=== PATIENT | female | born 1990 | race Caucasian/White ===

== ENCOUNTER 2016-08-20 01:28 | Emergency (ER) | payer OTHER ==
[2016-08-20 01:36] VITALS: BP 111/73; PULSE 84; RESP 20; TEMP 98.2
[2016-08-20 01:58] LABS: Appearance,Urine Cloudy (Clear); Bacteria,Urine Occasional /hpf; Bilirubin,Urine Negative (Negative); Calcium Oxalate Crystals,Urine Rare /hpf; Glucose,Urine (UA) Negative (Negative); Ketones,Urine Negative (Negative); Leukocyte Esterase,Urine Small (Negative); Mucus,Urine Occasional /hpf; Nitrite,Urine Negative (Negative); PH, Urine 5.5 (5.0-8.0); Particle Count 11383; Protein,Urine Trace (Negative); RBC,Urine 3 /hpf (0-5); Specific Gravity,Urine 1.029 (1.001-1.035); Squamous Epithelial Cell,Urine 9 /hpf (0-4); UA Billing (MACRO vs. MICRO) MICRO; WBC,Urine 2 /hpf (0-5)
[2016-08-20] MEDS ORDERED: IBUPROFEN 600 MG TAB PO STA (02:19)
--- NOTE | 2016-08-20 03:30 | ED ---
Female Urogenital HPI - General Chief complaint: Urogenital Stated complaint: Female Time Seen by Provider: 08/20/16 01:42 Source: patient, RN notes reviewed Mode of arrival: ambulatory Limitations: no limitations - History of Present Illness Initial comments: Patient is a 26-year-old female presents to the emergency room for evaluation of lower pelvic pain. Patient states the pain going on for the past week. Patient states the pain has been worsening throughout the night and this morning. Patient states she is having left lower quadrant pain. Patient states she is having 8 out of 10 constant pain that will not subside. Patient denies taking anything for her symptoms. Patient states her last menses was about a month ago. Patient is not sure if she is . Patient denies pain or burning during urination, trouble urinating or blood in urine. Patient states she has a history of chlamydia. Patient denies nausea or vomiting. Patient denies chest pain or shortness of breath. Patient denies headache or dizziness. Patient does state she smokes daily. Last Menstrual Period: 07/17/16 - Related Data Home Medications Medication Instructions Recorded Confirmed Ibuprofen [Motrin] 800 mg PO Q6HR PRN 04/01/15 10/22/15 Albuterol Inhaler [Ventolin Hfa 2 puff INHALATION RT-Q4H PRN 09/30/15 10/22/15 Inhaler] Omeprazole 20 mg PO PC-LUNCH 09/30/15 10/22/15 Gabapentin [Gabapentin] 300 mg PO BID 10/22/15 10/22/15 HYDROcodone/APAP 5-325MG [[place] 5] 1 tab PO Q4-6H PRN 10/22/15 10/22/15 Previous Rx's Medication Instructions Recorded traMADol HCl [Ultram] 50 mg PO Q6H PRN #20 tab 03/12/15 Naproxen [Naprosyn] 500 mg PO Q12HR #20 tab 09/30/15 Ibuprofen [Motrin] 600 mg PO Q6HR PRN #20 tab 08/20/16 Allergies Allergy/AdvReac Type Severity Reaction Status Date / Time codeine AdvReac Swelling Verified 08/20/16 01:37 Review of Systems ROS Statement: Those systems with pertinent positive or pertinent negative responses have been documented in the HPI. ROS Other: All systems not noted in ROS Statement are negative. Past Medical History Past Medical History: Asthma History of Any Multi-Drug Resistant Organisms: None Reported Past Surgical History: Adenoidectomy, Section Additional Past Surgical History / Comment(s): left knee, Past Psychological History: Anxiety, Bipolar, Depression Smoking Status: Current every day smoker Past Alcohol Use History: None Reported Past Drug Use History: None Reported General Exam - General Exam Comments Initial Comments: laying in exam room, no acute distress. Limitations: no limitations General appearance: alert, in no apparent distress Head exam: Present: atraumatic, normocephalic, normal inspection Eye exam: Present: normal appearance ENT exam: Present: normal exam Neck exam: Present: normal inspection Respiratory exam: Present: normal lung sounds bilaterally. Absent: respiratory distress Cardiovascular Exam: Present: regular rate, normal rhythm, normal heart sounds GI/Abdominal exam: Present: soft, tenderness (LLQ), normal bowel sounds. Absent : distended, guarding, rebound, rigid External exam: Present: normal external exam Speculum exam: Present: vaginal discharge By manual exam: Present: adnexal tenderness (left). Absent: cervical motion tenderness Extremities exam: Present: normal inspection Back exam: Present: normal inspection Neurological exam: Present: alert, oriented X3, CN II-XII intact, normal gait Psychiatric exam: Present: normal affect, normal mood Skin exam: Present: warm, dry, intact, normal color. Absent: rash Course Vital Signs 08/20/16 01:33 Temperature 98.2 F Pulse Rate 84 Respiratory 20 Rate Blood Pressure 111/73 O2 Sat by Pulse 98 Oximetry Medical Decision Making - Medical Decision Making patient is a 26-year-old female presents to the emergency room for reevaluation left lower quadrant pain. Ultrasound shows no signs of ovarian cyst or ovarian torsion. Urinalysis shows no significant findings. Vaginal cultures pending. Patient advised follow-up with either primary care provider or [facility]. Patient states she understands everything that was discussed with her. Return parameters discussed. Case discussed Dr. Maravilla. - Lab Data Lab Results 08/20/16 08/20/16 08/20/16 Range/Units 01:46 01:46 02:31 Urine Color Yellow Urine Appearance Cloudy H (Clear) Urine pH 5.5 (5.0-8.0) Ur Specific [place] 1.029 (1.001-1.035) Urine Protein Trace H (Negative) Urine Glucose (UA) Negative (Negative) Urine Ketones Negative (Negative) Urine Blood Negative (Negative) Urine Nitrite Negative (Negative) Urine Bilirubin Negative (Negative) Urine Urobilinogen 2.0 (<2.0) mg/dL Ur Leukocyte Esterase Small H (Negative) Urine RBC 3 (0-5) /hpf Urine WBC 2 (0-5) /hpf Ur Squamous Epith Cells 9 H (0-4) /hpf Calcium Oxalate Crystal Rare H (None) /hpf Urine Bacteria Occasional H (None) /hpf Urine Mucus Occasional H (None) /hpf Urine HCG, Qual Not Detected (Not Detectd) Trichomonas Ag (Rapid) Negative (Negative) - Radiology Data Radiology results: report reviewed, image reviewed Disposition Clinical Impression: Abdominal pain Disposition: HOME SELF-CARE Condition: Good Instructions: Abdominal Pain (ED) Additional Instructions: Take ibuprofen as needed for pain. Apply warm moist heat. Please follow-up with primary care provider or [facility] for further evaluation. If any new symptom arises or symptoms worsen, return to ER as soon as possible. Prescriptions: Ibuprofen [Motrin] 600 mg PO Q6HR PRN #20 tab PRN Reason: Pain Referrals: Ana María Lozano MD [STAFF PHYSICIAN] - 1-2 days Marilyn Vaughn DO [Doctor of Osteopathic Medicine] - 1-2 days Time of Disposition: 04:04
--- NOTE | 2016-08-20 04:03 | US ---
EXAM: US FEMALE PELVIS CLINICAL HISTORY: Reason: Pain TECHNIQUE: Real-time transabdominal and transvaginal female pelvic ultrasound COMPARISON: No relevant prior studies available. FINDINGS: Uterus/cervix: The uterus measures 9.4 x 5.6 x 4.9 cm. The uterus is anteverted. No masses. The endometrium measures up to 14 mm. Nabothian cysts are noted within the cervix. Ovaries: The right ovary measures 3.1 x 1.6 x 1.5 cm. Left ovary measures 3.3 x 1.9 x 1.6 cm. No mass. No torsion. Free fluid: Trace amount of free fluid within the pelvis. IMPRESSION: No acute findings.
== END 2016-08-20 04:11 | disposition home or self-care (01) ==
LOC: EC 01:28
DX: R10.32 Left lower quadrant pain (principal); N89.8 Other specified noninflammatory disorders of vagina; F17.200 Nicotine dependence, unspecified, uncomplicated; Z79.899 Other long term (current) drug therapy; Z88.5 Allergy status to narcotic agent
CPT/HCPCS: 76830; 81001; 81025; 87491; 87591; 87808; 93975; 99284

== ENCOUNTER 2016-09-26 16:13 | Emergency (ER) | payer OTHER ==
[2016-09-26] MEDS ORDERED: KETOROLAC 30 MG/ML 1 ML VIAL IVP STA (16:47)
[2016-09-26] MEDS ORDERED: ONDANSETRON 4 MG/2 ML VIAL IVP STA (16:47)
[2016-09-26] MEDS ORDERED: SODIUM CHLORIDE 0.9% 1,000 ML IV ONE (16:47)
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
[2016-09-26 17:06] LABS: Basophils # (A) 0.1 k/uL (0-0.2); Basophils % (A) 1 %; CH 28.8; CHCM 33.5; Eosinophils # (A) 0.1 k/uL (0-0.7); Eosinophils % (A) 1 %; HCT 41.4 % (34.0-46.0); HDW 2.33; HGB 14.1 gm/dL (11.4-16.0); Luc # (Auto) 0.15; Luc % (Auto) 2; Lymphocytes # (A) 2.8 k/uL (1.0-4.8); Lymphocytes % (A) 28 %; MCH 29.4 pg (25.0-35.0); MCHC 34.2 g/dL (31.0-37.0); MCV 86.2 fL (80.0-100.0); Mean Platelet Volume 8.3; Monocytes # (A) 0.5 k/uL (0-1.0); Monocytes % (A) 5 %; Neutrophils # (A) 6.3 k/uL (1.3-7.7); Neutrophils % (A) 64 %; RDW 15.6 % (11.5-15.5); WBC 9.8 k/uL (3.8-10.6); WBC (Perox) 9.66
--- NOTE | 2016-09-26 17:40 | US ---
EXAMINATION TYPE: US pelvis complete transvag DATE OF EXAM: 09/26/2016 COMPARISON: NONE CLINICAL HISTORY: Low abd pain and nausea and vomiting x 1 week TECHNIQUE: Date of LMP: 08/21/2016 EXAM MEASUREMENTS: Uterus: 10.4 x 5.6 x 5.8 cm Endometrial Stripe: 1.7 cm Right Ovary: 2.3 x 1.7 x 2.2 cm Left Ovary: 2.7 x 1.8 x 2.8 cm Limited examination due to bowel gas. 1. Uterus: anteverted, appears wnl 2. Endometrium: appears thickened 3. Right Ovary: appears wnl 4. Left Ovary: appears wnl Spectral, color and waveform doppler imaging shows good arterial and venous flow within the ovaries ; there is no evidence for ovarian torsion. 5. Bilateral Adnexa: appears wnl 6. Posterior cul-de-sac: appears wnl IMPRESSION: Negative transabdominal pelvic sonogram. There is borderline enlarged endometrium.
[2016-09-26 17:47] LABS: ALT 37 U/L (9-52); AST 20 U/L (14-36); Alkaline Phosphatase 66 U/L (38-126); Anion Gap 13 mmol/L; Blood Urea Nitrogen 11 mg/dL (7-17); Calcium 9.4 mg/dL (8.4-10.2); Carbon Dioxide 19 mmol/L (22-30); Chloride 108 mmol/L (98-107); Glucose 147 mg/dL (74-99); Non-African American GFR(MDRD) >60 (>60 ml/min/1.73 sqM); Sodium 140 mmol/L (137-145); Total Bilirubin 0.4 mg/dL (0.2-1.3); Total Protein 6.6 g/dL (6.3-8.2)
[2016-09-26 18:49] LABS: Appearance,Urine Clear (Clear); Bilirubin,Urine Negative (Negative); Glucose,Urine (UA) 2+ (Negative); Ketones,Urine Negative (Negative); Leukocyte Esterase,Urine Small (Negative); Mucus,Urine Rare /hpf; Nitrite,Urine Negative (Negative); PH, Urine 6.5 (5.0-8.0); Particle Count 4210; Protein,Urine Negative (Negative); RBC,Urine 1 /hpf (0-5); Specific Gravity,Urine 1.013 (1.001-1.035); Squamous Epithelial Cell,Urine 2 /hpf (0-4); UA Billing (MACRO vs. MICRO) MICRO; Urobilinogen,Urine <2.0 mg/dL (<2.0); WBC,Urine 1 /hpf (0-5)
[2016-09-26 19:23] VITALS: PULSE 80; RESP 18
[2016-09-26 20:36] VITALS: BP 119/68; TEMP 98.8
== END 2016-09-26 20:36 | disposition home or self-care (01) ==
LOC: EC 16:13
DX: O21.0 Mild hyperemesis gravidarum (principal); O99.89 Other specified diseases and conditions complicating pregnancy, childbirth and the puerperium; R10.2 Pelvic and perineal pain; O99.331 Smoking (tobacco) complicating pregnancy, first trimester; F17.200 Nicotine dependence, unspecified, uncomplicated; Z3A.01 Less than 8 weeks gestation of pregnancy; Z88.5 Allergy status to narcotic agent
CPT/HCPCS: 99284; 96374; 96375; 96361 ×3; 36415; 80053; 83605; 83690; 85025; 81001; 81025; 84702; 87808; 87491; 87591; 93976; 76856; J2405; J1885

== ENCOUNTER 2017-04-09 17:31 | Emergency (ER) | payer OTHER ==
[2017-04-09 17:39] VITALS: TEMP 98.1
[2017-04-09] MEDS ORDERED: methylPREDNISolone SOD SUCCI 125 MG/2 ML VIAL IV STA (17:58)
[2017-04-09] MEDS ORDERED: ALBUTEROL NEBULIZED 2.5 MG/3 ML INHALATION STA (17:58)
[2017-04-09] MEDS ORDERED: SODIUM CHLORIDE 0.9% 1,000 ML IV STA (18:03)
--- NOTE | 2017-04-09 18:15 | ED ---
General Adult HPI - General Chief complaint: Chest Pain Stated complaint: Chest Pain/PEARL Time Seen by Provider: 04/09/17 17:37 Source: patient, RN notes reviewed Mode of arrival: EMS Limitations: no limitations - History of Present Illness Initial comments: 26-year-old female presents to the emergency department with a chief complaint of difficulty in breathing. Patient states that she is an asthmatic. Patient states she is 33 weeks . Patient states that she started to have some difficulty breathing last night and then today she was at a store that had a high chemical smell and she has had increased difficulty in breathing since then. Patient is a smoker. Patient states that she called her doctor and they referred her here. She just feels very tight like she can't get a good deep breath. Patient also admits to some lower abdominal pain with this. Patient denies any fever or chills. She does admit to a cough. Patient denies any recent fever, chills, back pain, abdominal pain, nausea vomiting, numbness or tingling, dysuria or hematuria, constipation or diarrhea, headaches or visual changes, or any other current symptoms. - Related Data Previous Rx's Medication Instructions Recorded Albuterol Nebulized [Ventolin 2.5 mg INHALATION Q4H #20 nebu 04/09/17 Nebulized] Allergies Allergy/AdvReac Type Severity Reaction Status Date / Time codeine AdvReac Swelling Verified 04/09/17 17:44 Review of Systems ROS Statement: Those systems with pertinent positive or pertinent negative responses have been documented in the HPI. ROS Other: All systems not noted in ROS Statement are negative. Past Medical History Past Medical History: Asthma History of Any Multi-Drug Resistant Organisms: None Reported Past Surgical History: Adenoidectomy, Section Additional Past Surgical History / Comment(s): left knee, Past Psychological History: Anxiety, Bipolar, Depression Smoking Status: Current every day smoker Past Alcohol Use History: None Reported Past Drug Use History: None Reported General Exam Limitations: no limitations General appearance: alert, in no apparent distress Eye exam: Present: normal appearance, PERRL, EOMI. Absent: scleral icterus, conjunctival injection, periorbital swelling ENT exam: Present: normal exam, mucous membranes moist Neck exam: Present: normal inspection. Absent: tenderness, meningismus, lymphadenopathy Respiratory exam: Present: normal lung sounds bilaterally, wheezes (expiratory) , decreased breath sounds. Absent: respiratory distress, rales, rhonchi, stridor Cardiovascular Exam: Present: regular rate, normal rhythm, normal heart sounds. Absent: systolic murmur, diastolic murmur, rubs, gallop, clicks Neurological exam: Present: alert, oriented X3 Psychiatric exam: Present: normal affect, normal mood Skin exam: Present: warm, dry, intact, normal color. Absent: rash Course Vital Signs 04/09/17 04/09/17 04/09/17 17:36 18:39 18:59 Temperature 98.1 F Pulse Rate 105 H 78 80 Respiratory 20 Rate Blood Pressure 139/64 O2 Sat by Pulse 94 L Oximetry 04/09/17 19:34 Temperature Pulse Rate 115 H Respiratory 17 Rate Blood Pressure 130/60 O2 Sat by Pulse 95 Oximetry Medical Decision Making - Medical Decision Making 26-year-old female presents to the emergency department with chief complaint of shortness of breath with a history of asthma. At this time patient is reevaluated and she states she's feeling better. We did discuss staying away from fumes. We did discuss most likely asthma exacerbation. We will put her on treatments for home. We discussed follow-up with her family care doctor we discussed return parameters all questions. We discussed no smoking. Patient stated that she understood and she is in agreement with this plan. All questions have been answered. She'll be discharged. - Lab Data Result diagrams: 04/09/17 18:28 04/09/17 18:28 Lab Results 04/09/17 04/09/17 Range/Units 18:28 18:28 WBC 10.2 (3.8-10.6) k/uL RBC 3.83 (3.80-5.40) m/uL Hgb 10.8 L (11.4-16.0) gm/dL Hct 33.2 L (34.0-46.0) % MCV 86.8 (80.0-100.0) fL MCH 28.1 (25.0-35.0) pg MCHC 32.4 (31.0-37.0) g/dL RDW 14.0 (11.5-15.5) % Plt Count 261 (150-450) k/uL Neutrophils % 75 % Lymphocytes % 14 % Monocytes % 7 % Eosinophils % 2 % Basophils % 0 % Neutrophils # 7.6 (1.3-7.7) k/uL Lymphocytes # 1.5 (1.0-4.8) k/uL Monocytes # 0.7 (0-1.0) k/uL Eosinophils # 0.2 (0-0.7) k/uL Basophils # 0.0 (0-0.2) k/uL Sodium 138 (137-145) mmol/L Potassium 3.6 (3.5-5.1) mmol/L Chloride 109 H (98-107) mmol/L Carbon Dioxide 20 L (22-30) mmol/L Anion Gap 9 mmol/L BUN 7 (7-17) mg/dL Creatinine 0.60 (0.52-1.04) mg/dL Est GFR (MDRD) Af Amer >60 (>60 ml/min/1.73 sqM) Est GFR (MDRD) Non-Af >60 (>60 ml/min/1.73 sqM) Glucose 115 H (74-99) mg/dL Calcium 8.6 (8.4-10.2) mg/dL Total Bilirubin 0.3 (0.2-1.3) mg/dL AST 16 (14-36) U/L ALT 17 (9-52) U/L Alkaline Phosphatase 115 (38-126) U/L Total Protein 5.9 L (6.3-8.2) g/dL Albumin 3.1 L (3.5-5.0) g/dL Disposition Clinical Impression: Asthma exacerbation Disposition: HOME SELF-CARE Condition: Stable Instructions: Asthma (ED) Additional Instructions: Please use medication as discussed. Please follow up with family doctor if symptoms have not improved over the next two days. Please return to the emergency room if your symptoms increase or worsen or for any other concerns. Prescriptions: Albuterol Nebulized [Ventolin Nebulized] 2.5 mg INHALATION Q4H #20 nebu Referrals: Maurilio Paniagua MD [STAFF PHYSICIAN] - 1-2 days Time of Disposition: 20:00
[2017-04-09] MEDS ORDERED: METOCLOPRAMIDE 5 MG/ML 2 ML VIAL IVP STA (18:22)
[2017-04-09 18:39] LABS: Basophils % (A) 0 %; Eosinophils # (A) 0.2 k/uL (0-0.7); Eosinophils % (A) 2 %; HCT 33.2 % (34.0-46.0); HGB 10.8 gm/dL (11.4-16.0); Lymphocytes # (A) 1.5 k/uL (1.0-4.8); Lymphocytes % (A) 14 %; MCH 28.1 pg (25.0-35.0); MCHC 32.4 g/dL (31.0-37.0); MCV 86.8 fL (80.0-100.0); Monocytes # (A) 0.7 k/uL (0-1.0); Monocytes % (A) 7 %; Neutrophils # (A) 7.6 k/uL (1.3-7.7); Neutrophils % (A) 75 %; Platelet Count 261 k/uL (150-450); RBC 3.83 m/uL (3.80-5.40); WBC 10.2 k/uL (3.8-10.6)
[2017-04-09 18:49] LABS: ALT 17 U/L (9-52); AST 16 U/L (14-36); Albumin 3.1 g/dL (3.5-5.0); Alkaline Phosphatase 115 U/L (38-126); Anion Gap 9 mmol/L; Blood Urea Nitrogen 7 mg/dL (7-17); Calcium 8.6 mg/dL (8.4-10.2); Carbon Dioxide 20 mmol/L (22-30); Chloride 109 mmol/L (98-107); Glucose 115 mg/dL (74-99); Potassium 3.6 mmol/L (3.5-5.1); Sodium 138 mmol/L (137-145); Total Bilirubin 0.3 mg/dL (0.2-1.3); Total Protein 5.9 g/dL (6.3-8.2)
[2017-04-09 19:36] VITALS: BP 130/60; PULSE 115; RESP 17
== END 2017-04-09 20:15 | disposition home or self-care (01) ==
LOC: EC 17:31
DX: O99.513 Diseases of the respiratory system complicating pregnancy, third trimester (principal); J45.901 Unspecified asthma with (acute) exacerbation; O99.89 Other specified diseases and conditions complicating pregnancy, childbirth and the puerperium; R10.30 Lower abdominal pain, unspecified; O99.333 Smoking (tobacco) complicating pregnancy, third trimester; F17.200 Nicotine dependence, unspecified, uncomplicated; Z88.5 Allergy status to narcotic agent; Z3A.33 33 weeks gestation of pregnancy; Z98.890 Other specified postprocedural states
CPT/HCPCS: 36415; 94640; 93005; 80053; 85025; 99285; 96374; 96375; 96361; J2765; J2930

== ENCOUNTER 2018-06-29 22:00 | Emergency (ER) | payer OTHER ==
[2018-06-29 22:05] VITALS: RESP 16; TEMP 98.6
--- NOTE | 2018-06-29 22:35 | ED ---
Abdominal Pain HPI - General Chief Complaint: Abdominal Pain Stated Complaint: Abd pain, vaginal bleeding Time Seen by Provider: 06/29/18 22:26 Source: patient Mode of arrival: ambulatory Limitations: no limitations - History of Present Illness Initial Comments: This patient is a 28-year-old woman who presents to be evaluated for lower abdominal cramping and irregular menstrual cycle. Patient states that she has been having irregular cycles for the past 3 months or so. Her last menstrual cycle had been May 23. She states that in addition for the past 3 weeks she has had pain across her low abdomen. She states that it is a constant crampy sensation, moderate intensity. She has not noted any worsening or relieving factors. She has not noted a change in bowel movements or in urination. No vaginal discharge. MD Complaint: abdominal pain Onset/Timin -: week(s) Location: LLQ, RLQ, suprapubic Radiation: none Severity: moderate Quality: cramping Consistency: constant Improves With: nothing Worsens With: nothing - Related Data Home Medications Medication Instructions Recorded Confirmed ALPRAZolam [Xanax] 0.25 mg PO TID PRN 06/29/18 06/29/18 OXcarbazepine [Trileptal] 150 mg PO BID 06/29/18 06/29/18 buPROPion XL [Wellbutrin Xl] 150 mg PO DAILY 06/29/18 06/29/18 Allergies Allergy/AdvReac Type Severity Reaction Status Date / Time codeine AdvReac Swelling Verified 06/29/18 22:52 Review of Systems ROS Statement: Those systems with pertinent positive or pertinent negative responses have been documented in the HPI. ROS Other: All systems not noted in ROS Statement are negative. Constitutional: Denies: fever, chills Respiratory: Denies: cough, dyspnea Cardiovascular: Denies: chest pain, palpitations, edema Gastrointestinal: Reports: abdominal pain. Denies: nausea, vomiting, diarrhea, constipation Genitourinary: Reports: abnormal menses. Denies: dysuria, frequency, hematuria, discharge Musculoskeletal: Denies: back pain Skin: Denies: rash Neurological: Denies: headache, weakness, numbness Past Medical History Past Medical History: Asthma History of Any Multi-Drug Resistant Organisms: None Reported Past Surgical History: Adenoidectomy, Section Additional Past Surgical History / Comment(s): left knee, Past Psychological History: Anxiety, Bipolar, Depression Smoking Status: Current every day smoker Past Alcohol Use History: None Reported Past Drug Use History: Marijuana General Exam Limitations: no limitations General appearance: alert, in no apparent distress Head exam: Present: atraumatic, normocephalic Eye exam: Present: normal appearance. Absent: scleral icterus, conjunctival i njection ENT exam: Present: normal oropharynx Neck exam: Present: normal inspection Respiratory exam: Present: normal lung sounds bilaterally. Absent: respiratory distress, wheezes, rales, rhonchi, stridor Cardiovascular Exam: Present: regular rate, normal rhythm, normal heart sounds. Absent: systolic murmur, diastolic murmur, rubs, gallop GI/Abdominal exam: Present: soft, normal bowel sounds. Absent: distended, tenderness, guarding, rebound, rigid, mass, pulsatile mass, hernia Extremities exam: Present: normal inspection, normal capillary refill. Absent: pedal edema, calf tenderness Back exam: Present: normal inspection. Absent: CVA tenderness (R), CVA tenderness (L) Neurological exam: Present: alert Skin exam: Present: warm, dry, intact, normal color. Absent: rash Course Vital Signs 06/29/18 22:02 Temperature 98.6 F Pulse Rate 80 Respiratory 16 Rate Blood Pressure 105/71 O2 Sat by Pulse 97 Oximetry Medical Decision Making - Lab Data Result diagrams: 06/29/18 22:42 06/29/18 22:42 Lab Results 06/29/18 06/29/18 06/29/18 Range/Units 22:42 22:42 22:42 WBC 14.2 H (3.8-10.6) k/uL RBC 4.77 (3.80-5.40) m/uL Hgb 14.5 (11.4-16.0) gm/dL Hct 43.3 (34.0-46.0) % MCV 90.8 (80.0-100.0) fL MCH 30.4 (25.0-35.0) pg MCHC 33.5 (31.0-37.0) g/dL RDW 13.6 (11.5-15.5) % Plt Count 304 (150-450) k/uL Neutrophils % 79 % Lymphocytes % 14 % Monocytes % 4 % Eosinophils % 1 % Basophils % 0 % Neutrophils # 11.3 H (1.3-7.7) k/uL Lymphocytes # 2.0 (1.0-4.8) k/uL Monocytes # 0.6 (0-1.0) k/uL Eosinophils # 0.1 (0-0.7) k/uL Basophils # 0.1 (0-0.2) k/uL Sodium 138 (137-145) mmol/L Potassium 4.3 (3.5-5.1) mmol/L Chloride 108 H (98-107) mmol/L Carbon Dioxide 22 (22-30) mmol/L Anion Gap 8 mmol/L BUN 13 (7-17) mg/dL Creatinine 0.88 (0.52-1.04) mg/dL Est GFR (CKD-EPI)AfAm >90 (>60 ml/min/1.73 sqM) Est GFR (CKD-EPI)NonAf >90 (>60 ml/min/1.73 sqM) Glucose 87 (74-99) mg/dL Calcium 9.3 (8.4-10.2) mg/dL Total Bilirubin 0.7 (0.2-1.3) mg/dL AST 22 (14-36) U/L ALT 26 (9-52) U/L Alkaline Phosphatase 48 (38-126) U/L Total Protein 6.5 (6.3-8.2) g/dL Albumin 4.1 (3.5-5.0) g/dL Amylase <30 L (30-110) U/L Lipase 82 (23-300) U/L Urine Color Urine Appearance (Clear) Urine pH (5.0-8.0) Ur Specific [place] (1.001-1.035) Urine Protein (Negative) Urine Glucose (UA) (Negative) Urine Ketones (Negative) Urine Blood (Negative) Urine Nitrite (Negative) Urine Bilirubin (Negative) Urine Urobilinogen (<2.0) mg/dL Ur Leukocyte Esterase (Negative) Urine RBC (0-5) /hpf Urine WBC (0-5) /hpf Ur Squamous Epith Cells (0-4) /hpf Urine Mucus (None) /hpf Urine HCG, Qual Detected (Not Detectd) 06/29/18 Range/Units 22:42 WBC (3.8-10.6) k/uL RBC (3.80-5.40) m/uL Hgb (11.4-16.0) gm/dL Hct (34.0-46.0) % MCV (80.0-100.0) fL MCH (25.0-35.0) pg MCHC (31.0-37.0) g/dL RDW (11.5-15.5) % Plt Count (150-450) k/uL Neutrophils % % Lymphocytes % % Monocytes % % Eosinophils % % Basophils % % Neutrophils # (1.3-7.7) k/uL Lymphocytes # (1.0-4.8) k/uL Monocytes # (0-1.0) k/uL Eosinophils # (0-0.7) k/uL Basophils # (0-0.2) k/uL Sodium (137-145) mmol/L Potassium (3.5-5.1) mmol/L Chloride (98-107) mmol/L Carbon Dioxide (22-30) mmol/L Anion Gap mmol/L BUN (7-17) mg/dL Creatinine (0.52-1.04) mg/dL Est GFR (CKD-EPI)AfAm (>60 ml/min/1.73 sqM) Est GFR (CKD-EPI)NonAf (>60 ml/min/1.73 sqM) Glucose (74-99) mg/dL Calcium (8.4-10.2) mg/dL Total Bilirubin (0.2-1.3) mg/dL AST (14-36) U/L ALT (9-52) U/L Alkaline Phosphatase (38-126) U/L Total Protein (6.3-8.2) g/dL Albumin (3.5-5.0) g/dL Amylase (30-110) U/L Lipase (23-300) U/L Urine Color Yellow Urine Appearance Cloudy H (Clear) Urine pH 6.0 (5.0-8.0) Ur Specific [place] 1.026 (1.001-1.035) Urine Protein Trace H (Negative) Urine Glucose (UA) Negative (Negative) Urine Ketones Trace H (Negative) Urine Blood Negative (Negative) Urine Nitrite Negative (Negative) Urine Bilirubin Negative (Negative) Urine Urobilinogen 2.0 (<2.0) mg/dL Ur Leukocyte Esterase Moderate H (Negative) Urine RBC 1 (0-5) /hpf Urine WBC 5 (0-5) /hpf Ur Squamous Epith Cells 33 H (0-4) /hpf Urine Mucus Occasional H (None) /hpf Urine HCG, Qual (Not Detectd) Disposition Clinical Impression: , Abdominal pain Disposition: HOME SELF-CARE Condition: Good Instructions (If sedation given, give patient instructions): Abdominal Pain in (ED) Is patient prescribed a controlled substance at d/c from ED?: No Referrals: Maurilio Paniagua MD [Primary Care Provider] - 1-2 days
[2018-06-29 22:52] LABS: Basophils # (A) 0.1 k/uL (0-0.2); Basophils % (A) 0 %; Eosinophils # (A) 0.1 k/uL (0-0.7); Eosinophils % (A) 1 %; HCT 43.3 % (34.0-46.0); HGB 14.5 gm/dL (11.4-16.0); Lymphocytes % (A) 14 %; MCH 30.4 pg (25.0-35.0); MCHC 33.5 g/dL (31.0-37.0); MCV 90.8 fL (80.0-100.0); Monocytes # (A) 0.6 k/uL (0-1.0); Monocytes % (A) 4 %; Neutrophils # (A) 11.3 k/uL (1.3-7.7); Neutrophils % (A) 79 %; Platelet Count 304 k/uL (150-450); RBC 4.77 m/uL (3.80-5.40); RDW 13.6 % (11.5-15.5); WBC 14.2 k/uL (3.8-10.6)
[2018-06-29 22:56] LABS: Appearance,Urine Cloudy (Clear); Bilirubin,Urine Negative (Negative); Blood,Urine Negative (Negative); Color,Urine Yellow; Glucose,Urine (UA) Negative (Negative); Ketones,Urine Trace (Negative); Leukocyte Esterase,Urine Moderate (Negative); Mucus,Urine Occasional /hpf; Nitrite,Urine Negative (Negative); Protein,Urine Trace (Negative); RBC,Urine 1 /hpf (0-5); Specific Gravity,Urine 1.026 (1.001-1.035); Squamous Epithelial Cell,Urine 33 /hpf (0-4); WBC,Urine 5 /hpf (0-5)
[2018-06-29 23:12] LABS: ALT 26 U/L (9-52); AST 22 U/L (14-36); Albumin 4.1 g/dL (3.5-5.0); Alkaline Phosphatase 48 U/L (38-126); Amylase <30 U/L (30-110); Anion Gap 8 mmol/L; Blood Urea Nitrogen 13 mg/dL (7-17); Calcium 9.3 mg/dL (8.4-10.2); Carbon Dioxide 22 mmol/L (22-30); Chloride 108 mmol/L (98-107); Glucose 87 mg/dL (74-99); Lipase 82 U/L (23-300); Potassium 4.3 mmol/L (3.5-5.1); Sodium 138 mmol/L (137-145); Total Bilirubin 0.7 mg/dL (0.2-1.3); Total Protein 6.5 g/dL (6.3-8.2)
[2018-06-29] MEDS ORDERED: ACETAMINOPHEN TAB 325 MG TAB PO STA (23:29)
[2018-06-30 01:09] VITALS: BP 104/61; PULSE 77
--- NOTE | 2018-06-30 01:47 | US ---
EXAM: US Pelvis, Transvaginal CLINICAL HISTORY: Pain TECHNIQUE: Real-time transvaginal pelvic ultrasound (complete) with image documentation. Transvaginal imaging was used for better evaluation of the endometrium and adnexa. COMPARISON: 10/07/2016 FINDINGS: Uterus/cervix: The endometrial stripe is prominent measuring 1.9 cm in thickness. The uterus measures 9.5 x 5 x 6.1 cm. No myometrial mass. Right ovary: The right ovary is not identified either transabdominally or transvaginally. Left ovary: The left ovary measures 2.5 x 3.9 x 2.7 cm. There is a questionable isoechoic rounded structure within the ovary measuring 1.7 x 1.9 cm. Prominent peripheral vascular flow is noted along the margin of this structure. Internal blood flow noted. Free fluid: Trace free fluid noted in the pelvic cul-de-sac. Bladder: Empty bladder which cannot be evaluated with this probe. IMPRESSION: 1. The endometrial stripe is prominent measuring 1.9 cm in thickness. No focal abnormality identified internally. Uterus is otherwise unremarkable. No intrauterine gestation identified. 2. There is a questionable isoechoic rounded structure within the left ovary measuring 1.7 x 1.9 cm. Prominent peripheral vascular flow is noted along the margin of this structure. This demonstrates a sonographic appearance of a early corpus luteum cyst. Please correlate with beta-hCG levels (currently unavailable). No evidence for torsion. 3. The right ovary is not identified on this examination either transabdominally or transvaginally. 4. Trace free fluid in the pelvic cul-de-sac is of uncertain clinical significance.
== END 2018-06-30 01:45 | disposition home or self-care (01) ==
LOC: EC 22:00
DX: O26.891 Other specified pregnancy related conditions, first trimester (principal); R10.31 Right lower quadrant pain; R10.32 Left lower quadrant pain; Z32.01 Encounter for pregnancy test, result positive; O99.341 Other mental disorders complicating pregnancy, first trimester; F31.9 Bipolar disorder, unspecified; F41.9 Anxiety disorder, unspecified; O99.331 Smoking (tobacco) complicating pregnancy, first trimester; F17.200 Nicotine dependence, unspecified, uncomplicated; Z79.899 Other long term (current) drug therapy; Z88.5 Allergy status to narcotic agent; Z3A.01 Less than 8 weeks gestation of pregnancy; Z53.8 Procedure and treatment not carried out for other reasons
CPT/HCPCS: 36415; 76801; 76817; 80053; 81001; 81025; 82150; 83690; 84702; 85025; 99284

== ENCOUNTER 2018-08-26 18:00 | Emergency (ER) | payer OTHER ==
[2018-08-26 18:14] VITALS: RESP 18
--- NOTE | 2018-08-26 19:58 | US ---
EXAMINATION TYPE: Transabdominal DATE OF EXAM: 08/26/2018 7:43 PM COMPARISON: US CLINICAL HISTORY: Pain. Generalized abdominal,back, and pelvic pain today with nausea and vomiting; G 5P4, smoker EXAM PERFORMED: Transabdominal (TA) EXAM MEASUREMENTS: GESTATIONAL AGE / DATING Physician Established: (11 weeks/6 days) EDC: 03/11/2019 Dates by LMP: LMP unsure Dates by First Scan: no IUP seen on June US. Dates by Current Scan for: nonviable IUP (8 weeks/0 days) MATERNAL ANATOMY Uterus: 13.6 x 8.3 x 7.3cm Right Ovary: 2.9 x 2.6 x 1.2cm Left Ovary: 2.6 x 2.3 x 1.9cm Post CDS / Adnexa: wnl Presence of free fluid: nop Presence of corpus luteal cyst: not identified in either ovary Presence of subchorionic bleed: no GESTATION / SURVEY CRL: 1.5 (8 weeks/0 days) Yolk Sac (normal less than 6mm): not seen Heart Rate: No heart rate detected by Power Color, Color Flow, M Mode or PW Doppler Date of LMP: unsure Beta HcG (if available): Not available Single, non viable, IUP at 8 weeks/0 days; no heart rate detected by Power Color, Color Flow, M Mode or PW Doppler. IMPRESSION: There is evidence of intrauterine demise at approximately 8 weeks gestation.
[2018-08-26] MEDS ORDERED: METOCLOPRAMIDE 5 MG/ML 2 ML VIAL IVP STA (20:00)
[2018-08-26 20:21] LABS: Basophils # (A) 0.1 k/uL (0-0.2); Basophils % (A) 0 %; Eosinophils # (A) 0.1 k/uL (0-0.7); Eosinophils % (A) 1 %; HCT 44.6 % (34.0-46.0); HGB 14.8 gm/dL (11.4-16.0); Lymphocytes # (A) 2.2 k/uL (1.0-4.8); Lymphocytes % (A) 18 %; MCH 30.1 pg (25.0-35.0); MCHC 33.2 g/dL (31.0-37.0); MCV 90.7 fL (80.0-100.0); Mean Platelet Volume 8.2; Monocytes # (A) 0.6 k/uL (0-1.0); Monocytes % (A) 4 %; Neutrophils # (A) 9.6 k/uL (1.3-7.7); Neutrophils % (A) 75 %; Platelet Count 272 k/uL (150-450); RBC 4.92 m/uL (3.80-5.40); RDW 13.8 % (11.5-15.5); WBC 12.8 k/uL (3.8-10.6)
[2018-08-26 20:27] LABS: Appearance,Urine Cloudy (Clear); Bilirubin,Urine Negative (Negative); Blood,Urine Negative (Negative); Color,Urine Yellow; Glucose,Urine (UA) Negative (Negative); Ketones,Urine Negative (Negative); Leukocyte Esterase,Urine Negative (Negative); Mucus,Urine Rare /hpf; Nitrite,Urine Negative (Negative); Protein,Urine Negative (Negative); Specific Gravity,Urine 1.016 (1.001-1.035); Squamous Epithelial Cell,Urine 16 /hpf (0-4); Urobilinogen,Urine <2.0 mg/dL (<2.0); WBC,Urine 4 /hpf (0-5)
[2018-08-26 20:33] LABS: ALT 16 U/L (9-52); AST 16 U/L (14-36); African American GFR (CKD) >90 (>60 ml/min/1.73 sqM); Albumin 4.6 g/dL (3.5-5.0); Alkaline Phosphatase 64 U/L (38-126); Amylase 41 U/L (30-110); Anion Gap 9 mmol/L; Blood Urea Nitrogen 9 mg/dL (7-17); Calcium 9.5 mg/dL (8.4-10.2); Carbon Dioxide 24 mmol/L (22-30); Chloride 106 mmol/L (98-107); Glucose 96 mg/dL (74-99); Lipase 102 U/L (23-300); Potassium 4.2 mmol/L (3.5-5.1); Sodium 139 mmol/L (137-145); Total Bilirubin 0.4 mg/dL (0.2-1.3); Total Protein 7.2 g/dL (6.3-8.2)
[2018-08-26 20:36] VITALS: TEMP 98.5
[2018-08-26 20:38] LABS: Amphetamine Screen,Urine Not Detected (NotDetected); Barbiturate Screen,Urine Not Detected (NotDetected); Benzodiazepines Screen,Urine Not Detected (NotDetected); Cocaine Screen,Urine Not Detected (NotDetected); Methadone Screen, Urine Not Detected (NotDetected); Opiate Screen,Urine Not Detected (NotDetected); Oxycodone Screen, Urine Not Detected (NotDetected); Phencyclidine Screen,Urine Not Detected (NotDetected); Tricyclic Antidepressant,Urine Not Detected (NotDetected); Urn Cannabinoid Scrn Not Detected (NotDetected)
--- NOTE | 2018-08-26 21:45 | ED ---
Abdominal Pain HPI - General Source: patient Mode of arrival: ambulatory Limitations: no limitations <Atiya Mcintyre - Last Filed: 08/26/18 22:13> <Amna Pringle - Last Filed: 08/27/18 03:57> - General Chief Complaint: Abdominal Pain Stated Complaint: 12 WEEKS PREG, BACK PAIN Time Seen by Provider: 08/26/18 18:28 - History of Present Illness Initial Comments: 28-year-old female presenting for upper abdominal pain all of her back pain. She has a difficult time describing pain. She states it is "all over" . Patient states she experienced this in the past in 2016, she states she has not experienced the pain since. Patient states that the pain began last night. Denies lower abdominal/pevlic pain or vaginal bleeding. Denies fevers, night chills general malaise. Patient states she has been vomiting. Patient denies diarrhea hematemesis melena or hematochezia. Patient denies dysuria urgency frequency. Patient denies history of kidney stones. Patient denies hematuria. Patient states she has had some vomiting on and off with her . Patient states she is unsure if the vomiting is due to not eating all day. She denies chest pain started shortness of breath she denies hemoptysis she does lower external swelling. Remaining review of systems negative upon arrival patient appears well signs of acute distress. (Atiya Mcintyre) - Related Data Home Medications Medication Instructions Recorded Confirmed ALPRAZolam [Xanax] 0.25 mg PO TID PRN 06/29/18 06/29/18 OXcarbazepine [Trileptal] 150 mg PO BID 06/29/18 06/29/18 buPROPion XL [Wellbutrin Xl] 150 mg PO DAILY 06/29/18 06/29/18 Allergies Allergy/AdvReac Type Severity Reaction Status Date / Time codeine AdvReac Swelling Verified 08/26/18 18:11 Review of Systems ROS Other: All systems not noted in ROS Statement are negative. <Atiya Mcintyre - Last Filed: 08/26/18 22:13> ROS Other: All systems not noted in ROS Statement are negative. <Amna Pringle - Last Filed: 08/27/18 03:57> ROS Statement: Those systems with pertinent positive or pertinent negative responses have been documented in the HPI. Past Medical History Past Medical History: Asthma Additional Past Medical History / Comment(s): hypoglycemic History of Any Multi-Drug Resistant Organisms: None Reported Past Surgical History: Adenoidectomy, Section Additional Past Surgical History / Comment(s): left knee, Past Psychological History: Anxiety, Bipolar, Depression Smoking Status: Current every day smoker Past Alcohol Use History: None Reported Past Drug Use History: None Reported, Marijuana <Atiya Mcintyre - Last Filed: 08/26/18 22:13> General Exam Limitations: no limitations <Atiya Mcintyre - Last Filed: 08/26/18 22:13> - General Exam Comments Initial Comments: General: The patient is awake and alert, in no distress, and does not appear acutely ill. Eye: +3 mm pupils are equal, round and reactive to light, extra-ocular movements are intact. No nystagmus. There is normal conjunctiva bilaterally. No signs of icterus. Ears, nose, mouth and throat: There are moist mucous membranes and no oral lesions. Neck: The neck is supple, there is no tenderness or JVD. Cardiovascular: There is a regular rate and rhythm. No murmur, rub or gallop is appreciated. Respiratory: Lungs are clear to auscultation, respirations are non-labored, breath sounds are equal. No wheezes, stridor, rales, or rhonchi. Gastrointestinal: Soft, non-distended, non-tender abdomen without masses or organomegaly noted. There is no rebound or guarding present. No CVA tenderness. Bowel sounds are unremarkable. Musculoskeletal: Normal ROM, no tenderness. Strength 5/5. Sensation intact. Pulses equal bilaterally 2+. Neurological: A&O x 3. CN II-XII intact, There are no obvious motor or sensory deficits. Coordination appears grossly intact. Speech is normal. Skin: Skin is warm and dry and no rashes or lesions are noted. Psychiatric: Cooperative, appropriate mood & affect, normal judgment. (Atiya Mcintyre) Course Vital Signs 08/26/18 08/26/18 08/26/18 18:11 20:00 22:04 Temperature 99.1 F 98.5 F Pulse Rate 80 82 Respiratory 18 18 Rate Blood Pressure 113/78 112/76 O2 Sat by Pulse 98 96 Oximetry Medical Decision Making - Lab Data Result diagrams: 08/26/18 20:00 08/26/18 20:00 <Atiya Mcintyre - Last Filed: 08/26/18 22:13> - Lab Data Result diagrams: 08/26/18 20:00 08/26/18 20:00 <Amna Pringle - Last Filed: 08/27/18 03:57> - Medical Decision Making Appearing 28-year-old female presenting for all over abdominal and back pain. Patient states his most of the upper abdomen she denies any lower pelvic pain times vaginal bleeding. However pelvic ultrasound was obtained revealing demise at 8 weeks. Patient denies vaginal bleeding or fever. Patient has mild leukocytosis urinalysis unremarkable. Patient has a scheduled appointment with Dr. Shaver on Tuesday. I attempted to contact patient's primary OBGYN without success, as did the trade union secretary Yamilet. He is requesting discharge home. Should she stated she was feeling better. Patient was given [facility] emergency departmen t. Patient is instructed return parameters for for worsening pain, persistent vomiting or inability to drink. Patient is to immediately return for fevers. I discussed the case in detail bedtime provider Dr. Pringle who is agreeable with care plan and discharge at this time with strict return parameters as we were not able to contact patient OBGYN. (Atiya Mcintyre) I was available for consultation in the emergency department. The history and physical exam were done by the midlevel provider. I was consulted for this patient's care. I reviewed the case with the midlevel provider and based on their presentation of the patient, I agree with the assessment, medical decision making and plan of care as documented. Chart was dictated using [employer] dictation software. Attempts were made to correct any dictation errors however some typographical errors may persist. (Amna Pringle) - Lab Data Lab Results 08/26/18 08/26/18 08/26/18 Range/Units 20:00 20:00 20:12 WBC 12.8 H (3.8-10.6) k/uL RBC 4.92 (3.80-5.40) m/uL Hgb 14.8 (11.4-16.0) gm/dL Hct 44.6 (34.0-46.0) % MCV 90.7 (80.0-100.0) fL MCH 30.1 (25.0-35.0) pg MCHC 33.2 (31.0-37.0) g/dL RDW 13.8 (11.5-15.5) % Plt Count 272 (150-450) k/uL Neutrophils % 75 % Lymphocytes % 18 % Monocytes % 4 % Eosinophils % 1 % Basophils % 0 % Neutrophils # 9.6 H (1.3-7.7) k/uL Lymphocytes # 2.2 (1.0-4.8) k/uL Monocytes # 0.6 (0-1.0) k/uL Eosinophils # 0.1 (0-0.7) k/uL Basophils # 0.1 (0-0.2) k/uL Sodium 139 (137-145) mmol/L Potassium 4.2 (3.5-5.1) mmol/L Chloride 106 (98-107) mmol/L Carbon Dioxide 24 (22-30) mmol/L Anion Gap 9 mmol/L BUN 9 (7-17) mg/dL Creatinine 0.72 (0.52-1.04) mg/dL Est GFR (CKD-EPI)AfAm >90 (>60 ml/min/1.73 sqM) Est GFR (CKD-EPI)NonAf >90 (>60 ml/min/1.73 sqM) Glucose 96 (74-99) mg/dL Calcium 9.5 (8.4-10.2) mg/dL Total Bilirubin 0.4 (0.2-1.3) mg/dL AST 16 (14-36) U/L ALT 16 (9-52) U/L Alkaline Phosphatase 64 (38-126) U/L Total Protein 7.2 (6.3-8.2) g/dL Albumin 4.6 (3.5-5.0) g/dL Amylase 41 (30-110) U/L Lipase 102 (23-300) U/L Urine Color Yellow Urine Appearance Cloudy H (Clear) Urine pH 6.0 (5.0-8.0) Ur Specific [place] 1.016 (1.001-1.035) Urine Protein Negative (Negative) Urine Glucose (UA) Negative (Negative) Urine Ketones Negative (Negative) Urine Blood Negative (Negative) Urine Nitrite Negative (Negative) Urine Bilirubin Negative (Negative) Urine Urobilinogen <2.0 (<2.0) mg/dL Ur Leukocyte Esterase Negative (Negative) Urine WBC 4 (0-5) /hpf Ur Squamous Epith Cells 16 H (0-4) /hpf Urine Mucus Rare H (None) /hpf Urine Opiates Screen Not Detected (NotDetected) Ur Oxycodone Screen Not Detected (NotDetected) Urine Methadone Screen Not Detected (NotDetected) Ur Propoxyphene Screen Not Detected (NotDetected) Ur Barbiturates Screen Not Detected (NotDetected) U Tricyclic Antidepress Not Detected (NotDetected) Ur Phencyclidine Scrn Not Detected (NotDetected) Ur Amphetamines Screen Not Detected (NotDetected) U Methamphetamines Scrn Not Detected (NotDetected) U Benzodiazepines Scrn Not Detected (NotDetected) Urine Cocaine Screen Not Detected (NotDetected) U Marijuana (THC) Screen Not Detected (NotDetected) Disposition Is patient prescribed a controlled substance at d/c from ED?: No Time of Disposition: 21:44 <Atiya Mcintyre L - Last Filed: 08/26/18 22:13> <Amna Pringle P - Last Filed: 08/27/18 03:57> Clinical Impression: Abdominal pain affecting , demise Disposition: HOME SELF-CARE Condition: Good Instructions (If sedation given, give patient instructions): Miscarriage (ED), Abdominal Pain in (ED) Additional Instructions: Please use medication as discussed. Please follow-up with OBGYN on Tuesday as scheduled however STRICT return parameters as discussed, please return for persistent pain, fevers, uncontrolled vomiting. Please return to emergency room if the symptoms increase or worsen or for any other concerns. Referrals: Maurilio Paniagua MD [Primary Care Provider] - 1-2 days
[2018-08-26] MEDS ORDERED: ONDANSETRON 4 MG/2 ML VIAL IVP STA (21:59)
[2018-08-26] MEDS ORDERED: ACETAMINOPHEN TAB 325 MG TAB PO STA (21:59)
[2018-08-26 22:06] VITALS: BP 112/76; PULSE 82
== END 2018-08-26 22:11 | disposition home or self-care (01) ==
LOC: EC 18:00
DX: O02.1 Missed abortion (principal); O99.111 Other diseases of the blood and blood-forming organs and certain disorders involving the immune mechanism complicating pregnancy, first trimester; D72.829 Elevated white blood cell count, unspecified; O21.9 Vomiting of pregnancy, unspecified; O99.341 Other mental disorders complicating pregnancy, first trimester; F31.9 Bipolar disorder, unspecified; O99.331 Smoking (tobacco) complicating pregnancy, first trimester; F17.200 Nicotine dependence, unspecified, uncomplicated; Z88.5 Allergy status to narcotic agent; Z79.899 Other long term (current) drug therapy; Z98.890 Other specified postprocedural states; Z3A.08 8 weeks gestation of pregnancy
CPT/HCPCS: 36415; 80053; 82150; 83690; 85025; 81001; 80306; 76801; 99284; 96374; 96375; J2765; J2405

== ENCOUNTER 2018-10-09 01:06 | Emergency (ER) | payer OTHER ==
--- NOTE | 2018-10-09 01:28 | ED ---
Fall HPI - General Chief Complaint: Fall Stated Complaint: Head injury-fell down approx 15 steps Time Seen by Provider: 10/09/18 01:08 Source: patient Mode of arrival: ambulatory - History of Present Illness Initial Comments: 28-year-old female presenting today for chief complaint of fall. Patient states that she had 2 drinks tonight. She states that she tripped over her shoe falling down approximately 15 stairs. She states she more so slide, and that the steps were carpeted. Patient denies blood thinners, denies LOC. Patient states that she has a headache and neck pain, upper back pain. Patient denies chest pain, SOB, pain with inspiration, hip or low back pain, patient denies difficulty walking, denies abdominal pain. Denies nausea vomiting. States she has some dizziness with a headache. Denies diplopia, facial trauma, oral trauma. Patient ambulating into the ER without difficulty. Appears well. Does not smell of alcohol, appears alert, oriented and not overtly intoxicated. POC breath ETOH, 0.00 - Related Data Home Medications Medication Instructions Recorded Confirmed ALPRAZolam [Xanax] 0.25 mg PO TID PRN 06/29/18 06/29/18 OXcarbazepine [Trileptal] 150 mg PO BID 06/29/18 06/29/18 buPROPion XL [Wellbutrin Xl] 150 mg PO DAILY 06/29/18 06/29/18 Allergies Allergy/AdvReac Type Severity Reaction Status Date / Time codeine AdvReac Swelling Verified 08/26/18 18:11 Review of Systems ROS Statement: Those systems with pertinent positive or pertinent negative responses have been documented in the HPI. ROS Other: All systems not noted in ROS Statement are negative. Past Medical History Past Medical History: Asthma Additional Past Medical History / Comment(s): hypoglycemic History of Any Multi-Drug Resistant Organisms: None Reported Past Surgical History: Adenoidectomy, Section Additional Past Surgical History / Comment(s): left knee, Past Psychological History: Anxiety, Bipolar, Depression Smoking Status: Current every day smoker Past Alcohol Use History: None Reported Past Drug Use History: None Reported, Marijuana General Exam - General Exam Comments Initial Comments: General: The patient is awake and alert, in no distress, and does not appear acutely ill. Eye: +3 mm pupils are equal, round and reactive to light, extra-ocular movements are intact. No nystagmus. There is normal conjunctiva bilaterally. No signs of icterus. No orbit swelling/step offs. Ears, nose, mouth and throat: There are moist mucous membranes and no oral lesions. No raccoon or sommers sign. Patient has paravertebral tenderness of the cervical spine, minimal midline. Paravertebral tenderness of the thoracic. No midline or paravertebral tenderness of the lumbar spine. No midline tenderness of thoracic spine. Neck: The neck is supple, there is no tenderness or JVD. Cardiovascular: There is a regular rate and rhythm. No murmur, rub or gallop is appreciated. Respiratory: Lungs are clear to auscultation, respirations are non-labored, breath sounds are equal. No wheezes, stridor, rales, or rhonchi. Gastrointestinal: Soft, non-distended, non-tender abdomen without masses or organomegaly noted. There is no rebound or guarding present. Musculoskeletal: Normal ROM, no tenderness. Strength 5/5. Sensation intact. Radial pulses equal bilaterally 2+. Neurological: A&O x 3. CN II-XII intact, There are no obvious motor or sensory deficits. Coordination appears grossly intact. Speech is normal. Finger to nose smooth and coordinated. Gait shows no signs of ataxia. Skin: Skin is warm and dry and no rashes or lesions are noted. Psychiatric: Cooperative, appropriate mood & affect, normal judgment. After CT C-spine negatiave, the patient is able to forward flex extend and flex and rotate at the spine with C collar was removed Limitations: no limitations Course Vital Signs 10/09/18 01:11 Temperature 98.2 F Pulse Rate 84 Respiratory 16 Rate Blood Pressure 128/87 O2 Sat by Pulse 97 Oximetry Medical Decision Making - Medical Decision Making Well appearing 28yo female presenting for fall down steps. Complaints neck, upper back, and head pain. CT brain c-spine (-). Full ROM no pain out of proportion after c-collar removed. C-spine cleared. NO obvious trauma on skin exam. No scalp abnormalities or focal neurological deficits. Patient appears well pain of the lower extremities low back. Remaining imaging studies were negative for acute process. Patient continues to appear well at this time I feel patient is stable for discharge to outpatient primary care provider. Retur n parameters were discussed the patient was discharged appearing well. Discussed case with Dr. Anderson prior to discharge. Disposition Clinical Impression: Fall, Headache, Neck strain Disposition: HOME SELF-CARE Condition: Good Instructions (If sedation given, give patient instructions): Muscle Strain (ED) Additional Instructions: Please use medication as discussed. Please follow-up with family doctor in the next 2 days. Please return to emergency room if the symptoms increase or worsen or for any other concerns. Is patient prescribed a controlled substance at d/c from ED?: No Referrals: Maurilio Paniagua MD [Primary Care Provider] - 1-2 days Time of Disposition: 02:23
--- NOTE | 2018-10-09 01:58 | XR ---
EXAM: XR Chest, 1 View CLINICAL HISTORY: trauma, fall down stairs, prior on pacs TECHNIQUE: Frontal view of the chest. COMPARISON: CT chest from 03/12/15. FINDINGS: Lungs: Unremarkable. No consolidation. Pleural space: Unremarkable. No pneumothorax. Heart: Unremarkable. No cardiomegaly. Mediastinum: Unremarkable. Bones/joints: Unremarkable. IMPRESSION: No acute findings
--- NOTE | 2018-10-09 02:01 | XR ---
EXAM: XR Thoracic Spine, 2 Views CLINICAL HISTORY: ITS.REASON XR Reason: fall pain TECHNIQUE: Frontal and lateral views of the thoracic spine. COMPARISON: 04/01/2015 FINDINGS: Vertebrae: Unremarkable. No fracture. Normal alignment. Disc spaces: No acute findings. No significant narrowing. Soft tissues: multiple right upper quadrant surgical clips. IMPRESSION: No fracture or subluxation
--- NOTE | 2018-10-09 02:02 | XR ---
EXAM: XR Pelvis, 1 or 2 Views CLINICAL HISTORY: Pain after fall TECHNIQUE: Frontal view of the pelvis. COMPARISON: CT abdomen and pelvis from 09/30/15 FINDINGS: Bones/joints: Unremarkable. No acute fracture. No dislocation. Soft tissues: Unremarkable. IMPRESSION: Normal pelvis x-ray.
--- NOTE | 2018-10-09 02:20 | CT ---
EXAM: CT Head Without Intravenous Contrast CLINICAL HISTORY: ITS.REASON CT Reason: fall TECHNIQUE: Axial computed tomography images of the head/brain without intravenous contrast. CTDI is 45.2 mGy and DLP is 953.9 mGy-cm. This CT exam was performed using one or more of the following dose reduction techniques: automated exposure control, adjustment of the mA and/or kV according to patient size, and/or use of iterative reconstruction technique. Coronal and sagittal reconstructions are performed COMPARISON: No relevant prior studies available. FINDINGS: Brain: Unremarkable. No hemorrhage. No significant white matter disease. No edema. Ventricles: Unremarkable. No ventriculomegaly. Bones/joints: Unremarkable. No acute fracture. Soft tissues: Small left parietal scalp hematoma Sinuses: Unremarkable as visualized. No acute sinusitis. Mastoid air cells: Unremarkable as visualized. No mastoid effusion. IMPRESSION: No intracranial hemorrhage or skull fracture EXAM: CT Cervical Spine Without Intravenous Contrast CLINICAL HISTORY: ITS.REASON CT Reason: fall TECHNIQUE: Axial computed tomography images of the cervical spine without intravenous contrast. CTDI is 15.2 mGy and DLP is 418.2 mGy-cm. This CT exam was performed using one or more of the following dose reduction techniques: automated exposure control, adjustment of the mA and/or kV according to patient size, and/or use of iterative reconstruction technique. Coronal and sagittal reconstructions are performed COMPARISON: No relevant prior studies available. FINDINGS: Vertebrae: Unremarkable. No acute fracture. Discs/spinal canal/neural foramina: No acute findings. No spinal canal stenosis. Soft tissues: Unremarkable. IMPRESSION: Normal cervical spine CT.
[2018-10-09] MEDS ORDERED: ACETAMINOPHEN TAB 325 MG TAB PO STA (02:22)
[2018-10-09] MEDS ORDERED: CYCLOBENZAPRINE 10MG STARTER 3 TAB BTL PO STA (02:22)
[2018-10-09 02:28] VITALS: BP 129/74; PULSE 77; RESP 18; TEMP 98.7
== END 2018-10-09 02:32 | disposition home or self-care (01) ==
LOC: EC 01:06
DX: S16.1XXA Strain of muscle, fascia and tendon at neck level, initial encounter (principal); S09.90XA Unspecified injury of head, initial encounter; M54.6 Pain in thoracic spine; F31.9 Bipolar disorder, unspecified; F41.9 Anxiety disorder, unspecified; F17.200 Nicotine dependence, unspecified, uncomplicated; Z79.899 Other long term (current) drug therapy; Z88.5 Allergy status to narcotic agent; W10.9XXA Fall (on) (from) unspecified stairs and steps, initial encounter; Y92.099 Unspecified place in other non-institutional residence as the place of occurrence of the external cause
CPT/HCPCS: 70450; 71045; 72072; 72125; 72170; 82075; 99284

== ENCOUNTER 2019-01-31 09:42 | Emergency (ER) | payer OTHER ==
[2019-01-31] MEDS ORDERED: ONDANSETRON 4 MG/2 ML VIAL IVP STA (09:56)
[2019-01-31] MEDS ORDERED: SODIUM CHLORIDE 0.9% 500 ML 500 ML IV STA (09:56)
[2019-01-31] MEDS ORDERED: SODIUM CHLORIDE 0.9% 1,000 ML IV STA (09:56)
[2019-01-31 10:26] LABS: Basophils % (A) 0 %; Eosinophils # (A) 0.2 k/uL (0-0.7); Eosinophils % (A) 1 %; Lymphocytes # (A) 1.1 k/uL (1.0-4.8); Lymphocytes % (A) 8 %; MCHC 34.1 g/dL (31.0-37.0); MCV 88.1 fL (80.0-100.0); Mean Platelet Volume 8.8; Monocytes # (A) 0.7 k/uL (0-1.0); Monocytes % (A) 5 %; Neutrophils # (A) 12.2 k/uL (1.3-7.7); Neutrophils % (A) 85 %; Platelet Count 263 k/uL (150-450); RBC 5.34 m/uL (3.80-5.40); RDW 13.1 % (11.5-15.5); WBC 14.3 k/uL (3.8-10.6)
[2019-01-31 10:36] LABS: Albumin 4.6 g/dL (3.5-5.0); Calcium 9.7 mg/dL (8.4-10.2); Potassium 3.9 mmol/L (3.5-5.1); Total Bilirubin 0.7 mg/dL (0.2-1.3); Total Protein 7.6 g/dL (6.3-8.2)
[2019-01-31 11:25] LABS: Appearance,Urine Cloudy (Clear); Bacteria,Urine Rare /hpf; Bilirubin,Urine Negative (Negative); Blood,Urine Negative (Negative); Calcium Oxalate Crystals,Urine Occasional /hpf; Color,Urine Yellow; Glucose,Urine (UA) Negative (Negative); Ketones,Urine Negative (Negative); Leukocyte Esterase,Urine Large (Negative); Mucus,Urine Many /hpf; Nitrite,Urine Negative (Negative); PH, Urine 5.5 (5.0-8.0); Protein,Urine 1+ (Negative); Specific Gravity,Urine 1.033 (1.001-1.035); Squamous Epithelial Cell,Urine 15 /hpf (0-4); WBC,Urine 89 /hpf (0-5)
[2019-01-31] MEDS ORDERED: METOCLOPRAMIDE 5 MG/ML 2 ML VIAL IVP STA (11:38)
[2019-01-31] MEDS ORDERED: diphenhydrAMINE 50 MG/ML 1 ML VIAL IVP STA (11:38)
--- NOTE | 2019-01-31 11:40 | ED ---
Abdominal Pain HPI - General Chief Complaint: Abdominal Pain Stated Complaint: vomiting Time Seen by Provider: 01/31/19 09:51 Source: patient, RN notes reviewed Mode of arrival: ambulatory Limitations: no limitations - History of Present Illness Initial Comments: 28-year-old female presents emergency Department chief complaint nausea vomiting diarrhea, abdominal pain. Patient states abdominal pain started after vomiting. Patient states her son was sick with similar symptoms a few days ago. Patient reports no fevers or chills no flank pain. Patient denies any chance . Patient offers no complaints. - Related Data Previous Rx's Medication Instructions Recorded Cephalexin [Keflex] 500 mg PO Q8HR #21 cap 01/31/19 Ondansetron Odt [Zofran Odt] 4 mg PO Q8HR PRN #14 tab 01/31/19 Allergies Allergy/AdvReac Type Severity Reaction Status Date / Time codeine AdvReac Swelling Verified 01/31/19 10:37 Review of Systems ROS Statement: Those systems with pertinent positive or pertinent negative responses have been documented in the HPI. ROS Other: All systems not noted in ROS Statement are negative. Past Medical History Past Medical History: Asthma Additional Past Medical History / Comment(s): hypoglycemic History of Any Multi-Drug Resistant Organisms: None Reported Past Surgical History: Adenoidectomy, Section Additional Past Surgical History / Comment(s): left knee, Past Psychological History: Anxiety, Bipolar, Depression Smoking Status: Current every day smoker Past Alcohol Use History: None Reported Past Drug Use History: None Reported, Marijuana General Exam Limitations: no limitations General appearance: alert, in no apparent distress Head exam: Present: atraumatic, normocephalic, normal inspection Eye exam: Present: normal appearance, PERRL, EOMI. Absent: scleral icterus, conjunctival injection, periorbital swelling ENT exam: Present: normal exam, normal oropharynx, mucous membranes moist Neck exam: Present: normal inspection, full ROM. Absent: tenderness, meningismus, lymphadenopathy Respiratory exam: Present: normal lung sounds bilaterally. Absent: respiratory distress, wheezes, rales, rhonchi, stridor Cardiovascular Exam: Present: normal rhythm, tachycardia, normal heart sounds. Absent: systolic murmur, diastolic murmur, rubs, gallop, clicks GI/Abdominal exam: Present: soft, tenderness (Mild diffuse), normal bowel sounds. Absent: distended, guarding, rebound, rigid Course Vital Signs 01/31/19 09:45 Temperature 98.4 F Pulse Rate 115 H Respiratory 18 Rate Blood Pressure 118/83 O2 Sat by Pulse 97 Oximetry Medical Decision Making - Medical Decision Making Patient is improved after antiemetics, was hydrated emergency from. Labs show mild leukocytosis, mild dehydration with evidence of urinary tract infection. Patient was given Rocephin will be discharged on Keflex in Zofran. Return parameters were discussed. - Lab Data Result diagrams: 01/31/19 10:10 01/31/19 10:10 Lab Results 01/31/19 01/31/19 01/31/19 Range/Units 10:10 10:10 10:50 WBC 14.3 H (3.8-10.6) k/uL RBC 5.34 (3.80-5.40) m/uL Hgb 16.0 (11.4-16.0) gm/dL Hct 47.0 H (34.0-46.0) % MCV 88.1 (80.0-100.0) fL MCH 30.0 (25.0-35.0) pg MCHC 34.1 (31.0-37.0) g/dL RDW 13.1 (11.5-15.5) % Plt Count 263 (150-450) k/uL Neutrophils % 85 % Lymphocytes % 8 % Monocytes % 5 % Eosinophils % 1 % Basophils % 0 % Neutrophils # 12.2 H (1.3-7.7) k/uL Lymphocytes # 1.1 (1.0-4.8) k/uL Monocytes # 0.7 (0-1.0) k/uL Eosinophils # 0.2 (0-0.7) k/uL Basophils # 0.0 (0-0.2) k/uL Sodium 140 (137-145) mmol/L Potassium 3.9 (3.5-5.1) mmol/L Chloride 106 (98-107) mmol/L Carbon Dioxide 23 (22-30) mmol/L Anion Gap 11 mmol/L BUN 22 H (7-17) mg/dL Creatinine 1.08 H (0.52-1.04) mg/dL Est GFR (CKD-EPI)AfAm 81 (>60 ml/min/1.73 sqM) Est GFR (CKD-EPI)NonAf 71 (>60 ml/min/1.73 sqM) Glucose 122 H (74-99) mg/dL Calcium 9.7 (8.4-10.2) mg/dL Total Bilirubin 0.7 (0.2-1.3) mg/dL AST 24 (14-36) U/L ALT 29 (9-52) U/L Alkaline Phosphatase 55 (38-126) U/L Total Protein 7.6 (6.3-8.2) g/dL Albumin 4.6 (3.5-5.0) g/dL Amylase 39 (30-110) U/L Lipase 136 (23-300) U/L Urine Color Urine Appearance (Clear) Urine pH (5.0-8.0) Ur Specific [place] (1.001-1.035) Urine Protein (Negative) Urine Glucose (UA) (Negative) Urine Ketones (Negative) Urine Blood (Negative) Urine Nitrite (Negative) Urine Bilirubin (Negative) Urine Urobilinogen (<2.0) mg/dL Ur Leukocyte Esterase (Negative) Urine WBC (0-5) /hpf Ur Squamous Epith Cells (0-4) /hpf Calcium Oxalate Crystal (None) /hpf Urine Bacteria (None) /hpf Urine Mucus (None) /hpf Urine HCG, Qual Not Detected (Not Detectd) 01/31/19 Range/Units 10:50 WBC (3.8-10.6) k/uL RBC (3.80-5.40) m/uL Hgb (11.4-16.0) gm/dL Hct (34.0-46.0) % MCV (80.0-100.0) fL MCH (25.0-35.0) pg MCHC (31.0-37.0) g/dL RDW (11.5-15.5) % Plt Count (150-450) k/uL Neutrophils % % Lymphocytes % % Monocytes % % Eosinophils % % Basophils % % Neutrophils # (1.3-7.7) k/uL Lymphocytes # (1.0-4.8) k/uL Monocytes # (0-1.0) k/uL Eosinophils # (0-0.7) k/uL Basophils # (0-0.2) k/uL Sodium (137-145) mmol/L Potassium (3.5-5.1) mmol/L Chloride (98-107) mmol/L Carbon Dioxide (22-30) mmol/L Anion Gap mmol/L BUN (7-17) mg/dL Creatinine (0.52-1.04) mg/dL Est GFR (CKD-EPI)AfAm (>60 ml/min/1.73 sqM) Est GFR (CKD-EPI)NonAf (>60 ml/min/1.73 sqM) Glucose (74-99) mg/dL Calcium (8.4-10.2) mg/dL Total Bilirubin (0.2-1.3) mg/dL AST (14-36) U/L ALT (9-52) U/L Alkaline Phosphatase (38-126) U/L Total Protein (6.3-8.2) g/dL Albumin (3.5-5.0) g/dL Amylase (30-110) U/L Lipase (23-300) U/L Urine Color Yellow Urine Appearance Cloudy H (Clear) Urine pH 5.5 (5.0-8.0) Ur Specific [place] 1.033 (1.001-1.035) Urine Protein 1+ H (Negative) Urine Glucose (UA) Negative (Negative) Urine Ketones Negative (Negative) Urine Blood Negative (Negative) Urine Nitrite Negative (Negative) Urine Bilirubin Negative (Negative) Urine Urobilinogen 2.0 (<2.0) mg/dL Ur Leukocyte Esterase Large H (Negative) Urine WBC 89 H (0-5) /hpf Ur Squamous Epith Cells 15 H (0-4) /hpf Calcium Oxalate Crystal Occasional H (None) /hpf Urine Bacteria Rare H (None) /hpf Urine Mucus Many H (None) /hpf Urine HCG, Qual (Not Detectd) Disposition Clinical Impression: Gastroenteritis, Urinary tract infection Disposition: HOME SELF-CARE Condition: Stable Instructions (If sedation given, give patient instructions): Urinary Tract Infection in Women (ED), Gastroenteritis (ED) Additional Instructions: Please return to the Emergency Department if symptoms worsen or any other concerns. Prescriptions: Cephalexin [Keflex] 500 mg PO Q8HR #21 cap Ondansetron Odt [Zofran Odt] 4 mg PO Q8HR PRN #14 tab PRN Reason: Nausea Is patient prescribed a controlled substance at d/c from ED?: No Referrals: Maurilio Paniagua MD [Primary Care Provider] - 1-2 days Time of Disposition: 11:40
[2019-01-31 12:24] VITALS: BP 101/68; PULSE 103; RESP 19; TEMP 98
== END 2019-01-31 12:25 | disposition home or self-care (01) ==
LOC: EC 09:42
DX: K52.9 Noninfective gastroenteritis and colitis, unspecified (principal); N39.0 Urinary tract infection, site not specified; E86.0 Dehydration; F17.200 Nicotine dependence, unspecified, uncomplicated; Z88.5 Allergy status to narcotic agent
CPT/HCPCS: 36415; 80053; 82150; 83690; 85025; 81001; 81025; 87086; 99284; 96374; 96375 ×2; 96361; J1200; J2765; J2405

== ENCOUNTER → 2019-02-03 | Outpatient (CLI) | payer OTHER ==
--- NOTE | 2019-02-03 14:43 | CT ---
EXAMINATION TYPE: CT abdomen pelvis w con DATE OF EXAM: 02/03/2019 COMPARISON: 09/30/2015 HISTORY: generalized pain, nausea CT DLP: 903.5 mGycm Automated exposure control for dose reduction was used. CONTRAST: Performed with IV Contrast, patient injected with 100 mL of Isovue 300. Lung bases are clear of consolidation. There is no pleural effusion. Heart size is normal. There is n o pericardial effusion. There is hiatal hernia. There are clips from cholecystectomy. Liver spleen pancreas appear normal. Bile ducts are not dilated . There is no adrenal mass. Kidneys show satisfactory contrast opacification. There is no hydronephrosi s. There is broad-based umbilical hernia that contains fat. Appendix measures 7 mm. There is free flu id in the pelvis. Uterus is anteverted. Bladder distends smoothly. There is no retroperitoneal adenop athy. There is no mesenteric edema. There is no ascites or free air. Lumbar spine is intact. Bony pelvis is intact. There is no evidence of bowel obstruction. IMPRESSION: The appendix is 7 mm and increased in size from 5 mm on the old CT scan. This is somewhat suspicious for appendicitis. No evidence of any surrounding inflammatory reaction however. There is mild free fluid in the pelvis that is a change compared to old exam.
== END | disposition home or self-care (01) ==
LOC: RADCTMAIN 11:35
PROVIDERS: ATTEND Family Medicine
DX: R19.7 Diarrhea, unspecified (principal); R10.9 Unspecified abdominal pain; R11.2 Nausea with vomiting, unspecified
CPT/HCPCS: 74177; Q9967 ×2

== ENCOUNTER 2019-04-08 02:31 | Emergency (ER) | payer OTHER ==
[2019-04-08 02:42] VITALS: TEMP 98
[2019-04-08] MEDS ORDERED: ACETAMINOPHEN TAB 500 MG TAB PO STA (02:55)
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
[2019-04-08 03:28] LABS: Appearance,Urine Cloudy (Clear); Bacteria,Urine Few /hpf; Bilirubin,Urine Negative (Negative); Blood,Urine Negative (Negative); Budding Yeast,Urine Occasional /hpf; Color,Urine Light Yellow; Glucose,Urine (UA) 1+ (Negative); Ketones,Urine Trace (Negative); Leukocyte Esterase,Urine Negative (Negative); Mucus,Urine Occasional /hpf; Nitrite,Urine Negative (Negative); PH, Urine 5.5 (5.0-8.0); Protein,Urine 1+ (Negative); RBC,Urine 8 /hpf (0-5); Specific Gravity,Urine 1.017 (1.001-1.035); Squamous Epithelial Cell,Urine 4 /hpf (0-4); Urobilinogen,Urine <2.0 mg/dL (<2.0); WBC,Urine 62 /hpf (0-5)
[2019-04-08] MEDS ORDERED: cefTRIAXone 1,000 MG VIAL (IM USE) IM STA (03:31)
[2019-04-08] MEDS ORDERED: CEPHALEXIN 500MG STARTER PACK 4 CAP BTL PO STA (03:31)
[2019-04-08 03:54] VITALS: BP 120/82; PULSE 97; RESP 18
== END 2019-04-08 03:55 | disposition home or self-care (01) ==
LOC: EC 02:31
DX: O9A.211 Injury, poisoning and certain other consequences of external causes complicating pregnancy, first trimester (principal); S09.90XA Unspecified injury of head, initial encounter; O23.41 Unspecified infection of urinary tract in pregnancy, first trimester; O99.331 Smoking (tobacco) complicating pregnancy, first trimester; F17.200 Nicotine dependence, unspecified, uncomplicated; Z3A.12 12 weeks gestation of pregnancy; Z88.5 Allergy status to narcotic agent; Y04.0XXA Assault by unarmed brawl or fight, initial encounter
CPT/HCPCS: 81001; 99284; 96372; J0696

== ENCOUNTER 2019-04-17 14:15 | Emergency (ER) | payer OTHER ==
[2019-04-17 14:32] VITALS: BP 96/62; PULSE 80; RESP 20; TEMP 98.3
--- NOTE | 2019-04-17 15:05 | ED ---
General Adult HPI - General Chief complaint: Skin/Abscess/Foreign Body Stated complaint: bite Time Seen by Provider: 04/17/19 14:33 Source: patient, RN notes reviewed, old records reviewed Mode of arrival: ambulatory Limitations: no limitations - History of Present Illness Initial comments: Patient is a 28-year-old female who presents emergency Department today with chief complaint of a wound over the right side of her abdomen. Patient reports she's noticed off and on for the past 2 weeks. She reports it seemed to completely drain on its own. She is currently 14 weeks . She is currently on Keflex for urinary tract infection. She is placed on this antibiotic from the emergency department 2 days ago. Patient states that she noticed increased circumferential area of redness around this today. Patient denies any complaints today. She denies any fevers or chills. Denies any history of resistant skin infections that she is aware of. - Related Data Previous Rx's Medication Instructions Recorded Cephalexin [Keflex] 500 mg PO Q8HR #21 cap 01/31/19 Ondansetron Odt [Zofran Odt] 4 mg PO Q8HR PRN #14 tab 01/31/19 Cephalexin [Keflex] 500 mg PO Q6H #28 cap 04/08/19 Clindamycin [Cleocin] 300 mg PO TID #30 capsule 04/17/19 Allergies Allergy/AdvReac Type Severity Reaction Status Date / Time codeine AdvReac Swelling Verified 04/17/19 14:31 Review of Systems ROS Statement: Those systems with pertinent positive or pertinent negative responses have been documented in the HPI. ROS Other: All systems not noted in ROS Statement are negative. Past Medical History Past Medical History: Asthma Additional Past Medical History / Comment(s): hypoglycemic History of Any Multi-Drug Resistant Organisms: None Reported Past Surgical History: Adenoidectomy, Section Additional Past Surgical History / Comment(s): left knee, Past Psychological History: Anxiety, Bipolar, Depression Smoking Status: Current every day smoker Past Alcohol Use History: None Reported Past Drug Use History: Marijuana General Exam - General Exam Comments Initial Comments: Alert and oriented 8-year-old female. No distress. Limitations: no limitations General appearance: alert, in no apparent distress Head exam: Present: atraumatic, normocephalic, normal inspection Eye exam: Present: normal appearance, PERRL, EOMI. Absent: scleral icterus, conjunctival injection, periorbital swelling ENT exam: Present: normal exam Neck exam: Present: normal inspection. Absent: tenderness, meningismus, lymphadenopathy Respiratory exam: Present: normal lung sounds bilaterally. Absent: respiratory distress, wheezes, rales, rhonchi, stridor Cardiovascular Exam: Present: regular rate, normal rhythm, normal heart sounds. Absent: systolic murmur, diastolic murmur, rubs, gallop, clicks GI/Abdominal exam: Present: soft, normal bowel sounds, other (Patient has a 7 cm x 8 cm area of surrounding erythema over the right flank with a central papule.). Absent: distended, tenderness, guarding, rebound, rigid Extremities exam: Present: normal inspection, full ROM, normal capillary refill. Absent: tenderness, pedal edema, joint swelling, calf tenderness Back exam: Present: normal inspection Neurological exam: Present: alert, oriented X3, CN II-XII intact Psychiatric exam: Present: normal affect, normal mood Skin exam: Present: warm, dry, intact, normal color. Absent: rash Course Vital Signs 04/17/19 14:28 Temperature 98.3 F Pulse Rate 80 Respiratory 20 Rate Blood Pressure 96/62 O2 Sat by Pulse 99 Oximetry Procedures - Incision & Drainage Indication: Right flank Size (cm): 2 I&D Cleaning Method: Alcohol Wipe Sterile Field Used?: Yes Needle Aspiration Performed?: Yes I&D Drainage Obtained: Pus, Blood Culture Obtained?: Yes Patient Tolerated Procedure: well, no complications Medical Decision Making - Medical Decision Making 28-year-old female presents emergency Department today for either of her concern for right leg cellulitis and central papular-like abscess. Patient has had this off and on for the past 2 weeks. This time patient's echo was removed with an 18-gauge needle and rocks only 1 mL of purulent fluid was removed. Wound culture completed. The area is too small to pack with iodoform. Discussed that she's been on Keflex time there is concern for resistant infection. Discussed the urine culture was not completed at this time however with concern for resistant infection will switch the Patient to clindamycin. Patient is agreeable to this plan. Discussed keeping the area clean and dry. QUESTIONS answered return parameters were discussed. Disposition Clinical Impression: Cellulitis, Abscess Disposition: HOME SELF-CARE Condition: Good Instructions (If sedation given, give patient instructions): Cellulitis (ED) Additional Instructions: Patient advised to keep the area clean and dry. Patient also can apply warm compresses over the area to help promote further drainage. Return to the emergency department if any alarming signs or symptoms occur. Prescriptions: Clindamycin [Cleocin] 300 mg PO TID #30 capsule Is patient prescribed a controlled substance at d/c from ED?: No Referrals: Maurilio Paniagua MD [Primary Care Provider] - 1-2 days Time of Disposition: 15:04
== END 2019-04-17 15:12 | disposition home or self-care (01) ==
LOC: EC 14:15
DX: O99.712 Diseases of the skin and subcutaneous tissue complicating pregnancy, second trimester (principal); L03.311 Cellulitis of abdominal wall; L02.211 Cutaneous abscess of abdominal wall; O23.42 Unspecified infection of urinary tract in pregnancy, second trimester; O99.332 Smoking (tobacco) complicating pregnancy, second trimester; F17.200 Nicotine dependence, unspecified, uncomplicated; Z88.5 Allergy status to narcotic agent; Z98.890 Other specified postprocedural states; Z3A.14 14 weeks gestation of pregnancy
CPT/HCPCS: 10160; 87070; 87077; 87186; 87205; 99284

== ENCOUNTER 2019-04-19 09:44 | Emergency (ER) | payer OTHER ==
[2019-04-19 09:52] VITALS: RESP 18
[2019-04-19] MEDS ORDERED: SODIUM CHLORIDE 0.9% 1,000 ML IV STA ×2 (10:07→14:14)
[2019-04-19] MEDS ORDERED: METOCLOPRAMIDE 5 MG/ML 2 ML VIAL IVP STA (10:08)
[2019-04-19] MEDS ORDERED: diphenhydrAMINE 50 MG/ML 1 ML VIAL IVP STA (10:08)
[2019-04-19 10:34] LABS: Basophils % (A) 0 %; Eosinophils # (A) 0.1 k/uL (0-0.7); Eosinophils % (A) 0 %; HCT 40.4 % (34.0-46.0); HGB 13.4 gm/dL (11.4-16.0); Lymphocytes # (A) 1.4 k/uL (1.0-4.8); Lymphocytes % (A) 10 %; MCHC 33.2 g/dL (31.0-37.0); MCV 90.2 fL (80.0-100.0); Mean Platelet Volume 8.8; Monocytes # (A) 0.5 k/uL (0-1.0); Monocytes % (A) 3 %; Neutrophils # (A) 12.9 k/uL (1.3-7.7); Neutrophils % (A) 86 %; Platelet Count 260 k/uL (150-450); RBC 4.48 m/uL (3.80-5.40); RDW 13.8 % (11.5-15.5)
--- NOTE | 2019-04-19 10:37 | ED ---
Abdominal Pain HPI <Mejia So - Last Filed: 04/19/19 12:31> - General Source: patient Mode of arrival: ambulatory Limitations: no limitations <Jonel Thompson - Last Filed: 04/19/19 14:14> - General Chief Complaint: Abdominal Pain Stated Complaint: Vomiting, abd pain Time Seen by Provider: 04/19/19 10:02 - History of Present Illness Initial Comments: Patient a 28-year-old female, , 14 week presenting to emergency Department with chief complaint of with abdominal pain, nausea and vomiting. Stay she woke up this morning with a sudden onset of nausea and multiple episodes of nonbilious, nonbloody vomiting. Also reports a generalized abdominal cramping sensation. Denies any diarrhea or constipation. Denies any fevers or chills. Denies increased urgency frequency or dysuria. Denies any vaginal bleeding or discharge. Denies any itching or foul smell. States she was recently diagnosed with a urinary tract infection and was prescribed Keflex by the OB. Patient has a cholecystectomy previous stay she did have enlarged appendix and her primary care monitoring it. (Jonel Thompson) - Related Data Home Medications Medication Instructions Recorded Confirmed No Known Home Medications 04/19/19 04/19/19 Allergies Allergy/AdvReac Type Severity Reaction Status Date / Time codeine AdvReac Swelling Verified 04/19/19 11:16 Review of Systems ROS Other: All systems not noted in ROS Statement are negative. <JudahMejia - Last Filed: 04/19/19 12:31> ROS Other: All systems not noted in ROS Statement are negative. <Jonel Thompson - Last Filed: 04/19/19 14:14> ROS Statement: Those systems with pertinent positive or pertinent negative responses have been documented in the HPI. Past Medical History Past Medical History: Asthma Additional Past Medical History / Comment(s): hypoglycemic History of Any Multi-Drug Resistant Organisms: MRSA Date of last positivie culture/infection: 04/17/19 MDRO Source:: ABDOMEN Past Surgical History: Adenoidectomy, Section Additional Past Surgical History / Comment(s): left knee, Past Psychological History: Anxiety, Bipolar, Depression Smoking Status: Current every day smoker Past Alcohol Use History: None Reported Past Drug Use History: Marijuana <Jonel Thompson - Last Filed: 04/19/19 14:14> General Exam Limitations: no limitations General appearance: alert, in no apparent distress Head exam: Present: atraumatic, normocephalic, normal inspection Eye exam: Present: normal appearance Pupils: Present: normal accommodation ENT exam: Present: normal exam, normal oropharynx, mucous membranes moist, TM's normal bilaterally, normal external ear exam Neck exam: Present: normal inspection, full ROM Respiratory exam: Present: normal lung sounds bilaterally Cardiovascular Exam: Present: regular rate, normal rhythm, normal heart sounds GI/Abdominal exam: Present: soft, other (14 .). Absent: distended, tenderness Extremities exam: Present: normal inspection, full ROM Back exam: Present: normal inspection, full ROM Neurological exam: Present: alert, oriented X3 Psychiatric exam: Present: normal affect, normal mood Skin exam: Present: warm, dry, intact, normal color <Jonel Thompson - Last Filed: 04/19/19 14:14> Course <Mejia So - Last Filed: 04/19/19 12:31> Vital Signs 04/19/19 04/19/19 09:49 12:53 Temperature 97.9 F Pulse Rate 93 85 Respiratory 18 18 Rate Blood Pressure 108/70 105/62 O2 Sat by Pulse 98 98 Oximetry - Reevaluation(s) Reevaluation #1: 04/19/19 12:31 PA supervision: I proceeded [id number] evaluation the patient to present with complaints of right lower quadrant abdominal pain is currently with an approximately 13 week . She does have clinical evidence as well as ultrasound evidence of appendicitis. The fetus appears to be viable and stable. I did discuss the case with Dr. Edwards who did recommend [facility]. (Mejia So) Medical Decision Making - Lab Data Result diagrams: 04/19/19 10:17 04/19/19 10:17 <Mejia So - Last Filed: 04/19/19 12:31> - Lab Data Result diagrams: 04/19/19 10:17 04/19/19 10:17 <Jonel Thompson - Last Filed: 04/19/19 14:14> - Medical Decision Making Patient is a 28-year-old female presenting to emergency Department with a chief complaint of abdominal pain nausea vomiting. 7 onset of right lower quadrant abdominal pain started earlier today along with nausea and multiple episodes of not bilious, nonbloody vomiting. On exam she does have a positive psoas sign and McBurney point tenderness. Patient was noted to have a dilated appendix of 7 mm based on computed tomography scan and the primary care has a monitoring the situation. Transabdominal ultrasound is indicative of a single intrauterine . Lower quadrant abdominal ultrasound is showing appendicitis based on a 15 mm dilation. Patient does have a white count of 15 K. Patient has stable vitals in the ED. Patient was given Reglan fluids. Patient does report some improvement in symptoms although she still slightly nauseous. case was discussed with Dr. So who contacted Dr. edwards requested a transfer. I spoke with Dr. Leslie Soto from [facility] at 1242. She wanted to speak with the general surgery team from [facility] before except in the patient. I also spoke with Dr. Guerrero from general surgery who will accept the patient. Patient was accepted at 1400. At this time patient will be transferred with IV fluids hanging. Patient did request Pepcid for heartburn. She does take Pepcid home. Patient is nothing by mouth. (Jonel Thompson) - Lab Data Lab Results 04/19/19 04/19/19 04/19/19 Range/Units 10:17 10:17 10:17 WBC 15.0 H (3.8-10.6) k/uL RBC 4.48 (3.80-5.40) m/uL Hgb 13.4 (11.4-16.0) gm/dL Hct 40.4 (34.0-46.0) % MCV 90.2 (80.0-100.0) fL MCH 30.0 (25.0-35.0) pg MCHC 33.2 (31.0-37.0) g/dL RDW 13.8 (11.5-15.5) % Plt Count 260 (150-450) k/uL Neutrophils % 86 % Lymphocytes % 10 % Monocytes % 3 % Eosinophils % 0 % Basophils % 0 % Neutrophils # 12.9 H (1.3-7.7) k/uL Lymphocytes # 1.4 (1.0-4.8) k/uL Monocytes # 0.5 (0-1.0) k/uL Eosinophils # 0.1 (0-0.7) k/uL Basophils # 0.0 (0-0.2) k/uL Sodium 135 L (137-145) mmol/L Potassium 4.3 (3.5-5.1) mmol/L Chloride 107 (98-107) mmol/L Carbon Dioxide 20 L (22-30) mmol/L Anion Gap 8 mmol/L BUN 9 (7-17) mg/dL Creatinine 0.66 (0.52-1.04) mg/dL Est GFR (CKD-EPI)AfAm >90 (>60 ml/min/1.73 sqM) Est GFR (CKD-EPI)NonAf >90 (>60 ml/min/1.73 sqM) Glucose 108 H (74-99) mg/dL Calcium 9.0 (8.4-10.2) mg/dL Total Bilirubin 0.4 (0.2-1.3) mg/dL AST 24 (14-36) U/L ALT 10 (4-34) U/L Alkaline Phosphatase 56 (38-126) U/L Total Protein 6.8 (6.3-8.2) g/dL Albumin 3.8 (3.5-5.0) g/dL HCG, Qual Detected HCG, Quant mIU/mL Urine Color Yellow Urine Appearance Slightly Cloudy H (Clear) Urine pH 6.5 (5.0-8.0) Ur Specific [place] 1.023 (1.001-1.035) Urine Protein Trace H (Negative) Urine Glucose (UA) Negative (Negative) Urine Ketones 1+ H (Negative) Urine Blood Negative (Negative) Urine Nitrite Negative (Negative) Urine Bilirubin Negative (Negative) Urine Urobilinogen <2.0 (<2.0) mg/dL Ur Leukocyte Esterase Large (Negative) Urine WBC 25 H (0-5) /hpf Ur Squamous Epith Cells 15 H (0-4) /hpf Urine Bacteria Moderate H (None) /hpf 04/19/19 Range/Units 10:17 WBC (3.8-10.6) k/uL RBC (3.80-5.40) m/uL Hgb (11.4-16.0) gm/dL Hct (34.0-46.0) % MCV (80.0-100.0) fL MCH (25.0-35.0) pg MCHC (31.0-37.0) g/dL RDW (11.5-15.5) % Plt Count (150-450) k/uL Neutrophils % % Lymphocytes % % Monocytes % % Eosinophils % % Basophils % % Neutrophils # (1.3-7.7) k/uL Lymphocytes # (1.0-4.8) k/uL Monocytes # (0-1.0) k/uL Eosinophils # (0-0.7) k/uL Basophils # (0-0.2) k/uL Sodium (137-145) mmol/L Potassium (3.5-5.1) mmol/L Chloride (98-107) mmol/L Carbon Dioxide (22-30) mmol/L Anion Gap mmol/L BUN (7-17) mg/dL Creatinine (0.52-1.04) mg/dL Est GFR (CKD-EPI)AfAm (>60 ml/min/1.73 sqM) Est GFR (CKD-EPI)NonAf (>60 ml/min/1.73 sqM) Glucose (74-99) mg/dL Calcium (8.4-10.2) mg/dL Total Bilirubin (0.2-1.3) mg/dL AST (14-36) U/L ALT (4-34) U/L Alkaline Phosphatase (38-126) U/L Total Protein (6.3-8.2) g/dL Albumin (3.5-5.0) g/dL HCG, Qual HCG, Quant 62272.8 mIU/mL Urine Color Urine Appearance (Clear) Urine pH (5.0-8.0) Ur Specific [place] (1.001-1.035) Urine Protein (Negative) Urine Glucose (UA) (Negative) Urine Ketones (Negative) Urine Blood (Negative) Urine Nitrite (Negative) Urine Bilirubin (Negative) Urine Urobilinogen (<2.0) mg/dL Ur Leukocyte Esterase (Negative) Urine WBC (0-5) /hpf Ur Squamous Epith Cells (0-4) /hpf Urine Bacteria (None) /hpf Critical Care Time Critical Care Time: Yes Total Critical Care Time: 30 <Jonel Thompson - Last Filed: 04/19/19 14:14> Critical Care Time: Consultation with OB and Gen. surgery from [facility]. Lab work and images mages reviewed. (Jonel Thompson) Disposition <Mejia So - Last Filed: 04/19/19 12:31> Is patient prescribed a controlled substance at d/c from ED?: No Time of Disposition: 14:12 - Out of Hospital Transfer - Req. Specs Out of Hospital Transfer - Requested Specifics: Other Emergency Center ([facility]) <Jonel Thompson - Last Filed: 04/19/19 14:14> Clinical Impression: Acute appendicitis complicating , Nausea & vomiting, Abdominal pain Disposition: OTHER INSTITUTION NOT DEFINED Condition: Stable Instructions (If sedation given, give patient instructions): Acute Abdominal Pain (DC) Additional Instructions: Patient will be transferred via ambulance to [facility]. Referrals: Maurilio Paniagua MD [Primary Care Provider] - 1-2 days
[2019-04-19 10:43] LABS: ALT 10 U/L (4-34); AST 24 U/L (14-36); African American GFR (CKD) >90 (>60 ml/min/1.73 sqM); Albumin 3.8 g/dL (3.5-5.0); Alkaline Phosphatase 56 U/L (38-126); Anion Gap 8 mmol/L; Blood Urea Nitrogen 9 mg/dL (7-17); Carbon Dioxide 20 mmol/L (22-30); Chloride 107 mmol/L (98-107); Glucose 108 mg/dL (74-99); Non-African American GFR(CKD) >90 (>60 ml/min/1.73 sqM); Sodium 135 mmol/L (137-145); Total Bilirubin 0.4 mg/dL (0.2-1.3); Total Protein 6.8 g/dL (6.3-8.2)
[2019-04-19 10:45] LABS: Potassium 4.3 mmol/L (3.5-5.1)
[2019-04-19 10:49] LABS: HCG,Qualitative Serum Detected
--- NOTE | 2019-04-19 11:11 | US ---
EXAMINATION TYPE: Transabdominal DATE OF EXAM: 04/19/2019 10:53 AM COMPARISON: None CLINICAL HISTORY: 14wk preg, abd cramping. Abdominal pain and vomiting today, 3 prior c-sections EXAM PERFORMED: Transabdominal (TA) EXAM MEASUREMENTS: GESTATIONAL AGE / DATING Physician Established: (13 weeks/3 days) EDC: 10/22/19 Dates by LMP: LMP unknown Dates by First Scan: No previous this is first scan Dates by Current Scan for: (13 weeks/6 days) EDC: 10/19/19 MATERNAL ANATOMY Uterus: 13.8 x 9.0 x 9.9cm Right Ovary: 2.5 x 1.4 x 2.5cm Left Ovary: 3.3 x 1.6 x 2.3cm Post CDS / Adnexa: appears wnl Presence of free fluid: no Presence of corpus luteal cyst: yes, hypoechoic area left ovary = 2.2 x 1.6 x 2.0cm GESTATION / SURVEY CRL: 7.7cm (13 weeks/6 days) Yolk Sac (normal less than 6mm): not seen Heart Rate: 132 bpm Rhythm: Normal IUP: Viable IUP Date of LMP: unknown Beta HcG (if available): Not available at this time Single viable IUP 13wks/6days with LEEROY of 10/19/19. Probable corpus luteum left ovary Single live intrauterine gestation is present as gestational sac and pole seen. Yolk sac not cl early identified. No free fluid in pelvic cul-de-sac. Both ovaries seen. There is 2.2 cm oval low dense lesion within left ovary suspicious for corpus lute al cyst. No suspicious extra ovarian adnexal masses noted. IMPRESSION: Single live intrauterine gestation is confirmed, mean crown-rump length is 7.7 cm corresp onding to a 13 week 6 day old fetus.
[2019-04-19 11:32] LABS: Color,Urine Yellow
[2019-04-19 11:33] LABS: Appearance,Urine Slightly Cloudy (Clear); PH, Urine 6.5 (5.0-8.0); Protein,Urine Trace (Negative); Specific Gravity,Urine 1.023 (1.001-1.035)
[2019-04-19 11:34] LABS: Glucose,Urine (UA) Negative (Negative)
[2019-04-19 11:35] LABS: Bilirubin,Urine Negative (Negative); Blood,Urine Negative (Negative); Ketones,Urine 1+ (Negative); Nitrite,Urine Negative (Negative); Urobilinogen,Urine <2.0 mg/dL (<2.0)
[2019-04-19 11:36] LABS: Bacteria,Urine Moderate /hpf; Leukocyte Esterase,Urine Large (Negative); Squamous Epithelial Cell,Urine 15 /hpf (0-4); WBC,Urine 25 /hpf (0-5)
--- NOTE | 2019-04-19 11:44 | US ---
EXAMINATION TYPE: US abdomen APPY DATE OF EXAM: 04/19/2019 COMPARISON: CLINICAL HISTORY: rlq abd pain. Patient is 14 weeks . Vomitting. RLQ pain. No fever. APPENDIX AP Diameter (normal < 6mm): 15.1 mm Measured outer wall to outer wall. Is the appendix seen in its entirety from the proximal cecum to distal end: Tubular structure visual ized in RLQ. Distal portion limited due to "S" shaped curve. Is the appendix compressible: Slightly Does the appendix wall appear hypervascular: no Is an appendicolith present: no Is there inflammatory changes or free fluid present: no Visualized portion of the appendix is prominent. Adjacent inflammatory changes are not identified by ultrasound. The distal portion is not well visualized at this time. IMPRESSION: 1. Findings suggestive for appendicitis based on dilated appendix. Distal portion the appendix is not identified during this examination.
[2019-04-19] MEDS ORDERED: FAMOTIDINE 20 MG/2 ML VIAL IV STA (14:13)
[2019-04-19 14:16] VITALS: BP 100/56; PULSE 86; TEMP 98.2
== END 2019-04-19 15:16 | disposition other institution (70) ==
LOC: EC 09:44
DX: O99.611 Diseases of the digestive system complicating pregnancy, first trimester (principal); K35.80 Unspecified acute appendicitis; O99.331 Smoking (tobacco) complicating pregnancy, first trimester; F17.200 Nicotine dependence, unspecified, uncomplicated; Z3A.13 13 weeks gestation of pregnancy; Z88.5 Allergy status to narcotic agent; Z98.890 Other specified postprocedural states; Z86.14 Personal history of Methicillin resistant Staphylococcus aureus infection
CPT/HCPCS: 99291; 96374; 96375 ×2; 96361 ×2; 36415; 86900; 86901; 80053; 85025; 86850; 81001; 84703; 84702; 87086; 76705; 76801; J1200; J2765

== ENCOUNTER 2020-03-06 07:36 | Emergency (ER) | payer OTHER ==
[2020-03-06 07:42] VITALS: RESP 16
--- NOTE | 2020-03-06 08:02 | ED ---
Abdominal Pain HPI - General Chief Complaint: Abdominal Pain Stated Complaint: Hernia, Abdominal pain Time Seen by Provider: 03/06/20 07:43 Source: patient, RN notes reviewed Mode of arrival: ambulatory Limitations: no limitations - History of Present Illness Initial Comments: This a 29-year-old female presents emergency Department chief complaint of dev eloping a hernia. Patient states she is known about this hernia has seen surgery pushed surgical candidate at this time secondary to recently finding out she is . She has had an ultrasound that confirmed intrauterine . Patient states that she has on-and-off pain in her abdomen. She states that she was given a prescription for a binder but states it was not improved. Patient states that she was told she needed try to reduce it if it pops out. She states she is able to reduce with no problems. Patient offers no other complaints. - Related Data Home Medications Medication Instructions Recorded Confirmed Acetaminophen Tab [Tylenol] 650 mg PO Q4H PRN 03/06/20 03/06/20 Allergies Allergy/AdvReac Type Severity Reaction Status Date / Time codeine AdvReac Swelling Verified 03/06/20 08:28 Review of Systems ROS Statement: Those systems with pertinent positive or pertinent negative responses have been documented in the HPI. ROS Other: All systems not noted in ROS Statement are negative. Past Medical History Past Medical History: Asthma Additional Past Medical History / Comment(s): hypoglycemic History of Any Multi-Drug Resistant Organisms: MRSA Date of last positivie culture/infection: 04/17/19 MDRO Source:: ABDOMEN Past Surgical History: Adenoidectomy, Section Additional Past Surgical History / Comment(s): left knee, Past Psychological History: Anxiety, Bipolar, Depression Smoking Status: Current every day smoker Past Alcohol Use History: None Reported Past Drug Use History: Marijuana General Exam Limitations: no limitations General appearance: alert, in no apparent distress Head exam: Present: atraumatic, normocephalic, normal inspection Eye exam: Present: normal appearance, PERRL, EOMI. Absent: scleral icterus, conjunctival injection, periorbital swelling Respiratory exam: Present: normal lung sounds bilaterally. Absent: respiratory distress, wheezes, rales, rhonchi, stridor Cardiovascular Exam: Present: regular rate, normal rhythm, normal heart sounds. Absent: systolic murmur, diastolic murmur, rubs, gallop, clicks GI/Abdominal exam: Present: soft, normal bowel sounds, hernia. Absent: distended, tenderness, guarding, rebound, rigid Neurological exam: Present: alert, oriented X3 Course Vital Signs 03/06/20 07:40 Temperature 98.7 F Pulse Rate 77 Respiratory 16 Rate Blood Pressure 106/61 O2 Sat by Pulse 99 Oximetry Medical Decision Making - Medical Decision Making Patient does have known umbilical hernia which is reducible and there is no signs of incarceration, strangulation. Urinalysis performed that she is currently so signs of infection. Patient has no other complaints. Patient discharged in stable condition. She is advised take Tylenol, rest, avoid any excessive lifting. Return parameters discussed. - Lab Data Lab Results 03/06/20 Range/Units 08:14 Urine Color Light Yellow Urine Appearance Cloudy H (Clear) Urine pH 6.5 (5.0-8.0) Ur Specific [place] 1.011 (1.001-1.035) Urine Protein Negative (Negative) Urine Glucose (UA) Negative (Negative) Urine Ketones Negative (Negative) Urine Blood Negative (Negative) Urine Nitrite Negative (Negative) Urine Bilirubin Negative (Negative) Urine Urobilinogen <2.0 (<2.0) mg/dL Ur Leukocyte Esterase Negative (Negative) Urine RBC 1 (0-5) /hpf Urine WBC 1 (0-5) /hpf Ur Squamous Epith Cells 6 H (0-4) /hpf Disposition Clinical Impression: Umbilical hernia Disposition: HOME SELF-CARE Condition: Stable Instructions (If sedation given, give patient instructions): Umbilical Hernia (ED) Additional Instructions: Please return to the Emergency Department if symptoms worsen or any other concerns. Is patient prescribed a controlled substance at d/c from ED?: No Referrals: Maurilio Paniagua MD [Primary Care Provider] - 1-2 days Time of Disposition: 08:33
[2020-03-06 08:22] LABS: Appearance,Urine Cloudy (Clear); Bilirubin,Urine Negative (Negative); Blood,Urine Negative (Negative); Color,Urine Light Yellow; Glucose,Urine (UA) Negative (Negative); Ketones,Urine Negative (Negative); Leukocyte Esterase,Urine Negative (Negative); Nitrite,Urine Negative (Negative); PH, Urine 6.5 (5.0-8.0); Protein,Urine Negative (Negative); RBC,Urine 1 /hpf (0-5); Specific Gravity,Urine 1.011 (1.001-1.035); Squamous Epithelial Cell,Urine 6 /hpf (0-4); Urobilinogen,Urine <2.0 mg/dL (<2.0); WBC,Urine 1 /hpf (0-5)
[2020-03-06 08:46] VITALS: BP 106/78; PULSE 68; TEMP 98.2
== END 2020-03-06 08:46 | disposition home or self-care (01) ==
LOC: EC 07:36
DX: O99.611 Diseases of the digestive system complicating pregnancy, first trimester (principal); K42.9 Umbilical hernia without obstruction or gangrene; O99.331 Smoking (tobacco) complicating pregnancy, first trimester; F17.200 Nicotine dependence, unspecified, uncomplicated; Z88.5 Allergy status to narcotic agent; Z3A.08 8 weeks gestation of pregnancy
CPT/HCPCS: 81001; 99284

== ENCOUNTER → 2021-03-27 | Outpatient (CLI) | payer OTHER ==
--- NOTE | 2021-03-27 10:50 | XR ---
EXAMINATION TYPE: XR wrist complete 4 views RT, XR hand complete 3 views RT DATE OF EXAM: 03/27/2021 COMPARISON: NONE HISTORY: 50-year-old female right hand and wrist pain after multiple injuries at work. S60.211A, S60 .221A FINDINGS: Right wrist: The radiocarpal and distal radial ulnar joint as well as the midcarpal compartment appear intact. The re is negative ulnar variance incidentally noted. Subtle tiny 1.5 mm corticated ossicle adjacent to t he ulnar styloid process. No acute fracture, subluxation, dislocation. Right hand: Mild degenerative change first CMC and triscaphe joints. No acute fracture, subluxation, or dislocati on. No periostitis or osteolysis. IMPRESSION: 1. Wrist: Incidental negative ulnar variance. Tiny 1.5 mm corticated density adjacent to the ulnar st yloid process could reflect sequela of remote injury or an accessory ossicle. No acute osseous abnorm ality seen. 2. Hand: Mild degenerative change basal joint of the thumb and triscaphe joint. No acute osseous abno rmality seen.
== END | disposition home or self-care (01) ==
LOC: RADXRMAIN 10:00
PROVIDERS: ATTEND Emergency Medicine
DX: M19.041 Primary osteoarthritis, right hand (principal); S60.211A Contusion of right wrist, initial encounter; S60.221A Contusion of right hand, initial encounter; X58.XXXA Exposure to other specified factors, initial encounter

== ENCOUNTER → 2021-04-06 | Outpatient (CLI) | payer OTHER ==
--- NOTE | 2021-04-06 10:39 | XR ---
EXAMINATION TYPE: XR wrist complete RT, XR hand complete RT DATE OF EXAM: 04/06/2021 CLINICAL HISTORY: Pain after injury. TECHNIQUE: Frontal, lateral and oblique images of the right hand and wrist are obtained. 4 view sca phoid view is performed. COMPARISON: Right wrist and hand x-rays 10 days ago. FINDINGS: There is no acute fracture/dislocation evident in the right wrist. Carpal joint spaces are maintained. Minus ulnar variance redemonstrated. No new callus formation appreciated. The overlying soft tissue appears unremarkable. Images of the right hand show no acute fracture or dislocation. There is incomplete extension of the fingers. Joint spaces are fairly well-maintained. No new suspicious periosteal reaction. Overlying so ft tissue is unremarkable. IMPRESSION: There is no acute or subacute fracture or dislocation in the right hand or wrist. No sig nificant change from prior.
== END | disposition home or self-care (01) ==
LOC: RADXRMAIN 10:03
PROVIDERS: ATTEND Emergency Medicine
DX: M25.531 Pain in right wrist (principal); M79.641 Pain in right hand; S69.91XA Unspecified injury of right wrist, hand and finger(s), initial encounter

== ENCOUNTER 2021-06-11 11:16 | Emergency (ER) | payer OTHER ==
[2021-06-11 11:30] VITALS: RESP 18
[2021-06-11 12:08] LABS: Basophils # (A) 0.1 k/uL (0-0.2); Basophils % (A) 1 %; Eosinophils # (A) 0.1 k/uL (0-0.7); Eosinophils % (A) 1 %; HCT 41.7 % (34.0-46.0); HGB 13.9 gm/dL (11.4-16.0); Lymphocytes # (A) 2.2 k/uL (1.0-4.8); Lymphocytes % (A) 23 %; MCH 27.6 pg (25.0-35.0); MCHC 33.2 g/dL (31.0-37.0); Mean Platelet Volume 10.8; Monocytes # (A) 0.3 k/uL (0-1.0); Monocytes % (A) 3 %; Neutrophils # (A) 6.8 k/uL (1.3-7.7); Neutrophils % (A) 71 %; Platelet Count 264 k/uL (150-450); RBC 5.03 m/uL (3.80-5.40); RDW 15.7 % (11.5-15.5); WBC 9.6 k/uL (3.8-10.6)
[2021-06-11 12:12] LABS: Appearance,Urine Clear (Clear); Bilirubin,Urine Negative (Negative); Blood,Urine Negative (Negative); Color,Urine Light Yellow; Glucose,Urine (UA) 4+ (Negative); Ketones,Urine 1+ (Negative); Leukocyte Esterase,Urine Negative (Negative); Nitrite,Urine Negative (Negative); PH, Urine 5.5 (5.0-8.0); Protein,Urine Negative (Negative); Specific Gravity,Urine 1.033 (1.001-1.035); Urobilinogen,Urine <2.0 mg/dL (<2.0)
[2021-06-11 12:18] LABS: ALT 32 U/L (4-34); AST 36 U/L (14-36); African American GFR (CKD) >90 (>60 ml/min/1.73 sqM); Albumin 4.1 g/dL (3.5-5.0); Alkaline Phosphatase 108 U/L (38-126); Anion Gap 13 mmol/L; Blood Urea Nitrogen 13 mg/dL (7-17); Calcium 9.1 mg/dL (8.4-10.2); Carbon Dioxide 20 mmol/L (22-30); Chloride 97 mmol/L (98-107); Non-African American GFR(CKD) >90 (>60 ml/min/1.73 sqM); Potassium 4.6 mmol/L (3.5-5.1); Sodium 130 mmol/L (137-145); Total Bilirubin 0.7 mg/dL (0.2-1.3); Total Protein 7.3 g/dL (6.3-8.2)
[2021-06-11 12:22] LABS: INR 0.9 (<1.2); Partial Thromboplastin Time 22.7 sec (22.0-30.0); Prothrombin Time 9.7 sec (9.0-12.0)
[2021-06-11 12:27] LABS: Glucose 603 mg/dL (74-99)
[2021-06-11] MEDS ORDERED: INSULIN REGULAR 100 UNIT/ML VIAL (IV) IV ONE ×2 (12:34→14:02)
[2021-06-11] MEDS ORDERED: ONDANSETRON 4 MG/2 ML VIAL IVP STA (12:35)
[2021-06-11] MEDS ORDERED: SODIUM CHLORIDE 0.9% 1,000 ML IV STA (12:35)
--- NOTE | 2021-06-11 13:05 | CT ---
EXAMINATION TYPE: CT brain wo con DATE OF EXAM: 06/11/2021 COMPARISON: CT dated 10/09/2018 HISTORY: dizziness, visual changes CT DLP: 1066.4 mGycm Automated exposure control for dose reduction was used. TECHNIQUE: CT scan of the brain is performed without IV contrast administration. FINDINGS: Unremarkable morphology of the cerebral hemispheres, cerebellum and brainstem. No acute intracranial hemorrhage. No gross acute cortical infarct. No midline shift, herniation or ventriculomegaly. Unremarkable mariano-white matter differentiation, basal cisterns, sella and CP angles. No gross space-o ccupying lesion, vasogenic edema or mass effect. Unremarkable orbits. Mucosal thickening of the right sphenoid sinus compartment. Clear mastoid air ce lls. Unremarkable calvarial bones. IMPRESSION: No acute intracranial abnormality or gross space-occupying lesion by this nonenhanced CT scan. Mucosa l thickening of the right sphenoid sinus compartment.
[2021-06-11 13:53] LABS: Glucose,Whole Blood 396 mg/dL (75-99)
--- NOTE | 2021-06-11 14:31 | ED ---
Eye Problem HPI - General Chief complaint: Neuro Symptoms/Deficit Stated complaint: blurred vision, nausea Time Seen by Provider: 06/11/21 11:32 Source: patient, RN notes reviewed Mode of arrival: ambulatory Limitations: no limitations - History of Present Illness Initial comments: This is a 31-year-old female presents to the emergency department for 1 week of visual changes. For the last week, she has had blurry vision, denies any associated eye pain. 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 She do not find any irregularities in her eyes herself, but was concerned that this may be related to hypertension or diabetes. Patient states that she had gestational diabetes mellitus, but has never been reevaluated to see if she continued to have diabetes after her . She has had some nausea with the blurry vision. Denies any chest pain or shortness of breath. MD chief complaint: vision change Onset/Timin -: week(s) - Related Data Home Medications Medication Instructions Recorded Confirmed Norethindrone [Shaye] 0.35 mg PO HS 06/11/21 06/11/21 Allergies Allergy/AdvReac Type Severity Reaction Status Date / Time codeine Allergy Anaphylaxis Verified 06/11/21 12:48 Review of Systems ROS Statement: Those systems with pertinent positive or pertinent negative responses have been documented in the HPI. ROS Other: All systems not noted in ROS Statement are negative. Constitutional: Denies: fever, chills Eyes: Reports: other (blurry vision). Denies: eye pain ENT: Denies: ear pain, throat pain Respiratory: Denies: cough, dyspnea Cardiovascular: Denies: chest pain, palpitations Gastrointestinal: Reports: nausea. Denies: abdominal pain, vomiting, diarrhea Genitourinary: Denies: urgency, dysuria Musculoskeletal: Denies: back pain Skin: Denies: rash Neurological: Denies: headache Past Medical History Past Medical History: Asthma Additional Past Medical History / Comment(s): hypoglycemic History of Any Multi-Drug Resistant Organisms: MRSA Date of last positivie culture/infection: 04/17/19 MDRO Source:: ABDOMEN Past Surgical History: Adenoidectomy, Section Additional Past Surgical History / Comment(s): left knee, Past Psychological History: Anxiety, Bipolar, Depression Smoking Status: Former smoker Past Alcohol Use History: None Reported Past Drug Use History: Marijuana General Exam Limitations: no limitations General appearance: alert, in no apparent distress Course Vital Signs 06/11/21 06/11/21 06/11/21 11:27 11:54 15:05 Temperature 98.5 F Pulse Rate 82 77 64 Respiratory 18 18 18 Rate Blood Pressure 113/80 110/70 97/64 O2 Sat by Pulse 96 94 L 97 Oximetry Medical Decision Making - Medical Decision Making This is a 31-year-old female who presents to the emergency department with blurry vision. Initial lab work obtained revealed a glucose of 603. This is consistent with a new onset type 2 diabetes. Patient was given 10 units IV of regular insulin. Repeat glucose was 96. She was given an additional 5 units and glucose was 288. She was also hydrated with a liter of normal saline. Because she did have new onset blurry vision, we did obtain a CT of the brain without contrast. This revealed no acute abnormalities. Discussed with the patient that she does appear to have new onset type 2 diabetes. While we did control her glucose in the emergency department, this will increase again. She is advised to contact her primary care office for an appointment in the next 1-2 days to begin treatment for diabetes. Strongly encouraged healthy dietary habits with the reduction of sugars and carbohydrates and getting plenty of exercise. Return precautions reviewed in depth, the patient is instructed to return to the emergency department with any new, worsening, or concerning symptoms. Patient verbalized understanding. This case was discussed in detail with the attending ED physician. Presentation, findings, and treatment plan discussed in detail as well. - Lab Data Result diagrams: 06/11/21 11:52 06/11/21 11:52 Lab Results 06/11/21 06/11/21 06/11/21 Range/Units 11:52 11:52 11:52 WBC 9.6 (3.8-10.6) k/uL RBC 5.03 (3.80-5.40) m/uL Hgb 13.9 (11.4-16.0) gm/dL Hct 41.7 (34.0-46.0) % MCV 83.0 (80.0-100.0) fL MCH 27.6 (25.0-35.0) pg MCHC 33.2 (31.0-37.0) g/dL RDW 15.7 H (11.5-15.5) % Plt Count 264 (150-450) k/uL MPV 10.8 Neutrophils % 71 % Lymphocytes % 23 % Monocytes % 3 % Eosinophils % 1 % Basophils % 1 % Neutrophils # 6.8 (1.3-7.7) k/uL Lymphocytes # 2.2 (1.0-4.8) k/uL Monocytes # 0.3 (0-1.0) k/uL Eosinophils # 0.1 (0-0.7) k/uL Basophils # 0.1 (0-0.2) k/uL PT 9.7 (9.0-12.0) sec INR 0.9 (<1.2) APTT 22.7 (22.0-30.0) sec Sodium (137-145) mmol/L Potassium (3.5-5.1) mmol/L Chloride (98-107) mmol/L Carbon Dioxide (22-30) mmol/L Anion Gap mmol/L BUN (7-17) mg/dL Creatinine (0.52-1.04) mg/dL Est GFR (CKD-EPI)AfAm (>60 ml/min/1.73 sqM) Est GFR (CKD-EPI)NonAf (>60 ml/min/1.73 sqM) Glucose (74-99) mg/dL POC Glucose (mg/dL) (75-99) mg/dL POC Glu Seismograph Shooter ID Calcium (8.4-10.2) mg/dL Total Bilirubin (0.2-1.3) mg/dL AST (14-36) U/L ALT (4-34) U/L Alkaline Phosphatase (38-126) U/L Troponin I (0.000-0.034) ng/mL Total Protein (6.3-8.2) g/dL Albumin (3.5-5.0) g/dL Urine Color Light Yellow Urine Appearance Clear (Clear) Urine pH 5.5 (5.0-8.0) Ur Specific [place] 1.033 (1.001-1.035) Urine Protein Negative (Negative) Urine Glucose (UA) 4+ H (Negative) Urine Ketones 1+ H (Negative) Urine Blood Negative (Negative) Urine Nitrite Negative (Negative) Urine Bilirubin Negative (Negative) Urine Urobilinogen <2.0 (<2.0) mg/dL Ur Leukocyte Esterase Negative (Negative) Urine HCG, Qual (Not Detectd) 06/11/21 06/11/21 06/11/21 Range/Units 11:52 11:52 11:52 WBC (3.8-10.6) k/uL RBC (3.80-5.40) m/uL Hgb (11.4-16.0) gm/dL Hct (34.0-46.0) % MCV (80.0-100.0) fL MCH (25.0-35.0) pg MCHC (31.0-37.0) g/dL RDW (11.5-15.5) % Plt Count (150-450) k/uL MPV Neutrophils % % Lymphocytes % % Monocytes % % Eosinophils % % Basophils % % Neutrophils # (1.3-7.7) k/uL Lymphocytes # (1.0-4.8) k/uL Monocytes # (0-1.0) k/uL Eosinophils # (0-0.7) k/uL Basophils # (0-0.2) k/uL PT (9.0-12.0) sec INR (<1.2) APTT (22.0-30.0) sec Sodium 130 L (137-145) mmol/L Potassium 4.6 (3.5-5.1) mmol/L Chloride 97 L (98-107) mmol/L Carbon Dioxide 20 L (22-30) mmol/L Anion Gap 13 mmol/L BUN 13 (7-17) mg/dL Creatinine 0.77 (0.52-1.04) mg/dL Est GFR (CKD-EPI)AfAm >90 (>60 ml/min/1.73 sqM) Est GFR (CKD-EPI)NonAf >90 (>60 ml/min/1.73 sqM) Glucose 603 H* (74-99) mg/dL POC Glucose (mg/dL) (75-99) mg/dL POC Glu Seismograph Shooter ID Calcium 9.1 (8.4-10.2) mg/dL Total Bilirubin 0.7 (0.2-1.3) mg/dL AST 36 (14-36) U/L ALT 32 (4-34) U/L Alkaline Phosphatase 108 (38-126) U/L Troponin I <0.012 (0.000-0.034) ng/mL Total Protein 7.3 (6.3-8.2) g/dL Albumin 4.1 (3.5-5.0) g/dL Urine Color Urine Appearance (Clear) Urine pH (5.0-8.0) Ur Specific [place] (1.001-1.035) Urine Protein (Negative) Urine Glucose (UA) (Negative) Urine Ketones (Negative) Urine Blood (Negative) Urine Nitrite (Negative) Urine Bilirubin (Negative) Urine Urobilinogen (<2.0) mg/dL Ur Leukocyte Esterase (Negative) Urine HCG, Qual Not Detected (Not Detectd) 06/11/21 06/11/21 Range/Units 13:51 15:04 WBC (3.8-10.6) k/uL RBC (3.80-5.40) m/uL Hgb (11.4-16.0) gm/dL Hct (34.0-46.0) % MCV (80.0-100.0) fL MCH (25.0-35.0) pg MCHC (31.0-37.0) g/dL RDW (11.5-15.5) % Plt Count (150-450) k/uL MPV Neutrophils % % Lymphocytes % % Monocytes % % Eosinophils % % Basophils % % Neutrophils # (1.3-7.7) k/uL Lymphocytes # (1.0-4.8) k/uL Monocytes # (0-1.0) k/uL Eosinophils # (0-0.7) k/uL Basophils # (0-0.2) k/uL PT (9.0-12.0) sec INR (<1.2) APTT (22.0-30.0) sec Sodium (137-145) mmol/L Potassium (3.5-5.1) mmol/L Chloride (98-107) mmol/L Carbon Dioxide (22-30) mmol/L Anion Gap mmol/L BUN (7-17) mg/dL Creatinine (0.52-1.04) mg/dL Est GFR (CKD-EPI)AfAm (>60 ml/min/1.73 sqM) Est GFR (CKD-EPI)NonAf (>60 ml/min/1.73 sqM) Glucose (74-99) mg/dL POC Glucose (mg/dL) 396 H 288 H (75-99) mg/dL POC Glu Seismograph Shooter ID [place]in [place] Calcium (8.4-10.2) mg/dL Total Bilirubin (0.2-1.3) mg/dL AST (14-36) U/L ALT (4-34) U/L Alkaline Phosphatase (38-126) U/L Troponin I (0.000-0.034) ng/mL Total Protein (6.3-8.2) g/dL Albumin (3.5-5.0) g/dL Urine Color Urine Appearance (Clear) Urine pH (5.0-8.0) Ur Specific [place] (1.001-1.035) Urine Protein (Negative) Urine Glucose (UA) (Negative) Urine Ketones (Negative) Urine Blood (Negative) Urine Nitrite (Negative) Urine Bilirubin (Negative) Urine Urobilinogen (<2.0) mg/dL Ur Leukocyte Esterase (Negative) Urine HCG, Qual (Not Detectd) - EKG Data EKG shows normal: sinus rhythm EKG Comments: Sinus rhythm. Ventricular rate 76 bpm, MI interval 183 ms, QRS duration 108 ms, QTC 420 ms. - Radiology Data Radiology results: report reviewed, image reviewed Disposition Clinical Impression: Diabetes mellitus type 2, uncontrolled Disposition: HOME SELF-CARE Instructions (If sedation given, give patient instructions): Diabetes and Exercise (ED) Additional Instructions: Return to the emergency department with any new, worsening, or concerning symptoms. Follow-up with your primary care provider in 1 to 2 days. Is patient prescribed a controlled substance at d/c from ED?: No Referrals: Maurilio Paniagua MD [Primary Care Provider] - 1-2 days
[2021-06-11 15:06] LABS: Glucose,Whole Blood 288 mg/dL (75-99)
[2021-06-11 15:48] VITALS: BP 96/63; PULSE 70; TEMP 97.3
== END 2021-06-11 15:48 | disposition home or self-care (01) ==
LOC: EC 11:16
DX: E11.65 Type 2 diabetes mellitus with hyperglycemia (principal); Z87.891 Personal history of nicotine dependence
CPT/HCPCS: 36415; 93005; 80053; 84484; 85025; 85610; 85730; 81003; 81025; 83036; 70450; 99284; 96374; 96375; 96376; 96361; J2405

== ENCOUNTER 2021-06-16 22:25 | Emergency (ER) | payer OTHER ==
[2021-06-17 00:26] VITALS: RESP 16
[2021-06-17 00:27] LABS: Glucose,Whole Blood 466 mg/dL (75-99)
[2021-06-17 02:40] LABS: ALT 54 U/L (4-34); AST 46 U/L (14-36); African American GFR (CKD) >90 (>60 ml/min/1.73 sqM); Albumin 4.1 g/dL (3.5-5.0); Alkaline Phosphatase 74 U/L (38-126); Anion Gap 13 mmol/L; Blood Urea Nitrogen 13 mg/dL (7-17); Calcium 9.3 mg/dL (8.4-10.2); Carbon Dioxide 20 mmol/L (22-30); Chloride 98 mmol/L (98-107); Non-African American GFR(CKD) >90 (>60 ml/min/1.73 sqM); Sodium 131 mmol/L (137-145); Total Bilirubin 0.8 mg/dL (0.2-1.3)
[2021-06-17 02:55] LABS: Glucose 543 mg/dL (74-99)
[2021-06-17 02:59] LABS: Potassium 4.5 mmol/L (3.5-5.1)
[2021-06-17] MEDS ORDERED: SODIUM CHLORIDE 0.9% 1,000 ML IV ONE ×2 (04:10→06:20)
[2021-06-17 04:12] LABS: Basophils # (A) 0.1 k/uL (0-0.2); Basophils % (A) 1 %; Eosinophils # (A) 0.2 k/uL (0-0.7); Eosinophils % (A) 2 %; HCT 43.3 % (34.0-46.0); HGB 13.9 gm/dL (11.4-16.0); Lymphocytes # (A) 2.6 k/uL (1.0-4.8); Lymphocytes % (A) 27 %; MCH 27.5 pg (25.0-35.0); Mean Platelet Volume 12.7; Monocytes # (A) 0.5 k/uL (0-1.0); Monocytes % (A) 5 %; Neutrophils # (A) 6.3 k/uL (1.3-7.7); Neutrophils % (A) 65 %; Platelet Count 242 k/uL (150-450); RBC 5.04 m/uL (3.80-5.40); RDW 15.8 % (11.5-15.5); WBC 9.8 k/uL (3.8-10.6)
[2021-06-17] MEDS ORDERED: INSULIN REGULAR 100 UNIT/ML VIAL (IM/SQ) SQ ONE (04:36)
[2021-06-17 04:38] LABS: Large Platelets Present
[2021-06-17 05:01] LABS: Appearance,Urine Clear (Clear); Bilirubin,Urine Negative (Negative); Blood,Urine Negative (Negative); Color,Urine Light Yellow; Glucose,Urine (UA) 4+ (Negative); Ketones,Urine Negative (Negative); Leukocyte Esterase,Urine Negative (Negative); Nitrite,Urine Negative (Negative); Protein,Urine Negative (Negative); Specific Gravity,Urine 1.036 (1.001-1.035); Urobilinogen,Urine <2.0 mg/dL (<2.0)
--- NOTE | 2021-06-17 05:09 | ED ---
Recheck HPI - General Chief Complaint: Recheck/Abnormal Lab/Rx Stated Complaint: High Blood Sugar, Blurry vision, Source: patient Mode of arrival: ambulatory Limitations: no limitations - History of Present Illness Initial Comments: Patient is a 31-year-old female who is diagnosed with type 2 diabetes earlier this month, she was started on metformin 500 mg twice a day as well as 20 units of long-acting insulin daily. She is yet to receive a home glucometer so she cannot check her sugars. Patient reports she continues to feel unwell somewhat lightheaded and occasionally have blurred vision. She checked her glucose with someone else's glucometer and noted that her sugar was high so she came to the ER for reevaluation. - Related Data Home Medications Medication Instructions Recorded Confirmed Norethindrone [Shaye] 0.35 mg PO HS 06/11/21 06/11/21 Allergies Allergy/AdvReac Type Severity Reaction Status Date / Time codeine Allergy Anaphylaxis Verified 06/17/21 00:20 Review of Systems ROS Statement: Those systems with pertinent positive or pertinent negative responses have been documented in the HPI. ROS Other: All systems not noted in ROS Statement are negative. Past Medical History Past Medical History: Asthma, Diabetes Mellitus Additional Past Medical History / Comment(s): hypoglycemic History of Any Multi-Drug Resistant Organisms: MRSA Date of last positivie culture/infection: 04/17/19 MDRO Source:: ABDOMEN Past Surgical History: Adenoidectomy, Section Additional Past Surgical History / Comment(s): left knee, Past Psychological History: Anxiety, Bipolar, Depression Smoking Status: Former smoker Past Alcohol Use History: None Reported Past Drug Use History: Marijuana General Exam - General Exam Comments Initial Comments: Physical Exam GENERAL: Patient is well-developed and well-nourished. Patient is nontoxic and well-hydrated and is in no distress. HENT: Normocephalic, Atraumatic. EYES: PERRL, EOMI PULMONARY: Unlabored respirations. CARDIOVASCULAR: RRR Warm and well perfused extremities ABDOMEN: Non-distended SKIN: No rashes or bruising : Deferred NEUROLOGIC: Alert and oriented Normal speech Normal gait MUSCULOSKELETAL: Moving all extremities with no apparent injury PSYCHIATRIC: No SI/HI Limitations: no limitations Course Vital Signs 06/17/21 06/17/21 06/17/21 00:20 02:20 07:19 Temperature 98 F 97.7 F 98 F Pulse Rate 82 69 71 Respiratory 16 16 16 Rate Blood Pressure 109/75 104/72 118/68 O2 Sat by Pulse 98 97 96 Oximetry Medical Decision Making - Medical Decision Making The patient was seen and evaluated, history was obtained from the patient, patient is hyperglycemic, pseudohyponatremia as noted, IV fluids and insulin were given Patient received 2 L IV fluid, IM and IV insulin, glucose improved significantly. At this time she is stable for discharge home to resume her home medications, she will follow with her primary care physician was also provided information for new primary care should she want to establish care with a new provider. - Lab Data Result diagrams: 06/17/21 03:41 06/17/21 02:19 Lab Results 06/17/21 06/17/21 06/17/21 Range/Units 00:26 02:19 03:41 WBC 9.8 (3.8-10.6) k/uL RBC 5.04 (3.80-5.40) m/uL Hgb 13.9 (11.4-16.0) gm/dL Hct 43.3 (34.0-46.0) % MCV 86.0 (80.0-100.0) fL MCH 27.5 (25.0-35.0) pg MCHC 32.0 (31.0-37.0) g/dL RDW 15.8 H (11.5-15.5) % Plt Count 242 (150-450) k/uL MPV 12.7 Neutrophils % 65 % Lymphocytes % 27 % Monocytes % 5 % Eosinophils % 2 % Basophils % 1 % Neutrophils # 6.3 (1.3-7.7) k/uL Lymphocytes # 2.6 (1.0-4.8) k/uL Monocytes # 0.5 (0-1.0) k/uL Eosinophils # 0.2 (0-0.7) k/uL Basophils # 0.1 (0-0.2) k/uL Manual Slide Review Performed Large Platelets Present Sodium 131 L (137-145) mmol/L Potassium 4.5 (3.5-5.1) mmol/L Chloride 98 (98-107) mmol/L Carbon Dioxide 20 L (22-30) mmol/L Anion Gap 13 mmol/L BUN 13 (7-17) mg/dL Creatinine 0.70 (0.52-1.04) mg/dL Est GFR (CKD-EPI)AfAm >90 (>60 ml/min/1.73 sqM) Est GFR (CKD-EPI)NonAf >90 (>60 ml/min/1.73 sqM) Glucose 543 H* (74-99) mg/dL POC Glucose (mg/dL) 466 H (75-99) mg/dL POC Glu Rn Informatics ID Kelsea [place] Calcium 9.3 (8.4-10.2) mg/dL Total Bilirubin 0.8 (0.2-1.3) mg/dL AST 46 H (14-36) U/L ALT 54 H (4-34) U/L Alkaline Phosphatase 74 (38-126) U/L Total Protein 7.0 (6.3-8.2) g/dL Albumin 4.1 (3.5-5.0) g/dL Urine Color Urine Appearance (Clear) Urine pH (5.0-8.0) Ur Specific [place] (1.001-1.035) Urine Protein (Negative) Urine Glucose (UA) (Negative) Urine Ketones (Negative) Urine Blood (Negative) Urine Nitrite (Negative) Urine Bilirubin (Negative) Urine Urobilinogen (<2.0) mg/dL Ur Leukocyte Esterase (Negative) 06/17/21 06/17/21 06/17/21 Range/Units 04:45 06:09 07:37 WBC (3.8-10.6) k/uL RBC (3.80-5.40) m/uL Hgb (11.4-16.0) gm/dL Hct (34.0-46.0) % MCV (80.0-100.0) fL MCH (25.0-35.0) pg MCHC (31.0-37.0) g/dL RDW (11.5-15.5) % Plt Count (150-450) k/uL MPV Neutrophils % % Lymphocytes % % Monocytes % % Eosinophils % % Basophils % % Neutrophils # (1.3-7.7) k/uL Lymphocytes # (1.0-4.8) k/uL Monocytes # (0-1.0) k/uL Eosinophils # (0-0.7) k/uL Basophils # (0-0.2) k/uL Manual Slide Review Large Platelets Sodium (137-145) mmol/L Potassium (3.5-5.1) mmol/L Chloride (98-107) mmol/L Carbon Dioxide (22-30) mmol/L Anion Gap mmol/L BUN (7-17) mg/dL Creatinine (0.52-1.04) mg/dL Est GFR (CKD-EPI)AfAm (>60 ml/min/1.73 sqM) Est GFR (CKD-EPI)NonAf (>60 ml/min/1.73 sqM) Glucose (74-99) mg/dL POC Glucose (mg/dL) 409 H 211 H (75-99) mg/dL POC Glu Rn Informatics ID Kailyn Beaulieu Benjamin Calcium (8.4-10.2) mg/dL Total Bilirubin (0.2-1.3) mg/dL AST (14-36) U/L ALT (4-34) U/L Alkaline Phosphatase (38-126) U/L Total Protein (6.3-8.2) g/dL Albumin (3.5-5.0) g/dL Urine Color Light Yellow Urine Appearance Clear (Clear) Urine pH 5.0 (5.0-8.0) Ur Specific [place] 1.036 H (1.001-1.035) Urine Protein Negative (Negative) Urine Glucose (UA) 4+ H (Negative) Urine Ketones Negative (Negative) Urine Blood Negative (Negative) Urine Nitrite Negative (Negative) Urine Bilirubin Negative (Negative) Urine Urobilinogen <2.0 (<2.0) mg/dL Ur Leukocyte Esterase Negative (Negative) Disposition Clinical Impression: Hyperglycemia due to type 2 diabetes mellitus Disposition: HOME SELF-CARE Condition: Stable Instructions (If sedation given, give patient instructions): Type 2 Diabetes in Adults: New Diagnosis (DC) Additional Instructions: Follow with primary care provider, follow up to get dietary guidance and a glucometer Is patient prescribed a controlled substance at d/c from ED?: No Referrals: Maurilio Paniagua MD [Primary Care Provider] - 1-2 days
[2021-06-17 06:11] LABS: Glucose,Whole Blood 409 mg/dL (75-99)
[2021-06-17] MEDS ORDERED: INSULIN REGULAR 100 UNIT/ML VIAL (IV) IV ONE (06:16)
[2021-06-17 07:20] VITALS: BP 118/68; PULSE 71; TEMP 98
[2021-06-17 07:39] LABS: Glucose,Whole Blood 211 mg/dL (75-99)
== END 2021-06-17 08:20 | disposition home or self-care (01) ==
LOC: EC 22:25
DX: E11.65 Type 2 diabetes mellitus with hyperglycemia (principal); J45.909 Unspecified asthma, uncomplicated; E11.9 Type 2 diabetes mellitus without complications; Z87.891 Personal history of nicotine dependence; Z88.5 Allergy status to narcotic agent
CPT/HCPCS: 36415; 80053; 81003; 83036; 85025

== ENCOUNTER 2021-12-25 21:37 | Emergency (ER) | payer OTHER ==
[2021-12-25] MEDS ORDERED: SODIUM CHLORIDE 0.9% 1,000 ML IV STA (21:58)
[2021-12-25 21:59] LABS: Glucose,Whole Blood 494 mg/dL (70-110)
--- NOTE | 2021-12-25 22:04 | ED ---
General Adult HPI <Micheal Jackson - Last Filed: 12/26/21 00:24> - General Source: patient, family, RN notes reviewed, old records reviewed Mode of arrival: ambulatory Limitations: no limitations - History of Present Illness -: days(s) (2) Location: mouth (sore throat) Radiation: non-radiation Severity scale (1-10): 6 Quality: aching (body aches, sore throat) Consistency: constant Associated Symptoms: nausea/vomiting, other (Elevated blood glucose) <Gallo Brewster - Last Filed: 12/28/21 06:38> - General Chief complaint: Recheck/Abnormal Lab/Rx Stated complaint: Hyperglycemia Time Seen by Provider: 12/25/21 21:54 - History of Present Illness Initial comments: 31-year-old female presents to the emergency room ambulatory with complaints of body aches, sore throat, elevated blood glucose levels and nausea vomiting for 2 days. She has been on Farxiga for the past 2 months. Did try to contact her primary care doctor two days ago regarding elevated blood glucose levels and unable to get an appointment so they recommended she come to the emergency room. She states she did not have a ride so she is here today for evaluation. She denies any abdominal pain , one episode of vomiting. Denies fevers. Has not be en vaccinated against coronavirus or influenza. Is a nonsmoker. (Gallo Brewster) - Related Data Home Medications Medication Instructions Recorded Confirmed Norethindrone [Shaye] 0.35 mg PO HS 06/11/21 06/11/21 Allergies Allergy/AdvReac Type Severity Reaction Status Date / Time codeine Allergy Anaphylaxis Verified 12/25/21 21:47 Review of Systems ROS Other: All systems not noted in ROS Statement are negative. <Micheal Jackson - Last Filed: 12/26/21 00:24> ROS Other: All systems not noted in ROS Statement are negative. <Gallo Brewster - Last Filed: 12/28/21 06:38> ROS Statement: Those systems with pertinent positive or pertinent negative responses have been documented in the HPI. Past Medical History Past Medical History: Asthma, Diabetes Mellitus Additional Past Medical History / Comment(s): hypoglycemic History of Any Multi-Drug Resistant Organisms: MRSA Date of last positivie culture/infection: 04/17/19 MDRO Source:: ABDOMEN Past Surgical History: Adenoidectomy, Section Additional Past Surgical History / Comment(s): left knee, Past Psychological History: Anxiety, Bipolar, Depression Smoking Status: Current every day smoker Past Alcohol Use History: None Reported Past Drug Use History: Marijuana <Gallo Brewster - Last Filed: 12/28/21 06:38> General Exam Limitations: no limitations General appearance: alert, in no apparent distress Head exam: Present: atraumatic Eye exam: Absent: scleral icterus, conjunctival injection, periorbital swelling ENT exam: Present: mucous membranes moist Expanded Mouth exam: Present: tongue elevation. Absent: drooling, trismus, muffled voice Throat exam: tonsillomegaly (Left). negative: tonsillar exudate Neck exam: Present: full ROM. Absent: tenderness, meningismus Respiratory exam: Present: normal lung sounds bilaterally. Absent: respiratory distress, wheezes, rales, rhonchi, stridor, accessory muscle use Cardiovascular Exam: Present: regular rate, normal heart sounds GI/Abdominal exam: Present: soft. Absent: distended, tenderness, rigid Extremities exam: Present: full ROM, normal capillary refill. Absent: pedal edema, calf tenderness Back exam: Absent: tenderness, rash noted Neurological exam: Present: alert, oriented X3, normal gait Psychiatric exam: Present: normal affect, normal mood Skin exam: Present: warm, dry, normal color. Absent: cyanosis, diaphoretic, pallor <Gallo Brewster - Last Filed: 12/28/21 06:38> Course Vital Signs 12/25/21 12/25/21 12/26/21 21:45 23:08 01:13 Temperature 98.2 F 98.7 F 97.2 F L Pulse Rate 83 76 70 Respiratory 18 19 19 Rate Blood Pressure 127/75 98/67 95/54 O2 Sat by Pulse 96 95 94 L Oximetry Medical Decision Making - Lab Data Result diagrams: 12/25/21 22:27 12/25/21 22:27 <Micheal Jackson - Last Filed: 12/26/21 00:24> - Lab Data Result diagrams: 12/25/21 22:27 12/25/21 22:27 <Gallo Brewster - Last Filed: 12/28/21 06:38> - Medical Decision Making Patient presents with elevated blood glucose levels for the past 2 days. No evidence of leukocytosis. Blood glucose level 488, anion gap 13, CO2 23 potassium 5.2 Patient was given two liters of normal saline and 13 units of IV insulin. Blood glucose level of 281. She'll be discharged home to follow up with primary care doctor next week. Return to emergency room or concerning symptoms. Case discussed with Dr. Maravilla ([facility]) - Lab Data Lab Results 12/25/21 12/25/21 12/25/21 Range/Units 21:58 22:00 22:27 WBC 10.0 (3.8-10.6) k/uL RBC 4.83 (3.80-5.40) m/uL Hgb 13.8 (11.4-16.0) gm/dL Hct 40.3 (34.0-46.0) % MCV 83.3 (80.0-100.0) fL MCH 28.5 (25.0-35.0) pg MCHC 34.2 (31.0-37.0) g/dL RDW 13.9 (11.5-15.5) % Plt Count 261 (150-450) k/uL MPV 11.0 Neutrophils % 63 % Lymphocytes % 29 % Monocytes % 5 % Eosinophils % 1 % Basophils % 1 % Neutrophils # 6.3 (1.3-7.7) k/uL Lymphocytes # 2.9 (1.0-4.8) k/uL Monocytes # 0.5 (0-1.0) k/uL Eosinophils # 0.1 (0-0.7) k/uL Basophils # 0.1 (0-0.2) k/uL Sodium (137-145) mmol/L Potassium (3.5-5.1) mmol/L Chloride (98-107) mmol/L Carbon Dioxide (22-30) mmol/L Anion Gap mmol/L BUN (7-17) mg/dL Creatinine (0.52-1.04) mg/dL Est GFR (CKD-EPI)AfAm (>60 ml/min/1.73 sqM) Est GFR (CKD-EPI)NonAf (>60 ml/min/1.73 sqM) Glucose (74-99) mg/dL POC Glucose (mg/dL) 494 H (70-110) mg/dL POC Glu Social Work Associate Martha Ontiveros Calcium (8.4-10.2) mg/dL Total Bilirubin (0.2-1.3) mg/dL AST (14-36) U/L ALT (4-34) U/L Alkaline Phosphatase (38-126) U/L Total Protein (6.3-8.2) g/dL Albumin (3.5-5.0) g/dL Amylase (30-110) U/L Lipase (23-300) U/L Urine Color Urine Appearance (Clear) Urine pH (5.0-8.0) Ur Specific [place] (1.001-1.035) Urine Protein (Negative) Urine Glucose (UA) (Negative) Urine Ketones (Negative) Urine Blood (Negative) Urine Nitrite (Negative) Urine Bilirubin (Negative) Urine Urobilinogen (<2.0) mg/dL Ur Leukocyte Esterase (Negative) Acetone, Qual (Negative) Coronavirus (PCR) Not Detected (Not Detectd) 12/25/21 12/25/21 12/25/21 Range/Units 22:27 22:55 23:43 WBC (3.8-10.6) k/uL RBC (3.80-5.40) m/uL Hgb (11.4-16.0) gm/dL Hct (34.0-46.0) % MCV (80.0-100.0) fL MCH (25.0-35.0) pg MCHC (31.0-37.0) g/dL RDW (11.5-15.5) % Plt Count (150-450) k/uL MPV Neutrophils % % Lymphocytes % % Monocytes % % Eosinophils % % Basophils % % Neutrophils # (1.3-7.7) k/uL Lymphocytes # (1.0-4.8) k/uL Monocytes # (0-1.0) k/uL Eosinophils # (0-0.7) k/uL Basophils # (0-0.2) k/uL Sodium 130 L (137-145) mmol/L Potassium 5.2 H (3.5-5.1) mmol/L Chloride 94 L (98-107) mmol/L Carbon Dioxide 23 (22-30) mmol/L Anion Gap 13 mmol/L BUN 17 (7-17) mg/dL Creatinine 0.86 (0.52-1.04) mg/dL Est GFR (CKD-EPI)AfAm >90 (>60 ml/min/1.73 sqM) Est GFR (CKD-EPI)NonAf >90 (>60 ml/min/1.73 sqM) Glucose 488 H (74-99) mg/dL POC Glucose (mg/dL) 428 H (70-110) mg/dL POC Glu Social Work Associate ID Martha Lux Calcium 9.4 (8.4-10.2) mg/dL Total Bilirubin 0.7 (0.2-1.3) mg/dL AST 44 H (14-36) U/L ALT 42 H (4-34) U/L Alkaline Phosphatase 88 (38-126) U/L Total Protein 7.1 (6.3-8.2) g/dL Albumin 4.4 (3.5-5.0) g/dL Amylase 36 (30-110) U/L Lipase 375 H (23-300) U/L Urine Color Colorless Urine Appearance Clear (Clear) Urine pH 7.0 (5.0-8.0) Ur Specific [place] 1.032 (1.001-1.035) Urine Protein Negative (Negative) Urine Glucose (UA) 4+ H (Negative) Urine Ketones Negative (Negative) Urine Blood Negative (Negative) Urine Nitrite Negative (Negative) Urine Bilirubin Negative (Negative) Urine Urobilinogen <2.0 (<2.0) mg/dL Ur Leukocyte Esterase Negative (Negative) Acetone, Qual Negative (Negative) Coronavirus (PCR) (Not Detectd) 12/26/21 Range/Units 00:56 WBC (3.8-10.6) k/uL RBC (3.80-5.40) m/uL Hgb (11.4-16.0) gm/dL Hct (34.0-46.0) % MCV (80.0-100.0) fL MCH (25.0-35.0) pg MCHC (31.0-37.0) g/dL RDW (11.5-15.5) % Plt Count (150-450) k/uL MPV Neutrophils % % Lymphocytes % % Monocytes % % Eosinophils % % Basophils % % Neutrophils # (1.3-7.7) k/uL Lymphocytes # (1.0-4.8) k/uL Monocytes # (0-1.0) k/uL Eosinophils # (0-0.7) k/uL Basophils # (0-0.2) k/uL Sodium (137-145) mmol/L Potassium (3.5-5.1) mmol/L Chloride (98-107) mmol/L Carbon Dioxide (22-30) mmol/L Anion Gap mmol/L BUN (7-17) mg/dL Creatinine (0.52-1.04) mg/dL Est GFR (CKD-EPI)AfAm (>60 ml/min/1.73 sqM) Est GFR (CKD-EPI)NonAf (>60 ml/min/1.73 sqM) Glucose (74-99) mg/dL POC Glucose (mg/dL) 281 H (70-110) mg/dL POC Glu Social Work Associate ID Martha Lux Calcium (8.4-10.2) mg/dL Total Bilirubin (0.2-1.3) mg/dL AST (14-36) U/L ALT (4-34) U/L Alkaline Phosphatase (38-126) U/L Total Protein (6.3-8.2) g/dL Albumin (3.5-5.0) g/dL Amylase (30-110) U/L Lipase (23-300) U/L Urine Color Urine Appearance (Clear) Urine pH (5.0-8.0) Ur Specific [place] (1.001-1.035) Urine Protein (Negative) Urine Glucose (UA) (Negative) Urine Ketones (Negative) Urine Blood (Negative) Urine Nitrite (Negative) Urine Bilirubin (Negative) Urine Urobilinogen (<2.0) mg/dL Ur Leukocyte Esterase (Negative) Acetone, Qual (Negative) Coronavirus (PCR) (Not Detectd) Disposition <Micheal Jackson - Last Filed: 12/26/21 00:24> Is patient prescribed a controlled substance at d/c from ED?: No <Gallo Brewster - Last Filed: 12/28/21 06:38> Clinical Impression: Hyperglycemia Disposition: HOME SELF-CARE Condition: Good Instructions (If sedation given, give patient instructions): Diabetic Hyperglycemia (ED) Additional Instructions: Continue taking your previously prescribed medications. Contact your primary care doctor on Tuesday for continuation of care. Return to the emergency room with any new or concerning symptoms. Continue your diabetic diet. Referrals: Jesse Melendrez MD [Primary Care Provider] - 1-2 days
[2021-12-25 22:40] LABS: Basophils # (A) 0.1 k/uL (0-0.2); Basophils % (A) 1 %; Eosinophils # (A) 0.1 k/uL (0-0.7); Eosinophils % (A) 1 %; HCT 40.3 % (34.0-46.0); HGB 13.8 gm/dL (11.4-16.0); Lymphocytes # (A) 2.9 k/uL (1.0-4.8); Lymphocytes % (A) 29 %; MCH 28.5 pg (25.0-35.0); MCHC 34.2 g/dL (31.0-37.0); MCV 83.3 fL (80.0-100.0); Monocytes # (A) 0.5 k/uL (0-1.0); Monocytes % (A) 5 %; Neutrophils # (A) 6.3 k/uL (1.3-7.7); Neutrophils % (A) 63 %; Platelet Count 261 k/uL (150-450); RBC 4.83 m/uL (3.80-5.40); RDW 13.9 % (11.5-15.5)
[2021-12-25] MEDS ORDERED: INSULIN REGULAR 100 UNIT/ML VIAL (IV) IV ONE ×2 (22:54→23:44)
[2021-12-25 23:04] LABS: ALT 42 U/L (4-34); AST 44 U/L (14-36); African American GFR (CKD) >90 (>60 ml/min/1.73 sqM); Albumin 4.4 g/dL (3.5-5.0); Alkaline Phosphatase 88 U/L (38-126); Amylase 36 U/L (30-110); Anion Gap 13 mmol/L; Blood Urea Nitrogen 17 mg/dL (7-17); Calcium 9.4 mg/dL (8.4-10.2); Carbon Dioxide 23 mmol/L (22-30); Chloride 94 mmol/L (98-107); Glucose 488 mg/dL (74-99); Lipase 375 U/L (23-300); Non-African American GFR(CKD) >90 (>60 ml/min/1.73 sqM); Sodium 130 mmol/L (137-145); Total Bilirubin 0.7 mg/dL (0.2-1.3); Total Protein 7.1 g/dL (6.3-8.2)
[2021-12-25 23:05] LABS: Potassium 5.2 mmol/L (3.5-5.1)
[2021-12-25 23:08] LABS: Appearance,Urine Clear (Clear); Bilirubin,Urine Negative (Negative); Blood,Urine Negative (Negative); Color,Urine Colorless; Glucose,Urine (UA) 4+ (Negative); Ketones,Urine Negative (Negative); Leukocyte Esterase,Urine Negative (Negative); Nitrite,Urine Negative (Negative); Protein,Urine Negative (Negative); Specific Gravity,Urine 1.032 (1.001-1.035); Urobilinogen,Urine <2.0 mg/dL (<2.0)
[2021-12-25 23:09] VITALS: RESP 19
[2021-12-26] MEDS ORDERED: SODIUM CHLORIDE 0.9% 1,000 ML IV ONE (00:05)
[2021-12-26 01:14] VITALS: BP 95/54; PULSE 70; TEMP 97.2
[2021-12-26 11:36] LABS: Glucose,Whole Blood 428 mg/dL (70-110)
[2021-12-26 11:36] LABS: Glucose,Whole Blood 281 mg/dL (70-110)
== END 2021-12-26 01:00 | disposition home or self-care (01) ==
LOC: EC 21:37
DX: E11.65 Type 2 diabetes mellitus with hyperglycemia (principal); J45.909 Unspecified asthma, uncomplicated; F41.9 Anxiety disorder, unspecified; F31.9 Bipolar disorder, unspecified; F17.200 Nicotine dependence, unspecified, uncomplicated; F12.90 Cannabis use, unspecified, uncomplicated; Z88.5 Allergy status to narcotic agent
CPT/HCPCS: 36415; 80053; 81003; 82009; 82150; 83690; 85025; 87635; 96360; 96361; 99284

== ENCOUNTER → 2022-07-02 | Outpatient (CLI) | payer OTHER ==
[2022-07-02 16:11] LABS: INR 0.9 (<1.2); Partial Thromboplastin Time 22.7 sec (22.0-30.0); Prothrombin Time 9.6 sec (9.0-12.0)
[2022-07-02 20:46] LABS: Basophils # (A) 0.08 X 10*3/uL (0.00-0.10); Basophils % (A) 0.8 %; Eosinophils # (A) 0.12 X 10*3/uL (0.04-0.35); Eosinophils % (A) 1.1 %; HCT 41.1 % (37.2-46.3); HGB 12.9 g/dL (12.0-15.0); Immature Grans, Automated 0.6 %; Lymphocytes # (A) 2.72 X 10*3/uL (0.90-5.00); Lymphocytes % (A) 25.9 %; MCH 27.7 pg (27.0-32.0); MCHC 31.4 g/dL (32.0-37.0); MCV 88.4 fL (80.0-97.0); Mean Platelet Volume 12.7 fL (9.5-12.2); Monocytes # (A) 0.73 X 10*3/uL (0.20-1.00); NRBC Per 100 WBC 0 /100 WBCS (0.0-0.0); Neutrophils # (A) 6.78 X 10*3/uL (1.80-7.70); Neutrophils % (A) 64.6 %; Platelet Count 314 X 10*3/uL (140-440); RBC 4.65 X 10*6/uL (4.10-5.20); RDW 15.8 % (11.5-14.5); WBC 10.49 X 10*3/uL (4.50-10.00)
[2022-07-02 20:50] LABS: African American GFR (CKD) 128.3 (60.0-200.0); Albumin 4.5 g/dL (3.8-4.9); Albumin/Globulin Ratio 1.74 (1.60-3.17); Anion Gap 13.3 mmol/L (10.00-18.00); BUN/Creat Ratio 19.03 Ratio (12.00-20.00); Blood Urea Nitrogen 13.8 mg/dL (9.0-27.0); Calcium 9.5 mg/dL (8.7-10.3); Carbon Dioxide 23.9 mmol/L (20.0-27.5); Globulin 2.6 g/dL (1.6-3.3); Non-African American GFR(CKD) 110.7 (60.0-200.0); Potassium 4.3 mmol/L (3.5-5.5); Total Bilirubin 0.3 mg/dL (0.30-1.20)
== END | disposition home or self-care (01) ==
LOC: LABWHC1 15:05
PROVIDERS: ATTEND Family Medicine
DX: Z01.812 Encounter for preprocedural laboratory examination (principal)
CPT/HCPCS: 36415; 80053; 85025; 85610; 85730

== ENCOUNTER 2022-07-05 06:22 | Day surgery (SDC) | payer OTHER ==
[2022-07-01 11:24] VITALS: BMI 32.8
[~2022-07-05 06:22] MED LIST: ACETAMINOPHEN TAB 500 MG TAB PO PRN; HEPARIN SODIUM,PORCINE/PF 5,000 UNIT/0.5 ML SYRINGE SQ PRN
[2022-07-05 07:06] LABS: Glucose,Whole Blood 174 mg/dL (70-110)
[2022-07-05] MEDS ORDERED: ONDANSETRON 4 MG/2 ML VIAL ONE (07:08)
[2022-07-05] MEDS ORDERED: LACTATED RINGERS 1,000 ML IV ONE (07:10)
--- NOTE | 2022-07-05 07:25 | P.GSHP ---
History of Present Illness H&P Date: 07/05/22 Chief Complaint: Incarcerated umbilical hernia 32-year-old female known to our service. Previously scheduled in April. She rescheduled for today. She has an incarcerated umbilical hernia. Increasing in size. Mild pain at times. Past Medical History Past Medical History: Asthma, Diabetes Mellitus, GERD/Reflux Additional Past Medical History / Comment(s): Hypoglycemia. Diet Controlled Diabetes. History of Any Multi-Drug Resistant Organisms: MRSA Date of last positivie culture/infection: 04/17/19 MDRO Source:: ABDOMEN Past Surgical History: Adenoidectomy, Section, Orthopedic Surgery Additional Past Surgical History / Comment(s): Left knee surgery. Past Anesthesia/Blood Transfusion Reactions: No Reported Reaction Past Psychological History: Anxiety, Bipolar, Depression Smoking Status: Current every day smoker Past Alcohol Use History: None Reported Additional Past Alcohol Use History / Comment(s): Smokes <1/2ppd on and off since age 19. Past Drug Use History: None Reported - Past Family History Mother Family Medical History: No Reported History Medications and Allergies Home Medications Medication Instructions Recorded Confirmed Type No Known Home Medications 07/01/22 07/01/22 History Allergies Allergy/AdvReac Type Severity Reaction Status Date / Time codeine Allergy Anaphylaxis Verified 07/05/22 06:57 Surgical - Exam Vital Signs Temp Pulse Resp BP Pulse Ox 97.1 F L 68 14 100/65 96 07/05/22 06:51 07/05/22 06:51 07/05/22 06:51 07/05/22 06:51 07/05/22 06:51 Physical exam: General: Well-developed, well-nourished HEENT: Normocephalic, sclerae nonicteric Abdomen: Nontender, nondistended, incarcerated umbilical hernia Extremities: No edema Neuro: Alert and oriented Results - Labs Abnormal Lab Results - Last 24 Hours (Table) 07/05/22 Range/Units 07:03 POC Glucose (mg/dL) 174 H (70-110) mg/dL Assessment and Plan (1) Incarcerated umbilical hernia Narrative/Plan: 32-year-old female with incarcerated umbilical hernia. We'll proceed with open repair incarcerated umbilical hernia with mesh. Risks of bleeding, infection, recurrence, bladder and bowel injury, numbness, nerve injury were discussed with the patient. The patient understands and wishes to proceed. Current Visit: Yes Status: Acute Code(s): K42.0 - UMBILICAL HERNIA WITH OBSTRUCTION, WITHOUT GANGRENE SNOMED Code(s): 194588581
[2022-07-05] MEDS ORDERED: ROCURONIUM 10 MG/ML (5 ML VIAL) IV ONE (07:27)
[2022-07-05] MEDS ORDERED: LIDOCAINE 2% INJ 20 MG/ML (2 ML VIAL) ONE (07:27)
[2022-07-05] MEDS ORDERED: GLYCOPYRROLATE 0.2 MG/ML 2 ML VIAL ONE (07:27)
[2022-07-05] MEDS ORDERED: PROPOFOL 10 MG/ML 20 ML VIAL IV ONE (07:27)
[2022-07-05] MEDS ORDERED: NEOSTIGMINE 1 MG/ML 10 ML VIAL ONE (07:27)
[2022-07-05] MEDS ORDERED: SUCCINYLCHOLINE CHLORIDE 200 MG/10 ML VIAL IV ONE (07:27)
[2022-07-05] MEDS ORDERED: fentaNYL (PF) 50 MCG/ML 2 ML AMP ONE (07:27)
[2022-07-05] MEDS ORDERED: MIDAZOLAM 2 MG/2 ML VIAL ONE (07:27)
[2022-07-05] MEDS ORDERED: KETOROLAC 15 MG/ML 1 ML VIAL ONE (07:27)
[2022-07-05] MEDS ORDERED: BUPIVACAINE (PF) 0.25% 30 ML VIAL SQ ONE ×2 (07:48→08:50)
[2022-07-05] MEDS ORDERED: HYDROmorphone 1 MG/ML 1 ML SYRINGE IVP PRN (09:16)
[2022-07-05] MEDS ORDERED: HYDROmorphone 0.5 MG/0.5 ML SYRINGE IVP PRN (09:16)
[2022-07-05] MEDS ORDERED: NALOXONE 0.4 MG/ML 1 ML VIAL IV PRN (09:16)
[2022-07-05] MEDS ORDERED: ONDANSETRON 4 MG/2 ML VIAL IVP PRN (09:16)
[2022-07-05] MEDS ORDERED: HYDROcodone/APAP 5-325MG 1 EACH TAB PO PRN (09:16)
[2022-07-05] MEDS ORDERED: ACETAMINOPHEN TAB 325 MG TAB PO PRN (09:16)
[2022-07-05] MEDS ORDERED: HYDROmorphone 0.5 MG/0.5 ML SYRINGE IVP ONE (09:26)
--- NOTE | 2022-07-05 09:35 | P.OP ---
Date of Procedure: 07/05/22 Procedure(s) Performed: PREOPERATIVE DIAGNOSIS: Incarcerated umbilical hernia POSTOPERATIVE DIAGNOSIS: Same PROCEDURE: Open repair incarcerated umbilical hernia with mesh SURGEON: Dr. Harden ANESTHESIA: General OPERATIVE PROCEDURE DETAILS: Patient placed on the operating table in the supine position. Abdomen was prepped and draped in usual sterile fashion. A curvilinear periumbilical incision was made on the right hand side. Dissection through the subcutaneous tissues took place using electrocautery. The patient had a incarcerated hernia present. The hernia sac was carefully dissected away from the surrounding structures including the umbilicus itself. The sac was opened. A large amount of omentum was adherent to the hernia sac. A portion of the omentum was excised. This was sent to pathology. The hernia sac was then excised. The patient had a fascia that was protuberant at the umbilicus. The defect after excision of the hernia sac was 5.5 x 3.5 cm. The peritoneum here was quite thin and we were unable to develop a preperitoneal pocket. An 8 cm ventral ex mesh was placed and sutured to the fascia using trans-fascial 0 Ethibond sutures. Secure strap was also utilized circumferentially. Following that the fascial defect was reapproximated using interrupted 0 Ethibond mattress sutures. The folding edge was sutured down using 0 Ethibond sutures as well. A drain was placed anterior to the fascia exiting through the left lower abdominal wall. This was sutured in place using a 3-0 silk stitch. The subcutaneous tissues were closed using 3-0 Vicryl sutures. The skin was closed using a running 4-0 Monocryl suture. Skin glue and sterile dressings were applied. HERNIA CHARACTERISTICS: Length: 5.5 cm Width: 3.5 cm Type: Incarcerated umbilical TYPE OF MESH USED: 8 cm round ventral ex LOCATION OF MESH: Sub-lay intraperitoneal FIXATION: Trans-fascial 0 Ethibond PREOPERATIVE DISCUSSION ON SMOKING CESSASTION: Yes PREOPERATIVE DISCUSSION ON MORBID OBESITY: Yes PREOPERATIVE DISCUSSION ON APPROPRIATE USE OF NARCOTIC USE: Yes PREOPERATIVE EDUCATION: Multi Modal, Smoking Cessation and Weight Loss with BMI over 35. DISPOSITION: Stable to recovery room
[2022-07-05] MEDS ORDERED: diphenhydrAMINE 50 MG/ML 1 ML VIAL ONE (09:59)
[2022-07-05] MEDS ORDERED: diphenhydrAMINE 50 MG/ML 1 ML VIAL IVP ONE (10:01)
[2022-07-05] MEDS: KETOROLAC 15 MG/ML 1 ML VIAL IVP SCH ×3 (10:49→23:27)
[2022-07-05] MEDS: D5-0.45% NACL WITH KCL 20MEQ/L 1,000 ML IV SCH ×2 (11:54→20:03)
[2022-07-05] MEDS: HEPARIN SODIUM,PORCINE/PF 5,000 UNIT/0.5 ML SYRINGE SQ SCH ×2 (15:38→23:27)
[2022-07-05] MEDS: traMADol 50 MG TAB PO PRN (20:03)
[2022-07-05] MEDS: FAMOTIDINE 20 MG TAB PO SCH (20:03)
[2022-07-06] MEDS: KETOROLAC 15 MG/ML 1 ML VIAL IVP SCH ×2 (05:42→11:49)
[2022-07-06] MEDS: HEPARIN SODIUM,PORCINE/PF 5,000 UNIT/0.5 ML SYRINGE SQ SCH (08:10)
[2022-07-06] MEDS: FAMOTIDINE 20 MG TAB PO SCH (08:10)
[2022-07-06] MEDS: traMADol 50 MG TAB PO PRN (08:10)
[2022-07-06] MEDS: D5-0.45% NACL WITH KCL 20MEQ/L 1,000 ML IV SCH (09:57)
[2022-07-06 12:03] LABS: Glucose,Whole Blood 204 mg/dL (70-110)
[2022-07-06 12:13] LABS: Basophils % (A) 0 %; Eosinophils # (A) 0.1 k/uL (0-0.7); Eosinophils % (A) 1 %; HCT 37.9 % (34.0-46.0); HGB 12.2 gm/dL (11.4-16.0); Lymphocytes # (A) 1.5 k/uL (1.0-4.8); Lymphocytes % (A) 19 %; MCH 28.7 pg (25.0-35.0); MCHC 32.1 g/dL (31.0-37.0); MCV 89.4 fL (80.0-100.0); Mean Platelet Volume 9.7; Monocytes # (A) 0.4 k/uL (0-1.0); Monocytes % (A) 5 %; Neutrophils # (A) 5.8 k/uL (1.3-7.7); Neutrophils % (A) 73 %; Platelet Count 271 k/uL (150-450); RBC 4.24 m/uL (3.80-5.40); RDW 15.7 % (11.5-15.5)
--- NOTE | 2022-07-06 14:28 | P.DS ---
Providers Expected date of discharge: 07/06/22 Attending physician: Junior Harden Primary care physician: Stated None Hospital Course: Discharge diagnosis 1. Incarcerated umbilical hernia status post Open repair incarcerated umbilical hernia with mesh Hospital course This is a 32-year-old female with incarcerated umbilical hernia. She is status post Open repair incarcerated umbilical hernia with mesh. Patient tolerated surgery well. Her pain is controlled. She is up and ambulating. She is having flatus. She is afebrile. She is stable for discharge. Please refer to chart for any further details. Physician Obstetrics Specialist note has been reviewed by physician. Signing provider agrees with the documented findings, assessment, and plan of care. Patient Condition at Discharge: Stable Plan - Discharge Summary Discharge Rx Participant: Yes New Discharge Prescriptions: New oxyCODONE HCL [OxyIR] 5 mg PO Q6H PRN 3 Days #6 tab PRN Reason: Breakthrough Pain Discharge Medication List oxyCODONE HCL [OxyIR] 5 mg PO Q6H PRN 3 Days #6 tab 07/05/22 [Rx] Follow up Appointment(s)/Referral(s): Junior Harden MD [Medical Doctor] - 1 Week Activity/Diet/Wound Care/Special Instructions: No driving while taking OxyIR No lifting over 10 pounds You may shower. No soaking or tub baths for 2 weeks Very light activity until you are reevaluated at your follow up appointment with your surgeon Keep a log of DANIEL drain output and bring with you to your follow-up appointment Milk/strip drains 2-3 times a day Discharge Disposition: HOME SELF-CARE
[2022-07-06 14:36] VITALS: BP 94/58; PULSE 78; RESP 17; TEMP 99
== END 2022-07-06 15:02 | disposition home or self-care (01) ==
LOC: OR 06:22 → 4SSUR 09:05 → OR 07-06 15:02
PROVIDERS: ATTEND Surgery
DX: K42.0 Umbilical hernia with obstruction, without gangrene (principal); J45.909 Unspecified asthma, uncomplicated; E11.9 Type 2 diabetes mellitus without complications; K21.9 Gastro-esophageal reflux disease without esophagitis; F31.9 Bipolar disorder, unspecified; F41.9 Anxiety disorder, unspecified; F17.210 Nicotine dependence, cigarettes, uncomplicated; Z90.89 Acquired absence of other organs; Z98.890 Other specified postprocedural states; Z98.891 History of uterine scar from previous surgery; Z88.5 Allergy status to narcotic agent
CPT/HCPCS: 81025; 85025; 88302; 49594; C1781; J1200; J0690; J2405; J1170 ×2; J1885 ×2; J1644 ×2

== ENCOUNTER → 2022-07-12 | Outpatient (CLI) | payer OTHER ==
--- NOTE | 2022-07-12 09:08 | US ---
EXAMINATION TYPE: US abdomen limited DATE OF EXAM: 07/12/2022 COMPARISON: NONE CLINICAL INDICATION: Female, 32 years old with history of E16.2 HYPOGLYCEMIA, UNSPECIFIED; Diabetic g allbladder removed TECHNIQUE: Multiple sonographic images of the right upper quadrant are obtained. FINDINGS: EXAM MEASUREMENTS: Liver Length: 20.7 cm Gallbladder: Surgically absent CBD: .4 cm Right Kidney: 11.7 x 4.3 x 4.7 cm Pancreas: Most of the pancreas is visualized and shows no gross abnormal. Liver: Enlarged with increased echogenicity and some particulate attenuation. No focal lesion seen. Gallbladder: Surgically absent Evidence for sonographic Park's sign: no CBD: wnl Right Kidney: No hydronephrosis or masses seen IMPRESSION: 1. Hepatomegaly at 20.7 cm with at least moderate hepatic steatosis. Correlate with LFTs, lipid profi le, the patient risk factors. 2. No biliary ductal dilatation. Gallbladder is absent.
== END | disposition home or self-care (01) ==
LOC: RADUSWWP 08:16
PROVIDERS: ATTEND Family Medicine
DX: K76.0 Fatty (change of) liver, not elsewhere classified (principal); E11.649 Type 2 diabetes mellitus with hypoglycemia without coma
CPT/HCPCS: 76705

== ENCOUNTER → 2023-05-16 | Outpatient (CLI) | payer OTHER ==
--- NOTE | 2023-05-16 20:11 | MR ---
MRI right ankle HISTORY: Peroneal tendinitis, tarsal coalition, posterior tibial tendon disease. COMPARISON: None. TECHNIQUE: Multiecho multiplanar images of the right ankle were obtained. FINDINGS: There is a large subchondral cysts in the calcaneus of the posterior facet of the talocalcaneal artic ulation. There is posterior hypertrophic spurring. Otherwise it consistent with mild degeneration. There is no fracture or bone marrow edema. There is no evidence of tarsal coalition. There is no joint effusion. The sinus tarsi is normal. The Achilles tendon is intact. The posterior tibialis is normal without tear or tenosynovitis. The remaining flexor and extensor ten dons are normal. The peroneal tendons and tendon sheaths are normal. There is mild signal intensity within the substan ce of the anterior tibiofibular ligament raising the question of partial tearing. Clinical correlatio n is recommended. The remaining ligaments are intact. IMPRESSION: 1. 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 2. Questionable small partial tear of the anterior tibial fibular ligament. Clinical correlation mayur mmended. 3. No evidence of tarsal coalition. 4. No tendon tear or tenosynovitis involving the peroneal tendons, flexor tendons, extensor tendons. The Achilles tendon is intact.
== END | disposition home or self-care (01) ==
LOC: RADMRIMAIN 13:36
PROVIDERS: ATTEND Podiatrist Foot & Ankle Surgery
DX: M19.071 Primary osteoarthritis, right ankle and foot (principal); M76.71 Peroneal tendinitis, right leg; Q66.89 Other specified congenital deformities of feet; M76.821 Posterior tibial tendinitis, right leg

== ENCOUNTER 2023-07-13 13:44 | Emergency (ER) | payer OTHER ==
[2023-07-13] MEDS: ACETAMINOPHEN TAB 500 MG TAB PO STA (14:26)
--- NOTE | 2023-07-13 14:27 | ED ---
Lower Extremity Injury HPI - General Chief Complaint: Extremity Injury, Lower Stated Complaint: R ankle injury Time Seen by Provider: 07/13/23 14:02 Source: patient, RN notes reviewed Mode of arrival: ambulatory Limitations: no limitations - History of Present Illness Initial Comments: This is a 33-year-old female presents emergency department chief complaint of right ankle pain. Patient states that she was stepping out of her truck this afternoon taking groceries out of her car when she rolled her ankle and felt a popping sensation and heard a crack. Patient is having difficulty with bearing weight in addition to range of motion of the right ankle. She has point tenderness over the anterior foot with mild edema. Patient is following with an central communications specialist due to a cyst of the lateral right malleolus of the ankle. States that it was discussed she is a candidate for surgery and was instructed to for surgical removal if interested. - Related Data Previous Rx's Medication Instructions Recorded oxyCODONE HCL [OxyIR] 5 mg PO Q6H PRN 3 Days #6 tab 07/05/22 Allergies Allergy/AdvReac Type Severity Reaction Status Date / Time codeine Allergy Anaphylaxis Verified 07/13/23 14:02 Review of Systems ROS Statement: Those systems with pertinent positive or pertinent negative responses have been documented in the HPI. ROS Other: All systems not noted in ROS Statement are negative. Past Medical History Past Medical History: Asthma, Diabetes Mellitus, GERD/Reflux Additional Past Medical History / Comment(s): Hypoglycemia. Diet Controlled Diabetes. History of Any Multi-Drug Resistant Organisms: MRSA Date of last positivie culture/infection: 04/17/19 MDRO Source:: ABDOMEN Past Surgical History: Adenoidectomy, Section, Orthopedic Surgery Additional Past Surgical History / Comment(s): Left knee surgery. Past Anesthesia/Blood Transfusion Reactions: No Reported Reaction Past Psychological History: Anxiety, Bipolar, Depression Smoking Status: Current every day smoker Past Alcohol Use History: Occasional Past Drug Use History: None Reported, Marijuana - Past Family History Mother Family Medical History: No Reported History General Exam Limitations: no limitations General appearance: alert, in no apparent distress Head exam: Present: atraumatic, normocephalic, normal inspection Eye exam: Present: normal appearance, PERRL, EOMI. Absent: scleral icterus, conjunctival injection, periorbital swelling ENT exam: Present: normal exam, mucous membranes moist Neck exam: Present: normal inspection. Absent: tenderness, meningismus, lymphadenopathy Respiratory exam: Present: normal lung sounds bilaterally. Absent: respiratory distress, wheezes, rales, rhonchi, stridor Cardiovascular Exam: Present: regular rate, normal rhythm, normal heart sounds. Absent: systolic murmur, diastolic murmur, rubs, gallop, clicks GI/Abdominal exam: Present: soft, normal bowel sounds. Absent: distended, tenderness, guarding, rebound, rigid Extremities exam: Present: normal inspection, full ROM, normal capillary refill. Absent: tenderness, pedal edema, joint swelling, calf tenderness Right Ankle exam: Present: normal inspection, tenderness (Bolus), swelling, ecchymosis. Absent: full ROM (Pain with active plantarflexion and dorsiflexion), abrasion, laceration Foot/Toe exam: Present: tenderness, swelling (Anterior lateral forefoot) Neurovascular tendon exam: Present: no vascular compromise Back exam: Present: normal inspection Neurological exam: Present: alert, oriented X3, CN II-XII intact Psychiatric exam: Present: normal affect, normal mood Skin exam: Present: warm, dry, intact, normal color. Absent: rash Course Vital Signs 07/13/23 07/13/23 13:59 15:41 Temperature 98.6 F 98.6 F Pulse Rate 67 67 Respiratory 18 18 Rate Blood Pressure 145/82 O2 Sat by Pulse 99 99 Oximetry Medical Decision Making - Medical Decision Making Was pt. sent in by a medical professional or institution (MAIKOL Rea, BOILER TUBE REAMER, urgent care, hospital, or usp...) When possible be specific @ -No Did you speak to anyone other than the patient for history (EMS, parent, family, police, friend...)? What history was obtained from this source @ -No Did you review nursing and triage notes (agree or disagree)? Why? @ -I reviewed and agree with nursing and triage notes Were old charts reviewed (outside hosp., previous admission, EMS record, old EKG, old radiological studies, urgent care reports/EKG's, usp records)? Report findings @ -No old charts were reviewed Differential Diagnosis (chest pain, altered mental status, abdominal pain women, abdominal pain men, vaginal bleeding, weakness, fever, dyspnea, syncope, headache, dizziness, GI bleed, back pain, seizure, CVA, palpatations, mental health, musculoskeletal)? @Differential Musculoskeletal Muscular strain, contusion, ligament sprain, fracture, arthritis, septic arthritis, bursitis, cellulitis, muscle spasm, nerve compression, DVT, arterial occlusion, herpes zoster, electrolyte abnormality, tumor.... This is not meant to be in all inclusive list EKG interpreted by me (3pts min.). @ -None X-rays interpreted by me (1pt min.). @ -X-ray of right foot and ankle no acute bony abnormality or process noted CT interpreted by me (1pt min.). @ -None done U/S interpreted by me (1pt. min.). @ -None done What testing was considered but not performed or refused? (CT, X-rays, U/S, labs)? Why? @ -None What meds were considered but not given or refused? Why? @ -None Did you discuss the management of the patient with other professionals (professionals i.e. , PA, BOILER TUBE REAMER, lab, RT, psych nurse, adoption social worker, can closing machine operator, teacher, equal employment opportunity officer, case operator)? Give summary @ -No Was smoking cessation discussed for >3mins.? @ -No Was critical care preformed (if so, how long)? @ -No Were there social determinants of health that impacted care today? How? (Homelessness, low income, unemployed, alcoholism, drug addiction, transportation, low edu. Level, literacy, decrease access to med. care, snf, rehab)? @ -No Was there de-escalation of care discussed even if they declined (Discuss DNR or withdrawal of care, Hospice)? DNR status @ -No What co-morbidities impacted this encounter? (DM, HTN, Smoking, COPD, CAD, Cancer, CVA, ARF, Chemo, Hep., AIDS, mental health diagnosis, sleep apnea, morb id obesity)? @ -None Was patient admitted / discharged? Hospital course, mention meds given and route, prescriptions, significant lab abnormalities, going to OR and other pertinent info. @ -33-year-old female with right foot and ankle pain. On examination patient noted to have mild tenderness over the right lateral forefoot and pain with active range of motion. Patient will be sent for imaging in addition to offered pain medication. Discussed with patient that x-rays reveal no acute fracture or dislocation. Patient was placed in Jake wrap and instructed to continue to rest the affected ankle, ice, elevate, and cycle Tylenol and Motrin as needed for pain relief. Use of compression will hand etcher helper in swelling as well. Patient was provided with a work note. All questions answered at bedside. Strict return parameters, patient in agreement. Case discussed with Dr. Mcarthur Undiagnosed new problem with uncertain prognosis? @ -No Drug Therapy requiring intensive monitoring for toxicity (Heparin, Nitro, Insulin, Cardizem)? @ -No Were any procedures done? @ -No Diagnosis/symptom? @ -Right ankle pain Acute, or Chronic, or Acute on Chronic? @ -Acute Uncomplicated (without systemic symptoms) or Complicated (systemic symptoms)? @ -Uncomplicated Side effects of treatment? @ -No Exacerbation, Progression, or Severe Exacerbation? @ -No Poses a threat to life or bodily function? How? (Chest pain, [place], [place], pneumonia, PE, COPD, DKA, ARF, appy, cholecystitis, CVA, Diverticulitis, Homicidal, Suicidal, threat to staff... and all critical care pts) @ -No Disposition Clinical Impression: Right ankle sprain Narrative: REturn to the emergency department if symptoms worsen or do not improve. Need to ice the affected ankle, rest, elevate and use compression. Cycle Tylenol and Motrin as needed for pain relief. Disposition: HOME SELF-CARE Condition: Good Instructions (If sedation given, give patient instructions): Ankle Sprain (ED) Is patient prescribed a controlled substance at d/c from ED?: No Referrals: Jesse Melendrez MD [Primary Care Provider] - 1-2 days Time of Disposition: 15:06
--- NOTE | 2023-07-13 14:47 | XR ---
EXAMINATION TYPE: XR ankle complete RT, XR foot complete RT DATE OF EXAM: 07/13/2023 2:34 PM CLINICAL INDICATION:Female, 33 years old with history of injury, pain, swelling, known cyst; [facility] COMPARISON: None TECHNIQUE: XR ankle complete RT, XR foot complete RT; ankle is imaged in frontal, lateral and obliqu e projections. FINDINGS: There is no evidence of acute osseous pathology. No evidence of subluxation or dislocation. Kager's fat pad is intact. No radiopaque foreign bodies are identified. Multifocal degeneration changes throu ghout the joints of the foot with osteophyte formation and joint space narrowing. IMPRESSION: 1. No evidence of acute fracture. 2. Subcutaneous swelling around the ankle likely secondary to underlying soft tissue injury.
[2023-07-13 15:31] VITALS: PULSE 67; RESP 18; TEMP 98.6
[2023-07-13 16:25] VITALS: BP 145/82
== END 2023-07-13 15:42 | disposition home or self-care (01) ==
LOC: EC 13:44
DX: S93.401A Sprain of unspecified ligament of right ankle, initial encounter (principal); F17.200 Nicotine dependence, unspecified, uncomplicated; Z88.5 Allergy status to narcotic agent; X50.1XXA Overexertion from prolonged static or awkward postures, initial encounter
CPT/HCPCS: 99283

== ENCOUNTER 2024-03-09 11:09 | Emergency (ER) | payer OTHER ==
[2024-03-09 11:40] VITALS: RESP 16
--- NOTE | 2024-03-09 11:59 | ED ---
Lower Extremity Injury HPI - General Chief Complaint: Extremity Injury, Lower Stated Complaint: R ankle pain Time Seen by Provider: 03/09/24 11:24 Source: patient, RN notes reviewed Mode of arrival: ambulatory Limitations: no limitations - History of Present Illness Initial Comments: This is a 33-year-old female with history of DM presenting with right ankle pain (9/ten 1 day. Patient endorses pain initially starting about 1 year ago requiring extensive work up before discovery of small cyst superior to the lateral malleolus. Patient states she is unable to bear weight on her heel due to the pain, resorting to toe walking to elicit pain. Endorses infrequent use of Motrin 800 for pain control. Endorses upcoming pain management appointment on 01/25/2025. Denies sensation changes or color change of foot/calf. Onset/Timin -: days(s) Injury: Ankle: Right Severity scale (1-10): 9 Improves With: NSAID, immobilization, rest Worsens With: weight bearing, movement, palpation Context: other - Related Data Previous Rx's Medication Instructions Recorded oxyCODONE HCL [OxyIR] 5 mg PO Q6H PRN 3 Days #6 tab 07/05/22 predniSONE 50 mg PO DAILY #5 tab 03/09/24 Allergies Allergy/AdvReac Type Severity Reaction Status Date / Time codeine Allergy Anaphylaxis Verified 03/09/24 11:40 [id number] Reductase Allergy Unknown Verified 03/09/24 11:40 Inhibitor Review of Systems ROS Statement: Those systems with pertinent positive or pertinent negative responses have been documented in the HPI. ROS Other: All systems not noted in ROS Statement are negative. Past Medical History Past Medical History: Asthma, Diabetes Mellitus, GERD/Reflux Additional Past Medical History / Comment(s): Hypoglycemia. Diet Controlled Diabetes. History of Any Multi-Drug Resistant Organisms: MRSA Date of last positivie culture/infection: 04/17/19 MDRO Source:: ABDOMEN Past Surgical History: Adenoidectomy, Section, Orthopedic Surgery Additional Past Surgical History / Comment(s): Left knee surgery. Past Anesthesia/Blood Transfusion Reactions: No Reported Reaction Past Psychological History: Anxiety, Bipolar, Depression Smoking Status: Current every day smoker Past Alcohol Use History: Occasional Past Drug Use History: None Reported, Marijuana - Past Family History Mother Family Medical History: No Reported History General Exam Limitations: no limitations General appearance: alert, in no apparent distress Head exam: Present: atraumatic, normocephalic, normal inspection Eye exam: Present: normal appearance, PERRL, EOMI. Absent: scleral icterus, conjunctival injection, periorbital swelling ENT exam: Present: normal exam, mucous membranes moist Neck exam: Present: normal inspection. Absent: tenderness, meningismus, lymphadenopathy Respiratory exam: Present: normal lung sounds bilaterally. Absent: respiratory distress, wheezes, rales, rhonchi, stridor Cardiovascular Exam: Present: regular rate, normal rhythm, normal heart sounds. Absent: systolic murmur, diastolic murmur, rubs, gallop, clicks GI/Abdominal exam: Present: soft, normal bowel sounds. Absent: distended, tenderness, guarding, rebound, rigid Extremities exam: Present: full ROM, tenderness (Positive diffuse right ankle, proximal dorsal foot and distal RLE tenderness and mild edema. Negative erythema, warmth.), normal capillary refill, other (Distal RLE neurovascular motor function intact. Dorsalis pedis pulse +2). Absent: pedal edema, joint swelling, calf tenderness Back exam: Present: normal inspection Neurological exam: Present: alert, oriented X3, CN II-XII intact Psychiatric exam: Present: normal affect, normal mood Skin exam: Present: warm, dry, intact, normal color. Absent: rash Course Vital Signs 03/09/24 11:37 Temperature 98 F Pulse Rate 84 Respiratory 16 Rate Blood Pressure 109/71 O2 Sat by Pulse 96 Oximetry Medical Decision Making - Medical Decision Making Was pt. sent in by a medical professional or institution (, PA, SONOGRAPHY TECHNICIAN, urgent care, hospital, or snf...) When possible be specific @ -[No] Did you speak to anyone other than the patient for history (EMS, parent, family, police, friend...)? What history was obtained from this source @ -[No] Did you review nursing and triage notes (agree or disagree)? Why? @ -[I reviewed and agree with nursing and triage notes] Were old charts reviewed (outside hosp., previous admission, EMS record, old EKG, old radiological studies, urgent care reports/EKG's, snf records)? Report findings @ -[No old charts were reviewed] Differential Diagnosis (chest pain, altered mental status, abdominal pain women, abdominal pain men, vaginal bleeding, weakness, fever, dyspnea, syncope, headache, dizziness, GI bleed, back pain, seizure, CVA, palpatations, mental health, musculoskeletal)? @ -Ankle sprain, ankle fracture, ankle dislocation, ankle cyst, foot fracture, Catherine fracture, Lisfranc fracture is not an exhaustive list EKG interpreted by me (3pts min.). @ -Not done X-rays interpreted by me (1pt min.). @ -[None done] CT interpreted by me (1pt min.). @ -[None done] U/S interpreted by me (1pt. min.). @ -[None done] What testing was considered but not performed or refused? (CT, X-rays, U/S, labs)? Why? @ -[None] What meds were considered but not given or refused? Why? @ -[None] Did you discuss the management of the patient with other professionals (professionals i.e. , PA, SONOGRAPHY TECHNICIAN, lab, RT, psych nurse, social work associate, tie in hand, teacher, agricultural technical officer, continuous pillowcase cutter)? Give summary @ -[No] Was smoking cessation discussed for >3mins.? @ -[No] Was critical care preformed (if so, how long)? @ -[No] Were there social determinants of health that impacted care today? How? (Homelessness, low income, unemployed, alcoholism, drug addiction, transportation, low edu. Level, literacy, decrease access to med. care, detention, rehab)? @ -[No] Was there de-escalation of care discussed even if they declined (Discuss DNR or withdrawal of care, Hospice)? DNR status @ -[No] What co-morbidities impacted this encounter? (DM, HTN, Smoking, COPD, CAD, Cancer, CVA, ARF, Chemo, Hep., AIDS, mental health diagnosis, sleep apnea, morbid obesity)? @ -[None] Was patient admitted / discharged? Hospital course, mention meds given and route, prescriptions, significant lab abnormalities, going to OR and other pertinent info. @ -[hospital course] Undiagnosed new problem with uncertain prognosis? @ -[No] Drug Therapy requiring intensive monitoring for toxicity (Heparin, Nitro, Insulin, Cardizem)? @ -[No] Were any procedures done? @ -[No] Diagnosis/symptom? @ -[default] Acute, or Chronic, or Acute on Chronic? @ -Acute on chronic Uncomplicated (without systemic symptoms) or Complicated (systemic symptoms)? @ -Uncomplicated Side effects of treatment? @ -[No] Exacerbation, Progression, or Severe Exacerbation? @ -[No] Poses a threat to life or bodily function? How? (Chest pain, [place], [place], pneumonia, PE, COPD, DKA, ARF, appy, cholecystitis, CVA, Diverticulitis, Homicidal, Suicidal, threat to staff... and all critical care pts) @ -[No] Disposition Clinical Impression: Ankle pain, right Disposition: HOME SELF-CARE Condition: Good Prescriptions: predniSONE 50 mg PO DAILY #5 tab Is patient prescribed a controlled substance at d/c from ED?: No Referrals: Jesse Melendrez MD [Primary Care Provider] - 1-2 days Time of Disposition: 13:22
[2024-03-09] MEDS: methylPREDNISolone SOD SUCCI 125 MG/2 ML VIAL IM ONE (12:04)
[2024-03-09] MEDS: KETOROLAC 15 MG/ML 1 ML VIAL IM STA (12:04)
--- NOTE | 2024-03-09 12:20 | XR ---
EXAMINATION TYPE: XR ankle complete RT DATE OF EXAM: 03/09/2024 12:05 PM COMPARISON: 07/13/2023 CLINICAL INDICATION: Female, 33 years old with history of Right ankle pain, no trauma, pain TECHNIQUE: 3 view(s) obtained. FINDINGS: Ankle mortise is intact. Soft tissues appear normal. No acute fracture or dislocation evident. Follow up exams can be performed 7-10 days from acute trauma for continued pain. IMPRESSION: 1. No acute osseous abnormality right ankle [facility], Workstation: [facility], 03/09/2024 12:17 PM
[2024-03-09 13:43] VITALS: BP 96/63; PULSE 81; TEMP 97.9
== END 2024-03-09 13:45 | disposition home or self-care (01) ==
LOC: EC 11:09
DX: M25.571 Pain in right ankle and joints of right foot (principal); F17.200 Nicotine dependence, unspecified, uncomplicated; Z88.5 Allergy status to narcotic agent; Z88.8 Allergy status to other drugs, medicaments and biological substances
CPT/HCPCS: 99283 ×2; 96372 ×3; 73610; J1885; J2919

== ENCOUNTER 2024-05-16 07:26 | Emergency (ER) | payer OTHER ==
--- NOTE | 2024-05-16 07:43 | ED ---
Abdominal Pain HPI - General Chief Complaint: Nausea/Vomiting/Diarrhea Stated Complaint: ABD PAIN Time Seen by Provider: 05/16/24 07:32 Source: patient, RN notes reviewed Mode of arrival: ambulatory Limitations: no limitations - History of Present Illness Initial Comments: This is a 34-year-old female who presents to the emergency department for abdominal pain, nausea, and vomiting. Patient states that she was woken up this morning by severe pain in the epigastric region. The pain has since persisted and she has now developed nausea and vomiting. Denies any changes in bowel/bladder habits. She has no history of similar pain in the past. She does have a history of multiple surgeries on her abdomen including an appendectomy, cholecystectomy, C-sections, and repair of a previously incarcerated hernia. She does take once weekly Mounjaro, which she states does occasionally give her problems with abdominal pain and her bowels. MD Complaint: abdominal pain - Related Data Previous Rx's Medication Instructions Recorded predniSONE 50 mg PO DAILY #5 tab 03/09/24 HYDROcodone/APAP 10-325MG [[place] 1 tab PO Q4HR PRN 3 Days #18 tab 03/28/24 10-325] diazePAM [Valium] 5 mg PO DAILY 1 Days #2 tab 03/28/24 Metoclopramide [Reglan] 10 mg PO Q6H PRN #20 tab 05/16/24 Ondansetron Odt [Zofran Odt] 4 mg PO Q8HR PRN #20 tab 05/16/24 Pantoprazole Sodium 40 mg PO DAILY #14 tab 05/16/24 Allergies Allergy/AdvReac Type Severity Reaction Status Date / Time codeine Allergy Anaphylaxis Verified 05/16/24 07:30 [id number] Reductase Allergy Unknown Verified 05/16/24 07:30 Inhibitor Review of Systems ROS Statement: Those systems with pertinent positive or pertinent negative responses have been documented in the HPI. ROS Other: All systems not noted in ROS Statement are negative. Past Medical History Past Medical History: Asthma, Diabetes Mellitus, GERD/Reflux Additional Past Medical History / Comment(s): Hypoglycemia. Diet Controlled Diabetes. History of Any Multi-Drug Resistant Organisms: MRSA Date of last positivie culture/infection: 04/17/19 MDRO Source:: ABDOMEN Past Surgical History: Adenoidectomy, Section, Orthopedic Surgery Additional Past Surgical History / Comment(s): Left knee surgery. Past Anesthesia/Blood Transfusion Reactions: No Reported Reaction Past Psychological History: Anxiety, Bipolar, Depression Smoking Status: Current every day smoker Past Alcohol Use History: Occasional Past Drug Use History: None Reported, Marijuana - Past Family History Mother Family Medical History: No Reported History General Exam Limitations: no limitations General appearance: alert, in distress Head exam: Present: atraumatic, normocephalic, normal inspection Respiratory exam: Present: normal lung sounds bilaterally. Absent: respiratory distress, wheezes, rales, rhonchi, stridor Cardiovascular Exam: Present: regular rate, normal rhythm, normal heart sounds. Absent: systolic murmur, diastolic murmur, rubs, gallop, clicks GI/Abdominal exam: Present: soft, tenderness (epigastric). Absent: distended Neurological exam: Present: alert, oriented X3, CN II-XII intact Psychiatric exam: Present: normal affect, normal mood Skin exam: Present: warm, dry, intact, normal color. Absent: rash Course Vital Signs 05/16/24 05/16/24 05/16/24 07:28 08:12 09:52 Temperature 97.7 F 98.3 F Pulse Rate 83 77 71 Respiratory 14 15 16 Rate Blood Pressure 112/81 104/79 98/53 O2 Sat by Pulse 98 96 95 Oximetry 05/16/24 11:15 Temperature 98.0 F Pulse Rate 95 Respiratory 16 Rate Blood Pressure 100/62 O2 Sat by Pulse 92 L Oximetry Medical Decision Making - Medical Decision Making This is a 34-year-old female who presents to the emergency department for abdominal pain. Was pt. sent in by a medical professional or institution? @ -No Did you speak to anyone other than the patient for history? @ -No Did you review nursing and triage notes? @ -Yes, and I agree, it is accurate with regards to the patient's symptoms. Were old charts reviewed? @ -No Differential Diagnosis? @ -Differential Abdominal Pain Women: Appendicitis, Cholecystitis, diverticulosis, ischemic bowel, pancreatitis, hepatitis, UTI, gastroenteritis, AAA, incarcerated hernia, bowel obstruction, constipation, inflammatory bowel, hepatitis, peptic ulcer disease, splenic infarction, perforated viscus, vulvitis, ovarian torsion, PID, kidney stone, placenta abruption, this is not meant to be an all-inclusive list EKG interpreted by me (3pts min.)? @ -Not obtained X-rays interpreted by me (1pt min.)? @ -Not obtained CT interpreted by me (1pt min.)? @ -CT scan of the abdomen and pelvis obtained. My interpretation identifies small bowel feces sign. U/S interpreted by me (1pt. min.)? @ -Not obtained What testing was considered but not performed? (CT, X-rays, U/S, labs)? Why? @ -None What meds were considered but not given? Why? @ -None Did you discuss the management of the patient with other professionals? @ -No Did you reconcile home meds? @ -No Was smoking cessation discussed for >3mins.? @ -I discussed smoking cessation for greater than 3 minutes. The risk of smoking were discussed with the patient including but not limited to risks of cancer, stroke, coronary artery disease and COPD. Also discussed with patient were multiple methods of quitting smoking. Lastly we discussed the financial cost of smoking. Was critical care preformed (if so, how long)? @ -No Were there social determinants of health that impacted care today? How? (Homelessness, low income, unemployed, alcoholism, drug addiction, transportation, low edu. Level, literacy, decrease access to med. care, [facility], rehab)? @ -No Was there de-escalation of care discussed even if they declined? (Discuss DNR or withdrawal of care, Hospice)? @ -No What co-morbidities impacted this encounter? (DM, HTN, Smoking, COPD, CAD, Cancer, CVA, Hep., AIDS, mental health diagnosis, sleep apnea, morbid obesity)? @ -DM, smoking Was patient admitted / discharged? @ -Discharged. Lab work unremarkable. Urinalysis negative for signs of infection. CT scan of the abdomen and pelvis obtained revealing small bowel feces sign without dilated small bowel. There are no inflammatory changes or focal wall thickening. Findings are suggestive of delayed bowel transit. She does also have subtle perigastric fat stranding changes around the stomach and they advised correlation for acute gastritis. She was treated with IV fluids, pantoprazole, and medication for her pain and nausea. We were able to get symptoms to a tolerable level and she was tolerating oral intake. Prescription for pantoprazole provided with dosing instructions reviewed along with Zofran and Reglan for further management of nausea. Advised she take something like Benefiber or probiotics daily to help regulate her bowels and stimulate movement. She is also instructed to increase her fluid intake. Patient discharged home in stable condition and advised to follow-up with her PCP. Case discussed with ED attending Dr. Conklin. Return precautions reviewed in depth, the patient is instructed to return to the emergency department with any new, worsening, or concerning symptoms. Patient verbalized understanding. Undiagnosed new problem with uncertain prognosis? @ -None Drug Therapy requiring intensive monitoring for toxicity (Heparin, Nitro, Insulin, Cardizem)? @ -None Were any procedures done? @ -None Diagnosis/symptom? @ -Abdominal pain, gastritis, nausea and vomiting Acute, or Chronic, or Acute on Chronic? @ -Acute Uncomplicated (without systemic symptoms) or Complicated (systemic symptoms)? @ -Uncomplicated Side effects of treatment? @ -None Exacerbation, Progression, or Severe Exacerbation] @ -Not applicable Poses a threat to life or bodily function? @ -Unlikely - Lab Data Result diagrams: 05/16/24 08:00 05/16/24 08:00 Lab Results 05/16/24 05/16/24 05/16/24 Range/Units 08:00 08:00 08:00 WBC 10.6 (3.8-10.6) k/uL RBC 5.49 H (3.80-5.40) m/uL Hgb 15.9 (11.4-16.0) gm/dL Hct 48.3 H (34.0-46.0) % MCV 88.1 (80.0-100.0) fL MCH 29.0 (25.0-35.0) pg MCHC 32.9 (31.0-37.0) g/dL RDW 13.5 (11.5-15.5) % Plt Count 273 (150-450) k/uL MPV 8.8 Neutrophils % 58 % Lymphocytes % 32 % Monocytes % 5 % Eosinophils % 3 % Basophils % 1 % Neutrophils # 6.1 (1.3-7.7) k/uL Lymphocytes # 3.3 (1.0-4.8) k/uL Monocytes # 0.6 (0-1.0) k/uL Eosinophils # 0.3 (0-0.7) k/uL Basophils # 0.1 (0-0.2) k/uL Sodium 139 (137-145) mmol/L Potassium 4.7 (3.5-5.1) mmol/L Chloride 102 (98-107) mmol/L Carbon Dioxide 25 (22-30) mmol/L Anion Gap 12 mmol/L BUN 12 (7-17) mg/dL Creatinine 0.82 (0.52-1.04) mg/dL Est GFR (CKD-EPI)AfAm >90 (>60 ml/min/1.73 sqM) Est GFR (CKD-EPI)NonAf >90 (>60 ml/min/1.73 sqM) Glucose 118 H (74-99) mg/dL Plasma Lactic Acid Tristen 1.5 (0.7-2.0) mmol/L Calcium 9.4 (8.4-10.2) mg/dL Total Bilirubin 0.6 (0.2-1.3) mg/dL AST 28 (14-36) U/L ALT 28 (4-34) U/L Alkaline Phosphatase 59 (38-126) U/L Total Protein 7.6 (6.3-8.2) g/dL Albumin 4.8 (3.5-5.0) g/dL Amylase 40 (30-110) U/L Lipase 159 (23-300) U/L HCG, Qual Not Detected Urine Color Urine Appearance (Clear) Urine pH (5.0-8.0) Ur Specific Pitcher (1.001-1.035) Urine Protein (Negative) Urine Glucose (UA) (Negative) Urine Ketones (Negative) Urine Blood (Negative) Urine Nitrite (Negative) Urine Bilirubin (Negative) Urine Urobilinogen (<2.0) mg/dL Ur Leukocyte Esterase (Negative) Urine WBC (0-5) /hpf Ur Squamous Epith Cells (0-4) /hpf Urine Bacteria (None) /hpf 05/16/24 Range/Units 10:44 WBC (3.8-10.6) k/uL RBC (3.80-5.40) m/uL Hgb (11.4-16.0) gm/dL Hct (34.0-46.0) % MCV (80.0-100.0) fL MCH (25.0-35.0) pg MCHC (31.0-37.0) g/dL RDW (11.5-15.5) % Plt Count (150-450) k/uL MPV Neutrophils % % Lymphocytes % % Monocytes % % Eosinophils % % Basophils % % Neutrophils # (1.3-7.7) k/uL Lymphocytes # (1.0-4.8) k/uL Monocytes # (0-1.0) k/uL Eosinophils # (0-0.7) k/uL Basophils # (0-0.2) k/uL Sodium (137-145) mmol/L Potassium (3.5-5.1) mmol/L Chloride (98-107) mmol/L Carbon Dioxide (22-30) mmol/L Anion Gap mmol/L BUN (7-17) mg/dL Creatinine (0.52-1.04) mg/dL Est GFR (CKD-EPI)AfAm (>60 ml/min/1.73 sqM) Est GFR (CKD-EPI)NonAf (>60 ml/min/1.73 sqM) Glucose (74-99) mg/dL Plasma Lactic Acid Tristen (0.7-2.0) mmol/L Calcium (8.4-10.2) mg/dL Total Bilirubin (0.2-1.3) mg/dL AST (14-36) U/L ALT (4-34) U/L Alkaline Phosphatase (38-126) U/L Total Protein (6.3-8.2) g/dL Albumin (3.5-5.0) g/dL Amylase (30-110) U/L Lipase (23-300) U/L HCG, Qual Urine Color Colorless Urine Appearance Cloudy H (Clear) Urine pH 7.5 (5.0-8.0) Ur Specific Pitcher >1.050 H (1.001-1.035) Urine Protein Trace H (Negative) Urine Glucose (UA) Negative (Negative) Urine Ketones Negative (Negative) Urine Blood Negative (Negative) Urine Nitrite Negative (Negative) Urine Bilirubin Negative (Negative) Urine Urobilinogen <2.0 (<2.0) mg/dL Ur Leukocyte Esterase Trace H (Negative) Urine WBC 4 (0-5) /hpf Ur Squamous Epith Cells 50 H (0-4) /hpf Urine Bacteria Rare H (None) /hpf - Radiology Data Radiology results: report reviewed, image reviewed Disposition Clinical Impression: Abdominal pain, Gastritis, Nausea & vomiting, Nicotine dependence Disposition: HOME SELF-CARE Instructions (If sedation given, give patient instructions): Gastritis (ED), Acute Nausea and Vomiting (ED), Abdominal Pain (ED) Additional Instructions: Return to the emergency department with any new, worsening, or concerning symptoms. Begin taking the pantoprazole daily for the next 2 weeks. You can take the Zofran up to every 8 hours as needed for nausea and vomiting. The Reglan can be taken up to every 6 hours as needed for nausea and vomiting. Consider taking something like Benefiber or probiotics daily to help stimulate your bowels and regulate your bowel movements. Slowly advance your diet as tole rated and make sure you remain well-hydrated. Follow up with your primary care provider in 1-2 days. Prescriptions: Pantoprazole Sodium 40 mg PO DAILY #14 tab Metoclopramide [Reglan] 10 mg PO Q6H PRN #20 tab PRN Reason: Nausea And Vomiting Ondansetron Odt [Zofran Odt] 4 mg PO Q8HR PRN #20 tab PRN Reason: Nausea And Vomiting Is patient prescribed a controlled substance at d/c from ED?: No Referrals: Jesse Melendrez MD [Primary Care Provider] - 1-2 days Time of Disposition: 10:43
[2024-05-16] MEDS: ONDANSETRON 4 MG/2 ML VIAL IVP STA ×2 (08:01→09:54)
[2024-05-16] MEDS: PANTOPRAZOLE 40 MG/10 ML VIAL IVP STA (08:01)
[2024-05-16] MEDS: SODIUM CHLORIDE 0.9% 1,000 ML IV ONE (08:01)
[2024-05-16] MEDS: HYDROmorphone 1 MG/ML 1 ML SYRINGE IVP STA ×2 (08:02→09:54)
[2024-05-16 08:36] LABS: Basophils # (A) 0.1 k/uL (0-0.2); Basophils % (A) 1 %; Eosinophils # (A) 0.3 k/uL (0-0.7); Eosinophils % (A) 3 %; HCT 48.3 % (34.0-46.0); HGB 15.9 gm/dL (11.4-16.0); Lymphocytes # (A) 3.3 k/uL (1.0-4.8); Lymphocytes % (A) 32 %; MCHC 32.9 g/dL (31.0-37.0); MCV 88.1 fL (80.0-100.0); Mean Platelet Volume 8.8; Monocytes # (A) 0.6 k/uL (0-1.0); Monocytes % (A) 5 %; Neutrophils # (A) 6.1 k/uL (1.3-7.7); Neutrophils % (A) 58 %; Platelet Count 273 k/uL (150-450); RBC 5.49 m/uL (3.80-5.40); RDW 13.5 % (11.5-15.5); WBC 10.6 k/uL (3.8-10.6)
[2024-05-16 08:48] LABS: HCG,Qualitative Serum Not Detected
[2024-05-16 08:52] LABS: ALT 28 U/L (4-34); AST 28 U/L (14-36); African American GFR (CKD) >90 (>60 ml/min/1.73 sqM); Albumin 4.8 g/dL (3.5-5.0); Alkaline Phosphatase 59 U/L (38-126); Amylase 40 U/L (30-110); Anion Gap 12 mmol/L; Blood Urea Nitrogen 12 mg/dL (7-17); Calcium 9.4 mg/dL (8.4-10.2); Carbon Dioxide 25 mmol/L (22-30); Chloride 102 mmol/L (98-107); Glucose 118 mg/dL (74-99); Lipase 159 U/L (23-300); Non-African American GFR(CKD) >90 (>60 ml/min/1.73 sqM); Potassium 4.7 mmol/L (3.5-5.1); Sodium 139 mmol/L (137-145); Total Bilirubin 0.6 mg/dL (0.2-1.3); Total Protein 7.6 g/dL (6.3-8.2)
[2024-05-16 09:52] VITALS: RESP 16
--- NOTE | 2024-05-16 09:57 | CT ---
EXAMINATION TYPE: CT abdomen pelvis w con CT DLP: 877.9 mGycm, Automated exposure control for dose reduction was used. DATE OF EXAM: 05/16/2024 9:42 AM COMPARISON: Abdominal ultrasound 07/12/2022, CT abdomen and pelvis 02/03/2019, 09/30/2015 CLINICAL INDICATION:Female, 34 years old with history of Epigastric pain; woke up this morning with a bdominal pain, primarily on left side nausea and vomiting. TECHNIQUE: Standard CT of the abdomen and pelvis following the administration of 100 cc of Isovue 3 00 IV contrast material. Coronal and sagittal reformats were performed. FINDINGS: LOWER CHEST: Minimal posterior dependent subsegmental atelectasis is noted. Linear atelectasis within the right middle lobe. ABDOMEN LIVER: Unremarkable GALLBLADDER AND BILE DUCTS: The gallbladder is surgically absent. No biliary ductal dilatation. PANCREAS: Unremarkable. SPLEEN: Unremarkable. ADRENAL GLANDS: Unremarkable. KIDNEYS AND URETERS: No evidence of hydronephrosis or renal calculus. The kidneys enhance symmetrical ly. Contrast is demonstrated within both collecting systems on the delayed phase. Subcentimeter proba ble cyst within the superior pole of the left kidney. PELVIS BLADDER: Incompletely distended but grossly unremarkable. REPRODUCTIVE: Anteverted uterus with a left ovarian corpus luteum. ABDOMEN & PELVIS STOMACH AND BOWEL: Small hiatal hernia, duodenum is unremarkable. Subtle perigastric fat stranding. N o focal bowel wall thickening or surrounding inflammatory changes. No pneumatosis. Small bowel feces sign without dilated small bowel. The appendix is not definitively visualized and may be surgically a bsent. No evidence of bowel obstruction. PERITONEUM: No evidence of pneumoperitoneum or free fluid. VASCULATURE: No evidence of aortic aneurysm. Few pelvic phleboliths. MUSCULOSKELETAL: No acute osseous abnormalities LYMPH NODES: No evidence for lymphadenopathy. SOFT TISSUE/ABDOMINAL WALL: Small supraumbilical fat filled hernia. IMPRESSION: 1. Small bowel feces sign without dilated small bowel. No inflammatory changes or focal wall thicken ing. Findings suggest delayed bowel transit. 2. Subtle perigastric fat stranding changes around the stomach. Correlate for acute gastritis. 3. Small hiatal hernia. [facility], , 05/16/2024 9:55 AM
[2024-05-16] MEDS: SODIUM CHLORIDE 0.9% 500 ML 500 ML IV ONE (10:53)
[2024-05-16] MEDS: traMADol 50 MG STARTER PACK 3 TAB BTL PO STA (11:17)
[2024-05-16] MEDS: ONDANSETRON 4 MG ODT STARTER PACK 2 TAB BTL PO STA (11:17)
[2024-05-16 11:29] VITALS: BP 100/62; PULSE 95; TEMP 98
[2024-05-16 11:37] LABS: Appearance,Urine Cloudy (Clear); Bacteria,Urine Rare /hpf; Bilirubin,Urine Negative (Negative); Blood,Urine Negative (Negative); Color,Urine Colorless; Glucose,Urine (UA) Negative (Negative); Ketones,Urine Negative (Negative); Leukocyte Esterase,Urine Trace (Negative); Nitrite,Urine Negative (Negative); PH, Urine 7.5 (5.0-8.0); Protein,Urine Trace (Negative); Squamous Epithelial Cell,Urine 50 /hpf (0-4); Urobilinogen,Urine <2.0 mg/dL (<2.0); WBC,Urine 4 /hpf (0-5)
[2024-05-16 11:38] LABS: Specific Gravity,Urine >1.050 (1.001-1.035)
== END 2024-05-16 11:29 | disposition home or self-care (01) ==
LOC: SUPCPDRO 07:26 → EC 07:26
DX: K29.70 Gastritis, unspecified, without bleeding (principal); E11.9 Type 2 diabetes mellitus without complications; F17.200 Nicotine dependence, unspecified, uncomplicated; Z88.5 Allergy status to narcotic agent; Z88.8 Allergy status to other drugs, medicaments and biological substances; Z90.89 Acquired absence of other organs; Z90.49 Acquired absence of other specified parts of digestive tract
CPT/HCPCS: 36415; 80053; 82150; 83605; 83690; 85025; 81001; 84703; 74177; 99284; 99406; 96374; 96375 ×2; 96376 ×2; 96361 ×3; J2405; J1171; Q9967; J2470

== ENCOUNTER 2024-09-17 18:24 | Emergency (ER) | payer OTHER ==
[2024-09-17 18:50] VITALS: TEMP 98.5
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
[2024-09-17] MEDS: ONDANSETRON ODT 4 MG TAB PO STA (20:00)
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
[2024-09-17] MEDS: ONDANSETRON 4 MG ODT STARTER PACK TAB BTL PO STA (20:21)
[2024-09-17 20:27] VITALS: BP 110/78; PULSE 70; RESP 18
== END 2024-09-17 20:33 | disposition home or self-care (01) ==
LOC: EC 18:24
DX: M25.511 Pain in right shoulder (principal); F17.200 Nicotine dependence, unspecified, uncomplicated; Z88.5 Allergy status to narcotic agent; Z88.8 Allergy status to other drugs, medicaments and biological substances; V49.40XA Driver injured in collision with unspecified motor vehicles in traffic accident, initial encounter; Y92.410 Unspecified street and highway as the place of occurrence of the external cause
CPT/HCPCS: 72070; 73030; 73060; 99284; S0119